=== PATIENT | female | born 1945 | race Caucasian/White ===

== ENCOUNTER 2022-06-12 09:02 | Outpatient (CLI) | payer OTHER, SELFPAY | END 2022-06-12 09:03 | disposition home or self-care (01) | PROVIDERS: Visit Provider Emergency Medicine | DX: R53.1 Weakness (principal) | CPT/HCPCS: A0425; A0428 ==

== ENCOUNTER 2022-06-12 11:24 | Outpatient (CLI) | payer OTHER, SELFPAY | END 2022-06-12 11:25 | disposition home or self-care (01) | LOC: AMB 06-14 14:04 | PROVIDERS: Visit Provider Emergency Medicine | DX: R53.1 Weakness (principal) | CPT/HCPCS: A0425; A0428 ==

== ENCOUNTER → 2022-10-18 10:00 | Inpatient (IN) | payer MEDICAID, SELFPAY ==
[2021-08-16] MEDS: ACETAMINOPHEN 500 MG TABLET 1000 MG PO ×3 (07:19→19:20)
[2021-08-16] MEDS: FLUOXETINE HCL 10 MG CAPSULE PO (07:20)
[2021-08-16] MEDS: OXYCODONE 5 MG TABLET PO ×4 (07:20→19:21)
[2021-08-16] MEDS: SENNOSIDES/DOCUSATE TABLET 2 TAB PO ×2 (07:21→19:22)
--- NOTE | 2021-08-16 10:29 | PC.NURSE ---
Covid-5 day nasal Covid Swab done at this time, sent to lab
[2021-08-16 12:33] LABS: SARS PCR* Negative SARS-CoV-2 (Negative)
--- NOTE | 2021-08-16 13:02 | PC.NURSE ---
Orders-Maggie STEARNS here was shown [facility] orders that were written from Visit to have Pump changed, per WASHROOM ATTENDANT no changes in current medications.
--- NOTE | 2021-08-16 13:05 | PC.NURSE ---
Dressing/foot-Maggie SALES TRADER here was updated on incision from Baclofen pump being changed, has steri-strips presents site is clean and dry per SALES TRADER keep open to air no dressing needs to be applied. Dressing was changed on right outer foot, area had very minimal drainage, looks much than yesterday.
[2021-08-16 16:00] VITALS: TEMP 37; O2SAT 98
[2021-08-17] MEDS: OXYCODONE 5 MG TABLET PO ×4 (04:14→19:03)
[2021-08-17] MEDS: ACETAMINOPHEN 500 MG TABLET 1000 MG PO ×3 (07:33→19:03)
[2021-08-17] MEDS: SENNOSIDES/DOCUSATE TABLET 2 TAB PO ×2 (08:29→19:03)
[2021-08-17] MEDS: FLUOXETINE HCL 10 MG CAPSULE PO (08:29)
--- NOTE | 2021-08-17 13:09 | PC.NURSE ---
Xkzotlwk-Mlojx-vcqerp remain in place, no S/S of infection C/O discomfort when turning in bed and transfers when asked where states Where do you think, Im cut up @ 0955 PRN pain medication given for comfort, at this time no complaints, O/A on right outer foot showed no drainage present, dressing changed.
[2021-08-17 16:00] VITALS: TEMP 35.7; O2SAT 99
--- NOTE | 2021-08-17 17:34 | PC.NURSE ---
[facility] upcoming appt on 08/23/21 for baclofen pump. Spoke to [facility] team and appointment is not needed at this time as she recently had baclofen pump replaced. Next baclofen pump refill is due by 01/08/22.
[2021-08-18] MEDS: OXYCODONE 5 MG TABLET PO ×4 (04:08→19:12)
[2021-08-18] MEDS: ACETAMINOPHEN 500 MG TABLET 1000 MG PO ×3 (08:31→19:12)
[2021-08-18] MEDS: FLUOXETINE HCL 10 MG CAPSULE PO (08:31)
[2021-08-18] MEDS: SENNOSIDES/DOCUSATE TABLET 2 TAB PO ×2 (08:31→19:12)
--- NOTE | 2021-08-18 15:00 | PC.PHA ---
Pharmacy Review ~ Patient continues on baclofen pump for MS. Pain managed with scheduled acetaminophen (TID) and oxycodone 5 mg tid. Oxycodone prn required similar number of times in June and July. Cefadroxil 500 mg bid started late July for cellulitis on foot. Fluoxetine 10 mg continues.
[2021-08-18 16:00] VITALS: TEMP 36.1; O2SAT 98
[2021-08-19] MEDS: OXYCODONE 5 MG TABLET PO ×5 (04:08→19:05)
[2021-08-19] MEDS: SENNOSIDES/DOCUSATE TABLET 2 TAB PO ×2 (07:34→19:05)
[2021-08-19] MEDS: FLUOXETINE HCL 10 MG CAPSULE PO (07:34)
[2021-08-19] MEDS: ACETAMINOPHEN 500 MG TABLET 1000 MG PO ×3 (07:34→19:05)
--- NOTE | 2021-08-19 12:41 | PC.NURSE ---
Recert Visit: Resident seen by Dr. Cuellar. Orders reviewed and renewed of 75 days without changes.
[2021-08-19 17:06] VITALS: BP 160/94; PULSE 60; RESP 16; TEMP 36.1; O2SAT 99
[2021-08-20] MEDS: OXYCODONE 5 MG TABLET PO ×5 (03:11→19:02)
[2021-08-20] MEDS: SENNOSIDES/DOCUSATE TABLET 2 TAB PO ×2 (07:15→19:03)
[2021-08-20] MEDS: ACETAMINOPHEN 500 MG TABLET 1000 MG PO ×3 (07:15→19:02)
[2021-08-20] MEDS: FLUOXETINE HCL 10 MG CAPSULE PO (07:15)
[2021-08-20 16:00] VITALS: TEMP 36.2; O2SAT 97
[2021-08-21] MEDS: OXYCODONE 5 MG TABLET PO ×4 (04:08→19:26)
[2021-08-21] MEDS: SENNOSIDES/DOCUSATE TABLET 2 TAB PO ×2 (07:18→19:26)
[2021-08-21] MEDS: ACETAMINOPHEN 500 MG TABLET 1000 MG PO ×3 (07:18→19:26)
[2021-08-21] MEDS: FLUOXETINE HCL 10 MG CAPSULE PO (07:18)
[2021-08-21 16:03] VITALS: TEMP 36.1; O2SAT 98
[2021-08-22] MEDS: OXYCODONE 5 MG TABLET PO ×4 (04:13→19:01)
[2021-08-22] MEDS: ACETAMINOPHEN 500 MG TABLET 1000 MG PO ×3 (07:12→19:01)
[2021-08-22] MEDS: SENNOSIDES/DOCUSATE TABLET 2 TAB PO ×2 (07:13→19:01)
[2021-08-22] MEDS: FLUOXETINE HCL 10 MG CAPSULE PO (07:13)
[2021-08-22 16:00] VITALS: TEMP 36.1; O2SAT 97
[2021-08-23] MEDS: OXYCODONE 5 MG TABLET PO ×6 (00:39→19:15)
[2021-08-23] MEDS: ACETAMINOPHEN 500 MG TABLET 1000 MG PO ×3 (07:27→19:15)
[2021-08-23] MEDS: SENNOSIDES/DOCUSATE TABLET 2 TAB PO ×2 (07:28→19:15)
[2021-08-23] MEDS: FLUOXETINE HCL 10 MG CAPSULE PO (07:28)
[2021-08-23 16:00] VITALS: TEMP 36.7; O2SAT 95
[2021-08-24] MEDS: OXYCODONE 5 MG TABLET PO ×4 (04:00→19:36)
[2021-08-24] MEDS: FLUOXETINE HCL 10 MG CAPSULE PO (07:01)
[2021-08-24] MEDS: ACETAMINOPHEN 500 MG TABLET 1000 MG PO ×3 (07:01→19:36)
[2021-08-24] MEDS: SENNOSIDES/DOCUSATE TABLET 2 TAB PO ×2 (07:01→19:36)
[2021-08-24 16:00] VITALS: TEMP 35.7; O2SAT 98
[2021-08-25] MEDS: OXYCODONE 5 MG TABLET PO ×4 (03:58→19:12)
[2021-08-25] MEDS: SENNOSIDES/DOCUSATE TABLET 2 TAB PO ×2 (08:39→19:12)
[2021-08-25] MEDS: ACETAMINOPHEN 500 MG TABLET 1000 MG PO ×3 (08:39→19:12)
[2021-08-25] MEDS: FLUOXETINE HCL 10 MG CAPSULE PO (08:40)
[2021-08-25 16:00] VITALS: TEMP 36.2; O2SAT 99
--- NOTE | 2021-08-26 02:22 | PC.NURSE ---
Week #1---care plan problems #1-19 reviewed. No changes made. Nothing added to temporary care plan. Will drink water in good amts. Staff hold the covered mug or glass while she drinks thru a straw. Pain---did c/o abd. pain at noc x 2---related to surgery to replace Baclofen pump. Relief with scheduled Oxycodone 5 mg. Continues to receive Tylenol 1000 mg tid and Oxycodone 5 mg qid and q4h prn.
[2021-08-26] MEDS: OXYCODONE 5 MG TABLET PO ×4 (04:19→19:34)
--- NOTE | 2021-08-26 06:51 | PC.NURSE ---
Week #1: Care plan problems -19 and temporary care plan reviewed. No changes made. Nothing added to temporary care plan. Resident needs total assistance of 1-2 with dressing, grooming, personal hygiene and bathing. Bed bath only. Is unable to tolerate bathing in the tub d/t back/bottom pain and poor posture. One assist with oral cares. May require partial to total assistance with feeding. Uses covered cups for all liquids. Is on regular diet, small portions per her request. No problems noted with her eating patterns. Pain: Has chronic pain controlled with Tylenol 1000 mg TID, Oxycodone 5 mg QID & Q4H PRN and has used occasionally. She can verbalize when in pain and other times staff anticipates.
[2021-08-26] MEDS: ACETAMINOPHEN 500 MG TABLET 1000 MG PO ×3 (07:18→19:34)
[2021-08-26] MEDS: SENNOSIDES/DOCUSATE TABLET 2 TAB PO ×2 (07:18→19:34)
[2021-08-26] MEDS: FLUOXETINE HCL 10 MG CAPSULE PO (07:18)
[2021-08-26 10:37] VITALS: BP 132/70; PULSE 69; RESP 18; TEMP 36.4; O2SAT 98
--- NOTE | 2021-08-26 10:42 | PC.NURSE ---
Podiatry: Resident seen by In House Shafting Worker on 08/25/21.
[2021-08-26 21:33] VITALS: TEMP 36.3; O2SAT 99
[2021-08-27] MEDS: OXYCODONE 5 MG TABLET PO ×4 (04:24→19:18)
[2021-08-27] MEDS: FLUOXETINE HCL 10 MG CAPSULE PO (07:11)
[2021-08-27] MEDS: ACETAMINOPHEN 500 MG TABLET 1000 MG PO ×3 (07:11→19:13)
[2021-08-27] MEDS: SENNOSIDES/DOCUSATE TABLET 2 TAB PO ×2 (07:12→19:18)
[2021-08-27 17:19] VITALS: TEMP 36.6; O2SAT 98
[2021-08-28] MEDS: OXYCODONE 5 MG TABLET PO ×5 (04:15→20:13)
[2021-08-28] MEDS: ACETAMINOPHEN 500 MG TABLET 1000 MG PO ×3 (07:01→20:13)
[2021-08-28] MEDS: SENNOSIDES/DOCUSATE TABLET 2 TAB PO ×2 (07:02→20:13)
[2021-08-28] MEDS: FLUOXETINE HCL 10 MG CAPSULE PO (07:02)
[2021-08-28 16:00] VITALS: TEMP 36.3; O2SAT 95
[2021-08-29] MEDS: OXYCODONE 5 MG TABLET PO ×5 (03:24→19:25)
[2021-08-29] MEDS: SENNOSIDES/DOCUSATE TABLET 2 TAB PO ×2 (07:13→19:25)
[2021-08-29] MEDS: FLUOXETINE HCL 10 MG CAPSULE PO (07:13)
[2021-08-29] MEDS: ACETAMINOPHEN 500 MG TABLET 1000 MG PO ×3 (07:13→19:25)
--- NOTE | 2021-08-29 13:41 | PC.NURSE ---
Status/foot-Noted to have clear drainage from nose 90% of shift, Afebrile @ 99.4 SATS 94% P-64 LS clear, face flushed at times, no change in appetite, had confusion off and on through out shift, no change in outer right foot, remains open with scant amt of dried blood on dressing.
[2021-08-29 21:33] VITALS: TEMP 36.6; O2SAT 95
--- NOTE | 2021-08-29 21:35 | PC.NURSE ---
Status: Resident confused on PM shift asking press writer if she was going to the [facility] or going to [place] tomorrow and, that she needed to go on the toilet. Resident was easy to redirect but, only for a short period of time.
[2021-08-30] MEDS: OXYCODONE 5 MG TABLET PO ×5 (04:18→19:22)
--- NOTE | 2021-08-30 05:08 | PC.NURSE ---
Status---no runny nose during the noc. Face not flushed. Temp was 99.5 at 0430. Took fluids as usual. No increased confusion.
[2021-08-30] MEDS: FLUOXETINE HCL 10 MG CAPSULE PO (07:18)
[2021-08-30] MEDS: SENNOSIDES/DOCUSATE TABLET 2 TAB PO ×2 (07:18→19:22)
[2021-08-30] MEDS: ACETAMINOPHEN 500 MG TABLET 1000 MG PO ×3 (07:18→19:22)
--- NOTE | 2021-08-30 10:38 | PC.SPIRITC ---
Late Entry-Chaplain Rome, provided visit for support on 08/28/2021
--- NOTE | 2021-08-30 12:47 | PC.NURSE ---
F/U-No nasal drainage this shift, normal face color, T-98.1, C/O pain when foot TX done and being transferred from bed to W/C. PRN pain medication given. no further complaints.
[2021-08-30 12:58] VITALS: TEMP 36.7; O2SAT 97
[2021-08-30 16:00] VITALS: TEMP 36.8; O2SAT 97
[2021-08-30 23:00] VITALS: TEMP 36.4; O2SAT 97
[2021-08-31] MEDS: OXYCODONE 5 MG TABLET PO ×4 (04:10→19:50)
[2021-08-31 07:00] VITALS: TEMP 36.4; O2SAT 96
[2021-08-31] MEDS: SENNOSIDES/DOCUSATE TABLET 2 TAB PO ×2 (07:07→19:50)
[2021-08-31] MEDS: FLUOXETINE HCL 10 MG CAPSULE PO (07:07)
[2021-08-31] MEDS: ACETAMINOPHEN 500 MG TABLET 1000 MG PO ×3 (07:07→19:49)
--- NOTE | 2021-08-31 09:39 | PC.NURSE ---
Incision site healed. Tx no longer needed.
[2021-08-31 22:00] VITALS: TEMP 35.9; O2SAT 97
[2021-08-31 23:00] VITALS: TEMP 36.6; O2SAT 96
[2021-09-01] MEDS: OXYCODONE 5 MG TABLET PO ×4 (04:12→19:42)
[2021-09-01] MEDS: SENNOSIDES/DOCUSATE TABLET 2 TAB PO ×2 (07:05→19:42)
[2021-09-01] MEDS: ACETAMINOPHEN 500 MG TABLET 1000 MG PO ×3 (07:05→19:42)
[2021-09-01] MEDS: FLUOXETINE HCL 10 MG CAPSULE PO (07:05)
[2021-09-01 10:44] VITALS: TEMP 36.3; O2SAT 94
[2021-09-01 21:34] VITALS: TEMP 36.1; O2SAT 96
[2021-09-01 22:24] LABS: SARS PCR* Negative SARS-CoV-2 (Negative)
[2021-09-01 23:00] VITALS: TEMP 36.5; O2SAT 93
--- NOTE | 2021-09-02 03:12 | PC.NURSE ---
Week #2---care plan problems #20-29 reviewed. No changes made. Nothing added to temporary care plan. Does not get out of bed at [facility]. Is repositioned from side to side on 1st and 3rd rounds. Positioned with pillows behind her back, under her lower legs, and between her legs. Heel protectors on. Air mattress on. Top siderails up. Falls---no falls this past month. Is a low fall risk according to assessment done on 04/21/21.
[2021-09-02] MEDS: OXYCODONE 5 MG TABLET PO ×4 (04:27→19:31)
[2021-09-02 07:00] VITALS: TEMP 36.7; O2SAT 97
[2021-09-02] MEDS: ACETAMINOPHEN 500 MG TABLET 1000 MG PO ×3 (07:13→19:31)
[2021-09-02] MEDS: SENNOSIDES/DOCUSATE TABLET 2 TAB PO ×2 (07:13→19:31)
[2021-09-02] MEDS: FLUOXETINE HCL 10 MG CAPSULE PO (07:13)
--- NOTE | 2021-09-02 07:20 | PC.NURSE ---
Week #2: Care plan problems - and temporary care plan reviewed. No changes made. Nothing added to temporary care plan. Resident is non ambulatory. Transfers with a margo lift and 2 assists. Staff to propel to all destinations. Is T & R, offload/tilt every 2 hours with 1-2 assists. Top side rails in bed to aid for positioning. No alarms. Staff to do gentle ROM to upper and lower extremities during cares and dressing. Fall: Has had no falls. Remains a low fall risk according to assessment done on 04/21/21.
[2021-09-02 16:34] VITALS: BP 188/78; PULSE 58; RESP 18; TEMP 36.1; O2SAT 97
[2021-09-02 21:46] VITALS: TEMP 36.1; O2SAT 97
[2021-09-02 23:00] VITALS: TEMP 36.8; O2SAT 96
[2021-09-03] MEDS: OXYCODONE 5 MG TABLET PO ×5 (03:44→19:29)
[2021-09-03 07:00] VITALS: TEMP 36.9; O2SAT 97
[2021-09-03] MEDS: ACETAMINOPHEN 500 MG TABLET 1000 MG PO ×3 (07:11→19:28)
[2021-09-03] MEDS: SENNOSIDES/DOCUSATE TABLET 2 TAB PO ×2 (07:11→19:29)
[2021-09-03] MEDS: FLUOXETINE HCL 10 MG CAPSULE PO (07:11)
--- NOTE | 2021-09-03 10:44 | PC.NURSE ---
Foot-Dressing change done to right outer foot, open area is filling in with new pink in color tissue, no drainage,no blood present, is clean,dry.
[2021-09-03 21:27] VITALS: TEMP 36.5; O2SAT 97
[2021-09-03 23:00] VITALS: TEMP 36.3; O2SAT 98
[2021-09-04] MEDS: OXYCODONE 5 MG TABLET PO ×4 (03:59→19:45)
[2021-09-04 07:00] VITALS: TEMP 37.1; O2SAT 97
[2021-09-04] MEDS: SENNOSIDES/DOCUSATE TABLET 2 TAB PO ×2 (07:36→19:45)
[2021-09-04] MEDS: ACETAMINOPHEN 500 MG TABLET 1000 MG PO ×3 (07:36→19:45)
[2021-09-04] MEDS: FLUOXETINE HCL 10 MG CAPSULE PO (07:36)
[2021-09-04 21:13] VITALS: TEMP 36.4; O2SAT 95
[2021-09-04 23:00] VITALS: TEMP 36.2; O2SAT 95
[2021-09-05] MEDS: OXYCODONE 5 MG TABLET PO ×4 (04:07→19:19)
[2021-09-05] MEDS: FLUOXETINE HCL 10 MG CAPSULE PO (07:10)
[2021-09-05] MEDS: SENNOSIDES/DOCUSATE TABLET 2 TAB PO ×2 (07:10→19:19)
[2021-09-05] MEDS: ACETAMINOPHEN 500 MG TABLET 1000 MG PO ×3 (07:10→19:19)
[2021-09-05 12:54] VITALS: TEMP 36.9; O2SAT 97
[2021-09-05 15:46] LABS: SARS PCR* Negative SARS-CoV-2 (Negative)
[2021-09-05 21:28] VITALS: TEMP 36.3; O2SAT 97
[2021-09-05 23:00] VITALS: TEMP 36.3; O2SAT 95
[2021-09-06] MEDS: OXYCODONE 5 MG TABLET PO ×4 (04:06→19:01)
[2021-09-06 07:00] VITALS: TEMP 37.1; O2SAT 97
[2021-09-06] MEDS: FLUOXETINE HCL 10 MG CAPSULE PO (07:22)
[2021-09-06] MEDS: SENNOSIDES/DOCUSATE TABLET 2 TAB PO ×2 (07:23→19:02)
[2021-09-06] MEDS: ACETAMINOPHEN 500 MG TABLET 1000 MG PO ×3 (08:14→19:01)
--- NOTE | 2021-09-06 12:53 | PC.NURSE ---
Skin-After bed bath marketing writer went to check skin, at that time found 5 green in color bruises on outer left leg, denies pain when area is touched, no swelling or redness is noted, unable to state what happened to leg, incident report filled out at this time.
[2021-09-06 15:00] VITALS: TEMP 37.1; O2SAT 97
[2021-09-06 23:00] VITALS: TEMP 35.8; O2SAT 93
[2021-09-07] MEDS: OXYCODONE 5 MG TABLET PO ×4 (04:27→19:03)
[2021-09-07] MEDS: FLUOXETINE HCL 10 MG CAPSULE PO (08:28)
[2021-09-07] MEDS: ACETAMINOPHEN 500 MG TABLET 1000 MG PO ×3 (08:28→19:03)
[2021-09-07] MEDS: SENNOSIDES/DOCUSATE TABLET 2 TAB PO ×2 (08:28→19:03)
[2021-09-07 11:14] VITALS: TEMP 36.3; O2SAT 98
--- NOTE | 2021-09-07 11:15 | PC.NURSE ---
Wound note - R heel pressure injury. Dressing changed. Wound has formed a scab, new skin growth is visible around edges. Wound is 2-3 cm in diameter. No drainage. Medihoney, moist gauze, and mepilex applied.
--- NOTE | 2021-09-07 15:59 | PC.PHA ---
Pharmacy Note~Oxycodone 5 mg q4h prn needed 9 times since 08/16/21. Scheduled oxycodone 5 mg qid continues. No need for prn baclofen as pump continues as well for MS management. Acetaminophen 1000 mg tid scheduled. Fluoxetine 10 mg is low dose but has been effective.
[2021-09-07 21:49] VITALS: TEMP 36.8; O2SAT 94
[2021-09-07 23:00] VITALS: TEMP 36.5; O2SAT 98
[2021-09-08] MEDS: OXYCODONE 5 MG TABLET PO ×4 (04:36→19:31)
[2021-09-08 07:00] VITALS: TEMP 36.6; O2SAT 98
[2021-09-08] MEDS: FLUOXETINE HCL 10 MG CAPSULE PO (07:10)
[2021-09-08] MEDS: ACETAMINOPHEN 500 MG TABLET 1000 MG PO ×3 (07:10→19:31)
[2021-09-08] MEDS: SENNOSIDES/DOCUSATE TABLET 2 TAB PO ×2 (07:11→19:31)
--- NOTE | 2021-09-08 09:04 | PC.SPIRITC ---
Late Entry ? met with resident for connection and support on 09/07/21.
--- NOTE | 2021-09-08 13:12 | PC.NURSE ---
Wound/Order: (R) foot wound assessed by Renuka STEARNS. Wound Treatment: Cleanse with wound cleanser, place area with gauze soaked in normal saline, cover with Mepilex, change QOD. D/C Hank.
[2021-09-08 21:28] VITALS: TEMP 36.4; O2SAT 96
[2021-09-08 23:00] VITALS: TEMP 36.5; O2SAT 94
--- NOTE | 2021-09-09 02:20 | PC.NURSE ---
Week #3---care plan problems #30-39 reviewed. No changes made. Nothing added to temporary care plan. Continues to be incont. of B and B. Wears a large brief which is managed by staff. Is checked and changed on 1st and 3rd rounds. All pericare done by staff. Skin---Right foot dressing---wound cleanser, place gauze soaked in normal saline, cover with Mepilex, change qod. Heel protectors worn at [facility]. Pillows placed under lower legs and between her legs.
[2021-09-09] MEDS: OXYCODONE 5 MG TABLET PO ×4 (04:10→19:06)
[2021-09-09] MEDS: ACETAMINOPHEN 500 MG TABLET 1000 MG PO ×3 (07:00→19:06)
[2021-09-09] MEDS: FLUOXETINE HCL 10 MG CAPSULE PO (07:00)
[2021-09-09] MEDS: SENNOSIDES/DOCUSATE TABLET 2 TAB PO ×2 (07:00→19:06)
--- NOTE | 2021-09-09 07:33 | PC.NURSE ---
Week #3: Care plan problems 30-39 and temporary care plan reviewed. No changes made. Nothing added to temporary care plan. Resident is incontinent of bowel & bladder. Is totally dependent on staff for all toileting needs. Does not use the toilet. Is checked and changed q2h & PRN. Wears large briefs. Pads, enriqueta cares, clothing adjustment managed by staff. Skin: Has a wound on (R) foot with wound treatment done qod and assessed by THOROUGHBRED HORSE FARM MANAGER. Skin is checked during cares and baths.
[2021-09-09 12:24] VITALS: BP 157/63; PULSE 66; RESP 18; TEMP 36.5; O2SAT 96
[2021-09-09 21:07] VITALS: TEMP 36.2; O2SAT 98
[2021-09-09 23:00] VITALS: TEMP 36.3; O2SAT 94
[2021-09-10] MEDS: OXYCODONE 5 MG TABLET PO ×4 (04:09→19:11)
[2021-09-10] MEDS: ACETAMINOPHEN 500 MG TABLET 1000 MG PO ×3 (07:06→19:11)
[2021-09-10] MEDS: FLUOXETINE HCL 10 MG CAPSULE PO (07:07)
[2021-09-10] MEDS: SENNOSIDES/DOCUSATE TABLET 2 TAB PO ×2 (07:07→19:11)
[2021-09-10 12:30] VITALS: TEMP 36.6; O2SAT 94
[2021-09-10 16:34] VITALS: TEMP 36.3; O2SAT 98
[2021-09-10 23:00] VITALS: TEMP 36.3; O2SAT 96
[2021-09-11] MEDS: OXYCODONE 5 MG TABLET PO ×4 (04:05→19:14)
[2021-09-11] MEDS: FLUOXETINE HCL 10 MG CAPSULE PO (07:15)
[2021-09-11] MEDS: ACETAMINOPHEN 500 MG TABLET 1000 MG PO ×3 (07:15→19:14)
[2021-09-11] MEDS: SENNOSIDES/DOCUSATE TABLET 2 TAB PO ×2 (07:15→19:14)
[2021-09-11 10:01] VITALS: TEMP 36.4; O2SAT 96
[2021-09-11 15:00] VITALS: TEMP 36.1; O2SAT 97
[2021-09-11 23:00] VITALS: TEMP 36.2; O2SAT 95
[2021-09-12] MEDS: OXYCODONE 5 MG TABLET PO ×4 (03:54→19:32)
[2021-09-12] MEDS: SENNOSIDES/DOCUSATE TABLET 2 TAB PO ×2 (07:18→19:32)
[2021-09-12] MEDS: ACETAMINOPHEN 500 MG TABLET 1000 MG PO ×3 (07:18→19:32)
[2021-09-12] MEDS: FLUOXETINE HCL 10 MG CAPSULE PO (07:18)
[2021-09-12 13:14] VITALS: TEMP 36.3; O2SAT 94
[2021-09-12 20:34] VITALS: TEMP 36.1; O2SAT 94
[2021-09-12 20:51] LABS: SARS PCR* Negative SARS-CoV-2 (Negative)
[2021-09-12 23:00] VITALS: TEMP 36.1; O2SAT 98
[2021-09-13] MEDS: OXYCODONE 5 MG TABLET PO ×4 (04:08→19:36)
[2021-09-13 07:00] VITALS: TEMP 36.3; O2SAT 98
[2021-09-13] MEDS: ACETAMINOPHEN 500 MG TABLET 1000 MG PO ×3 (07:20→19:36)
[2021-09-13] MEDS: FLUOXETINE HCL 10 MG CAPSULE PO (07:20)
[2021-09-13] MEDS: SENNOSIDES/DOCUSATE TABLET 2 TAB PO ×2 (07:20→19:36)
[2021-09-13 21:12] VITALS: TEMP 36.3; O2SAT 99
[2021-09-13 23:00] VITALS: TEMP 36.2; O2SAT 94
[2021-09-14] MEDS: OXYCODONE 5 MG TABLET PO ×5 (04:08→19:20)
[2021-09-14] MEDS: ACETAMINOPHEN 500 MG TABLET 1000 MG PO ×3 (07:24→19:20)
[2021-09-14] MEDS: FLUOXETINE HCL 10 MG CAPSULE PO (07:25)
[2021-09-14] MEDS: SENNOSIDES/DOCUSATE TABLET 2 TAB PO ×2 (07:25→19:20)
[2021-09-14 16:00] VITALS: TEMP 36.2; O2SAT 98
[2021-09-15] MEDS: OXYCODONE 5 MG TABLET PO ×4 (04:07→19:27)
[2021-09-15] MEDS: SENNOSIDES/DOCUSATE TABLET 2 TAB PO ×2 (07:03→19:27)
[2021-09-15] MEDS: FLUOXETINE HCL 10 MG CAPSULE PO (07:03)
[2021-09-15] MEDS: ACETAMINOPHEN 500 MG TABLET 1000 MG PO ×3 (07:03→19:27)
--- NOTE | 2021-09-15 12:12 | PC.NURSE ---
Wound/Order: (R) foot wound assessed by MACHINE BOSS. Order: Cleanse with wound cleanser, apply Mepitel, Change q5 days,
[2021-09-15 21:35] VITALS: TEMP 35.9; O2SAT 99
--- NOTE | 2021-09-16 02:31 | PC.NURSE ---
Week #4---care plan problems #40+ reviewed and updated re: wound treatment. Nothing added to temporary care plan. Occ. uses call light but mostly needs are anticipated by staff. No changes noted in hearing, vision, or orientation. No behavior problems at noc. Sleeps most of the time between cares. Continues on Prozac 10 mg qd with no adverse effects noted.
[2021-09-16] MEDS: OXYCODONE 5 MG TABLET PO ×4 (04:11→20:37)
[2021-09-16] MEDS: ACETAMINOPHEN 500 MG TABLET 1000 MG PO ×3 (07:14→20:37)
[2021-09-16] MEDS: SENNOSIDES/DOCUSATE TABLET 2 TAB PO ×2 (07:15→20:38)
[2021-09-16] MEDS: FLUOXETINE HCL 10 MG CAPSULE PO (07:15)
[2021-09-16 17:03] VITALS: TEMP 36.3; O2SAT 98
[2021-09-17] MEDS: OXYCODONE 5 MG TABLET PO ×4 (03:50→19:36)
[2021-09-17] MEDS: FLUOXETINE HCL 10 MG CAPSULE PO (08:55)
[2021-09-17] MEDS: SENNOSIDES/DOCUSATE TABLET 2 TAB PO ×2 (08:55→19:36)
[2021-09-17] MEDS: ACETAMINOPHEN 500 MG TABLET 1000 MG PO ×3 (08:55→19:36)
[2021-09-17 21:16] VITALS: TEMP 35.9; O2SAT 96
[2021-09-18] MEDS: OXYCODONE 5 MG TABLET PO ×4 (03:45→19:40)
[2021-09-18] MEDS: ACETAMINOPHEN 500 MG TABLET 1000 MG PO ×3 (07:07→19:40)
[2021-09-18] MEDS: SENNOSIDES/DOCUSATE TABLET 2 TAB PO ×2 (07:07→19:40)
[2021-09-18] MEDS: FLUOXETINE HCL 10 MG CAPSULE PO (07:07)
[2021-09-18 21:14] VITALS: TEMP 35.9; O2SAT 97
[2021-09-19] MEDS: SENNOSIDES/DOCUSATE TABLET 2 TAB PO ×2 (07:06→19:40)
[2021-09-19] MEDS: FLUOXETINE HCL 10 MG CAPSULE PO (07:06)
[2021-09-19] MEDS: ACETAMINOPHEN 500 MG TABLET 1000 MG PO ×3 (07:06→19:40)
[2021-09-19] MEDS: OXYCODONE 5 MG TABLET PO ×4 (11:02→19:40)
[2021-09-19 21:31] VITALS: TEMP 36.1; O2SAT 95
[2021-09-20] MEDS: OXYCODONE 5 MG TABLET PO ×4 (04:20→19:07)
[2021-09-20] MEDS: ACETAMINOPHEN 500 MG TABLET 1000 MG PO ×3 (07:24→19:07)
[2021-09-20] MEDS: FLUOXETINE HCL 10 MG CAPSULE PO (07:25)
[2021-09-20] MEDS: SENNOSIDES/DOCUSATE TABLET 2 TAB PO ×2 (07:25→19:08)
[2021-09-20 16:00] VITALS: TEMP 36.6; O2SAT 96
[2021-09-21] MEDS: OXYCODONE 5 MG TABLET PO ×5 (04:11→19:46)
[2021-09-21] MEDS: ACETAMINOPHEN 500 MG TABLET 1000 MG PO ×3 (07:37→19:46)
[2021-09-21] MEDS: FLUOXETINE HCL 10 MG CAPSULE PO (07:37)
[2021-09-21] MEDS: SENNOSIDES/DOCUSATE TABLET 2 TAB PO ×2 (07:37→19:46)
[2021-09-21 21:15] VITALS: TEMP 35.9; O2SAT 96
[2021-09-22] MEDS: OXYCODONE 5 MG TABLET PO ×4 (03:51→19:48)
[2021-09-22] MEDS: ACETAMINOPHEN 500 MG TABLET 1000 MG PO ×3 (07:01→19:48)
[2021-09-22] MEDS: FLUOXETINE HCL 10 MG CAPSULE PO (07:01)
[2021-09-22] MEDS: SENNOSIDES/DOCUSATE TABLET 2 TAB PO ×2 (07:02→19:48)
--- NOTE | 2021-09-22 11:05 | PC.NURSE ---
Right outer ball of foot wound assessed with FILTER WORKER. Discussed new order cleanse with wound cleanser, apply band-aid, complete daily.
--- NOTE | 2021-09-22 13:43 | PC.NURSE ---
Status/Order: Right foot wound assessed by Renuka STEARNS. Order: Cleanse with wound cleanser. Apply band aid, change daily.
[2021-09-22 21:45] VITALS: TEMP 36.2; O2SAT 97
--- NOTE | 2021-09-23 02:45 | PC.NURSE ---
Week #1---care plan problems #1-19 reviewed. No changes made. Nothing added to temporary care plan. Will take a good drink of water when awake for cares and with med at 0400. Staff hold the covered mug or glass while she drinks thru a straw. Pain---c/o chronic pain at noc x 1 this past month. Relief with sheri. Oxycodone. Continues to receive Tylenol 1000 mg tid and Oxycodone 5 mg qid and q4h prn.
[2021-09-23] MEDS: OXYCODONE 5 MG TABLET PO ×4 (04:08→19:23)
--- NOTE | 2021-09-23 06:50 | PC.NURSE ---
Week #1: Care plan problems -19 and temporary care plan reviewed. No changes made. Nothing added to temporary care plan. Resident needs total assistance of 1-2 with dressing, grooming, and bathing. Bed bath only. Staff does oral cares. Is on regular diet, small portions per her request. Needs PRN assistance at meals. Receives nourishment at noon. No problems with chewing or swallowing noted. Pain: Has chronic pain. No complain of pain this past month. Pain is managed with Tylenol 1000mg TID, Oxycodone 5mg QID. And also an order for Oxycodone 5mg Q4H PRN. Can tell when in pain and staff also anticipates.
[2021-09-23] MEDS: ACETAMINOPHEN 500 MG TABLET 1000 MG PO ×3 (07:03→19:23)
[2021-09-23] MEDS: SENNOSIDES/DOCUSATE TABLET 2 TAB PO ×2 (07:03→19:23)
[2021-09-23] MEDS: FLUOXETINE HCL 10 MG CAPSULE PO (07:03)
[2021-09-23 10:46] VITALS: BP 128/61; PULSE 65; RESP 18; TEMP 36.2; O2SAT 98
[2021-09-23 16:00] VITALS: TEMP 35.8; O2SAT 98
[2021-09-24] MEDS: OXYCODONE 5 MG TABLET PO ×3 (04:12→19:03)
[2021-09-24] MEDS: FLUOXETINE HCL 10 MG CAPSULE PO (07:05)
[2021-09-24] MEDS: SENNOSIDES/DOCUSATE TABLET 2 TAB PO ×2 (07:05→19:03)
[2021-09-24] MEDS: ACETAMINOPHEN 500 MG TABLET 1000 MG PO ×2 (07:05→19:03)
[2021-09-24 16:46] VITALS: TEMP 36.2; O2SAT 98
[2021-09-25] MEDS: OXYCODONE 5 MG TABLET PO ×4 (04:13→19:03)
[2021-09-25] MEDS: FLUOXETINE HCL 10 MG CAPSULE PO (07:10)
[2021-09-25] MEDS: SENNOSIDES/DOCUSATE TABLET 2 TAB PO ×2 (07:10→19:03)
[2021-09-25] MEDS: ACETAMINOPHEN 500 MG TABLET 1000 MG PO ×3 (07:10→19:03)
[2021-09-25 17:01] VITALS: TEMP 35.7; O2SAT 99
[2021-09-26] MEDS: OXYCODONE 5 MG TABLET PO ×4 (04:22→19:32)
[2021-09-26] MEDS: ACETAMINOPHEN 500 MG TABLET 1000 MG PO ×3 (07:13→19:32)
[2021-09-26] MEDS: SENNOSIDES/DOCUSATE TABLET 2 TAB PO ×2 (07:14→19:32)
[2021-09-26] MEDS: FLUOXETINE HCL 10 MG CAPSULE PO (07:14)
[2021-09-26 21:23] VITALS: TEMP 35.7; O2SAT 99
[2021-09-26 23:00] VITALS: TEMP 37.3; O2SAT 93
[2021-09-27] MEDS: OXYCODONE 5 MG TABLET PO ×4 (04:15→19:56)
[2021-09-27 07:00] VITALS: TEMP 36.7; O2SAT 97
[2021-09-27] MEDS: ACETAMINOPHEN 500 MG TABLET 1000 MG PO ×3 (07:31→19:56)
[2021-09-27] MEDS: FLUOXETINE HCL 10 MG CAPSULE PO (07:32)
[2021-09-27] MEDS: SENNOSIDES/DOCUSATE TABLET 2 TAB PO ×2 (07:32→19:56)
--- NOTE | 2021-09-27 12:19 | PC.SPIRITC ---
Reinforced Ironworker provided visit for connection and to support resident's spiritual practices by reading [employer].
--- NOTE | 2021-09-27 12:42 | PC.NURSE ---
Drainage-Has small amt of clear nasal drainage coming from nose, and a scant amt of clear drainage coming from right eye that is per baseline D/T head leaning to the left.
[2021-09-27 15:00] VITALS: TEMP 36.7; O2SAT 96
[2021-09-27 19:28] LABS: SARS PCR* POSITIVE SARS-CoV-2 (Negative)
--- NOTE | 2021-09-27 21:40 | PC.NURSE ---
COVID-19 Status Update: Upon exhibiting S/S COVID this afternoon, resident was tested. Result is positive. DON, REGISTERED REPRESENTATIVE, and family notified and updated. Precaution chart is set-up. Will continue to monitor.
[2021-09-27 23:00] VITALS: TEMP 36.8; O2SAT 95
[2021-09-28] MEDS: OXYCODONE 5 MG TABLET PO ×2 (04:16→07:28)
--- NOTE | 2021-09-28 06:56 | PC.NURSE ---
Status per 1:1 CERTIFIED ENDOSCOPY TECHNICIAN---Res. had off and on non-productive cough during the noc. Drank good amts. water and voided per usual. Temp was 98.3. O2 sat 95% on room air.
[2021-09-28] MEDS: FLUOXETINE HCL 10 MG CAPSULE PO (07:28)
[2021-09-28] MEDS: SENNOSIDES/DOCUSATE TABLET 2 TAB PO ×2 (07:28→20:43)
[2021-09-28] MEDS: ACETAMINOPHEN 500 MG TABLET 1000 MG PO ×3 (07:28→20:43)
--- NOTE | 2021-09-28 09:14 | PC.NURSE ---
I spoke to daughter Lisa. She is concerned that we called Jessica to notify her of resident's Covid status. Lisa is the first contact and not Jessica.
[2021-09-28 10:11] LABS: Chloride* 106 mmol/L (96-114); Sodium* 140 mmol/L (135-149)
[2021-09-28 10:13] LABS: Potassium* 2.8 mmol/L (3.6-5.1)
[2021-09-28 10:14] LABS: Blood Urea Nitrogen* 10 mg/dL (7-30); Carbon Dioxide* 22 mmol/L (20-32); Creatinine* 0.4 mg/dL (0.5-1.5); Est. Creatinine Clearance* 37.24; Estimated Glomerular Filt Rate 103 ml/min; Glucose* 155 mg/dL (60-115)
[2021-09-28 10:15] LABS: Calcium* 8.4 mg/dL (8.4-10.6)
--- NOTE | 2021-09-28 10:28 | PC.NURSE ---
CRITICAL LAB: Resident has a critical lab Potassium of 2.8. [facility] updated. NEW ORDER: Potassium Chloride 10 MEQ daily due to hypokalemia/ Recheck BMP on 10/06/21. Daughter Elyssa updated via email.
[2021-09-28] MEDS: OXYCODONE 5 MG TABLET 2.5 MG PO ×3 (10:45→20:43)
--- NOTE | 2021-09-28 13:46 | PC.NURSE ---
Status-Per 1-1 nurse resident has ate small amt for meals, is talkative, color pale BP 135/60 P-76 R-18 STATS 93% normal breathing, has been in bed all shift per request, C/O pain x1 It's all over PRN pain medication given obtained relief.
[2021-09-28 21:35] VITALS: TEMP 36.8; O2SAT 95
--- NOTE | 2021-09-28 21:41 | PC.NURSE ---
Status: Resident did not eat dinner this shift. Nurse Maryellen told caption writer res. stated, I can't eat, I'm on a diet and need to lose weight. Was offered enlive and other snacks but refused. Temp 98.6, O2 sats 94%. No symptoms observed.
[2021-09-28 23:00] VITALS: TEMP 36.3; O2SAT 94
[2021-09-29] MEDS: OXYCODONE 5 MG TABLET 2.5 MG PO ×4 (04:12→19:26)
--- NOTE | 2021-09-29 05:51 | PC.NURSE ---
Status per 1:1 caregivers---Has seemed her usual self. Repositioned x 2. Incont. of urine x 2. Did drink water with med at 0400. Temp 97.4. O2 sat 94% on room air.
[2021-09-29] MEDS: ACETAMINOPHEN 500 MG TABLET 1000 MG PO ×3 (07:02→19:26)
[2021-09-29] MEDS: SENNOSIDES/DOCUSATE TABLET 2 TAB PO ×2 (07:49→19:26)
--- NOTE | 2021-09-29 09:50 | PC.NURSE ---
Status-Bed bath was done, repositioned, took all medications without problem, ate oatmeal, drank 100% of ensure, congestion audible, C/O sore throat. color pale, skin cool to the touch.
[2021-09-29 15:00] VITALS: TEMP 36.3; O2SAT 96
[2021-09-29] MEDS: POTASSIUM CHLORIDE 10 MEQ CAPSULE ER PO (16:44)
[2021-09-29 23:00] VITALS: BP 143/83; PULSE 59; RESP 18; TEMP 35.9; O2SAT 94
--- NOTE | 2021-09-30 01:49 | PC.NURSE ---
Week #2---care plan problems #20-29 reviewed. No changes made. Temporary care plan updated re: tested positive for Covid. Is on isolation precautions with 1:1 caregivers. Is also taking Paxlovid. Does not get out of bed during the noc. Is repositioned from side to side on 1st and 3rd rounds. Positioned with pillows behind her back, under her lower legs, and between her legs. Also wears heel protectors. Air mattress remains on bed. Top siderails up. Falls---no falls this past month. Remains a low fall risk according to assessment done on 04/21/21.
[2021-09-30] MEDS: OXYCODONE 5 MG TABLET 2.5 MG PO ×5 (04:08→19:57)
--- NOTE | 2021-09-30 05:15 | PC.NURSE ---
Resident pleasant and cooperative. T&R and pad change x2. VSS. Afebrile.
[2021-09-30] MEDS: ACETAMINOPHEN 500 MG TABLET 1000 MG PO ×3 (07:39→19:57)
[2021-09-30] MEDS: POTASSIUM CHLORIDE 10 MEQ CAPSULE ER PO (07:41)
[2021-09-30] MEDS: FLUOXETINE HCL 10 MG CAPSULE PO (07:42)
[2021-09-30] MEDS: SENNOSIDES/DOCUSATE TABLET 2 TAB PO ×2 (07:43→19:57)
--- NOTE | 2021-09-30 13:27 | PC.NURSE ---
Status-Awake and alert most of shift, was transferred into / without problem, sat in W/C for 1.5 hour then placed back into bed ate fair for lunch, fluids were encouraged, color pale, T-96.7, no congestion audible throat is slightly Hoarse PRN pain medication given for comfort.
[2021-09-30 21:35] VITALS: TEMP 35.9; O2SAT 92
--- NOTE | 2021-09-30 21:53 | PC.NURSE ---
Status: Was reported that resident was in a good mood this shift, had no trouble swallowing pills and, no covid symptoms.
[2021-10-01 01:19] VITALS: TEMP 36.4; O2SAT 92
[2021-10-01] MEDS: OXYCODONE 5 MG TABLET 2.5 MG PO ×5 (03:46→19:27)
--- NOTE | 2021-10-01 03:56 | PC.NURSE ---
Bruise-When having AM bed bath was noted to have a light green/yellow in color bruise starting from left great toe reaching to flat part of foot, on great toe measure's 4cm bottom of foot 6cm, resident unaware of bruise, heel protector's are on at all time's.
[2021-10-01 07:00] VITALS: TEMP 36.4; O2SAT 92
[2021-10-01] MEDS: ACETAMINOPHEN 500 MG TABLET 1000 MG PO ×3 (08:12→19:27)
[2021-10-01] MEDS: SENNOSIDES/DOCUSATE TABLET 2 TAB PO ×2 (08:13→19:27)
[2021-10-01] MEDS: POTASSIUM CHLORIDE 10 MEQ CAPSULE ER PO (08:13)
--- NOTE | 2021-10-01 13:18 | PC.NURSE ---
Status-Per 1-1 nurse ate 100% for both meals, color remains pale, has Occ's cough, Has been up in W/C x2 this shift, tolerated fair, becomes lethargic easily. T-97.4
[2021-10-01 15:00] VITALS: TEMP 36.2; O2SAT 94
--- NOTE | 2021-10-01 21:39 | PC.NURSE ---
A/O to self, afebrile, sat level 94% in RA, R 20, temp 97.1. Had 4 x loose BM, she was encouraged and given fluids for hydration. Reported to this shift nurses. Ate well during supper this evening and had clear ensure. Old bruise on the outer side of left great toe and old bruise on the outer lateral of varma area visible. Received all scheduled meds. Call light within reach. Right outer foot just below the 5th toe wound dressing changed after it was cleaned and dried using wound cleanser and gauze.
[2021-10-01 23:00] VITALS: TEMP 36.6; O2SAT 94
[2021-10-02] MEDS: OXYCODONE 5 MG TABLET 2.5 MG PO ×4 (04:05→19:03)
[2021-10-02 07:00] VITALS: TEMP 36.6; O2SAT 94
[2021-10-02] MEDS: POTASSIUM CHLORIDE 10 MEQ CAPSULE ER PO (07:02)
[2021-10-02] MEDS: FLUOXETINE HCL 10 MG CAPSULE PO (07:02)
[2021-10-02] MEDS: ACETAMINOPHEN 500 MG TABLET 1000 MG PO ×3 (07:02→18:58)
[2021-10-02] MEDS: SENNOSIDES/DOCUSATE TABLET 2 TAB PO ×2 (07:02→18:59)
--- NOTE | 2021-10-02 10:28 | PC.NURSE ---
Status-Afebrile, skin remains warm to the touch, color pale, appetite is good, talkative, up in W/C tolerated well.
[2021-10-02 15:00] VITALS: TEMP 37.1; O2SAT 96
[2021-10-02 23:00] VITALS: TEMP 36.6; O2SAT 95
[2021-10-03] MEDS: OXYCODONE 5 MG TABLET 2.5 MG PO ×4 (04:22→19:58)
[2021-10-03] MEDS: ACETAMINOPHEN 500 MG TABLET 1000 MG PO ×3 (07:03→19:58)
[2021-10-03] MEDS: POTASSIUM CHLORIDE 10 MEQ CAPSULE ER PO (07:03)
[2021-10-03] MEDS: SENNOSIDES/DOCUSATE TABLET 2 TAB PO ×2 (07:04→19:58)
[2021-10-03 09:57] VITALS: TEMP 37.1; O2SAT 94
--- NOTE | 2021-10-03 11:14 | PC.NURSE ---
Medications given to Carla Alvarado RN to administer
--- NOTE | 2021-10-03 11:24 | PC.NURSE ---
Medications given to Carla Alvarado RN to administer
[2021-10-03 16:41] VITALS: TEMP 36.7; O2SAT 94
--- NOTE | 2021-10-03 21:40 | PC.NURSE ---
Medication: Scheduled 20:00 meds given to Catarina Rose RN to administer.
[2021-10-03 23:00] VITALS: TEMP 36.8; O2SAT 95
[2021-10-04] MEDS: OXYCODONE 5 MG TABLET 2.5 MG PO ×5 (03:58→19:12)
[2021-10-04] MEDS: ACETAMINOPHEN 500 MG TABLET 1000 MG PO ×3 (07:32→19:10)
[2021-10-04] MEDS: SENNOSIDES/DOCUSATE TABLET 2 TAB PO ×2 (07:39→19:10)
[2021-10-04] MEDS: FLUOXETINE HCL 10 MG CAPSULE PO (07:39)
[2021-10-04] MEDS: POTASSIUM CHLORIDE 10 MEQ CAPSULE ER PO (07:39)
--- NOTE | 2021-10-04 15:15 | PC.SOCIAL ---
Resident's care conference was held today. Resident currently has COVID so did not attend, resident's daughter Imani attended via phone. Resident's mood has been stable no s/s of depression noted. Imani states that her father's anniversary of his will be this Sunday, which was 54 years ago. Daniella plans to send her mother zelaya that day. Resident's care plan was reviewed.
--- NOTE | 2021-10-04 19:10 | PC.NURSE ---
CARE CONFERENCE: Care conference meeting held with all departments today except activities. Resident present. Lisa daughter on the phone. Dietary advised that weights are stable. Resident does take a dietary supplement at lunch meal. At times resident able to feed self depending on strength for that meal. Nursing reviewed that resident continues to be total care with adls, transfers, and mobility. Care plan reviewed and updated. POLST reviewed. Uses no restraints. Does use half side rails to assist with positioning. Vulnerability- is at risk for being harmed due to fragility and mental status. Daughter declined to have medication list sent to her and said she receives the pharmacy bills. Discussed follow up appt after baclofen pump replaced per daughter requests. Will call the clinic for upcoming appt time.. Daughter updated on wound to right foot and that MIKO and no longer has tx set up. Daughter Lisa wants to make sure she is the only contact for patient medical needs. No questions/concerns at this time. No plans for discharge at this time.
--- NOTE | 2021-10-04 19:13 | PC.NURSE ---
Called [facility] for follow up appt on Baclofen pump replacement. The detailer school [employer] stated to call back later next week as resident is due for appt in December and that calendar is not open at this time.
[2021-10-04 21:28] VITALS: TEMP 36.3; O2SAT 96
[2021-10-04 23:00] VITALS: TEMP 36.9; O2SAT 91
[2021-10-05] MEDS: OXYCODONE 5 MG TABLET 2.5 MG PO ×5 (04:13→19:28)
[2021-10-05] MEDS: SENNOSIDES/DOCUSATE TABLET 2 TAB PO ×2 (07:08→19:28)
[2021-10-05] MEDS: POTASSIUM CHLORIDE 10 MEQ CAPSULE ER PO (07:08)
[2021-10-05] MEDS: ACETAMINOPHEN 500 MG TABLET 1000 MG PO ×3 (07:08→19:28)
--- NOTE | 2021-10-05 10:22 | PC.NURSE ---
Right ball of foot healed. No s/s infection. No drainage. Dry skin noted at the previous wound site. Staff to apply lotion daily. No further action required. AUXILIARY EQUIPMENT TENDER updated.
[2021-10-05 10:51] VITALS: BMI 30.1
[2021-10-05 11:08] VITALS: TEMP 36.6; O2SAT 98
--- NOTE | 2021-10-05 13:04 | PC.NURSE ---
Meds-1-1 covid nurse administered all medications without problem.
[2021-10-05 21:07] VITALS: TEMP 36.5; O2SAT 94
--- NOTE | 2021-10-05 21:50 | PC.NURSE ---
Medication: Resident's HS meds administered by Dixie Phillips RN @ 19:28.
[2021-10-05 23:00] VITALS: TEMP 36.6; O2SAT 95
[2021-10-06] MEDS: OXYCODONE 5 MG TABLET 2.5 MG PO ×5 (00:28→19:40)
[2021-10-06 07:00] VITALS: TEMP 36.4; O2SAT 95
[2021-10-06] MEDS: ACETAMINOPHEN 500 MG TABLET 1000 MG PO ×3 (07:06→19:40)
[2021-10-06] MEDS: SENNOSIDES/DOCUSATE TABLET 2 TAB PO ×2 (07:06→19:40)
[2021-10-06] MEDS: FLUOXETINE HCL 10 MG CAPSULE PO (07:06)
[2021-10-06] MEDS: POTASSIUM CHLORIDE 10 MEQ CAPSULE ER PO (07:06)
[2021-10-06 08:07] LABS: Chloride* 107 mmol/L (96-114); Potassium* 3.1 mmol/L (3.6-5.1); Sodium* 143 mmol/L (135-149)
[2021-10-06 08:10] LABS: Carbon Dioxide* 25 mmol/L (20-32); Creatinine* 0.4 mg/dL (0.5-1.5); Est. Creatinine Clearance* 40.21; Estimated Glomerular Filt Rate 103 ml/min
[2021-10-06 08:11] LABS: Blood Urea Nitrogen* 14 mg/dL (7-30); Calcium* 9.3 mg/dL (8.4-10.6); Glucose* 115 mg/dL (60-115)
--- NOTE | 2021-10-06 12:57 | PC.NURSE ---
Status-Up in W/C came out to DR for meal's ate fair, color remains poor, afebrile all shift.
--- NOTE | 2021-10-06 13:11 | REH.OT ---
OT: Hot beverage safety assessment: Pt to sit at table with covered mug with hot liquids due to physical deficits.
[2021-10-06 17:16] VITALS: TEMP 36.1; O2SAT 97
[2021-10-06 23:00] VITALS: TEMP 37.4; O2SAT 96
--- NOTE | 2021-10-07 02:11 | PC.NURSE ---
Week #3---care plan problems #30-39 reviewed. No changes made. Temporary care plan updated re: res. is now out of isolation. Continues to be incont. of B and B. Wears a large brief which is managed by staff. Is checked and changed on 1st and 3rd rounds. All pericare done by staff. Skin---Wound on right foot is now HEEL PACKER. Has a bruise on the left great toe and bottom of left foot that is being monitored daily.
[2021-10-07] MEDS: OXYCODONE 5 MG TABLET PO ×4 (04:21→19:05)
[2021-10-07] MEDS: ACETAMINOPHEN 500 MG TABLET 1000 MG PO ×3 (07:10→19:05)
[2021-10-07] MEDS: SENNOSIDES/DOCUSATE TABLET 2 TAB PO ×2 (07:10→19:05)
[2021-10-07] MEDS: POTASSIUM CHLORIDE 10 MEQ CAPSULE ER PO (07:10)
[2021-10-07 10:13] VITALS: BP 135/77; PULSE 68; RESP 18; TEMP 36.1; O2SAT 96
[2021-10-07 13:24] VITALS: TEMP 36.1; O2SAT 96
[2021-10-07 17:17] VITALS: TEMP 36.4; O2SAT 96
[2021-10-07 23:00] VITALS: TEMP 36.6; O2SAT 93
[2021-10-08] MEDS: OXYCODONE 5 MG TABLET PO ×5 (04:10→19:50)
[2021-10-08] MEDS: ACETAMINOPHEN 500 MG TABLET 1000 MG PO ×3 (07:41→19:50)
[2021-10-08] MEDS: SENNOSIDES/DOCUSATE TABLET 2 TAB PO ×2 (07:42→19:50)
[2021-10-08] MEDS: FLUOXETINE HCL 10 MG CAPSULE PO (07:42)
[2021-10-08] MEDS: POTASSIUM CHLORIDE 10 MEQ CAPSULE ER PO (07:42)
[2021-10-08 10:31] VITALS: TEMP 36.6; O2SAT 92
--- NOTE | 2021-10-08 12:41 | PC.NURSE ---
Week #3: Vital signs reviewed with no issues Wound on right foot now open to air. Does have bruise on left great toe and bottom of left foot Temporary care plan reviewed with no changes Care plan problems #30-39 reviewed with no changes Resident is incontinent of both bowel and bladder
[2021-10-08 16:28] VITALS: TEMP 36.8; O2SAT 98
[2021-10-08 23:00] VITALS: TEMP 36.7; O2SAT 96
[2021-10-09] MEDS: OXYCODONE 5 MG TABLET PO ×4 (04:10→19:21)
[2021-10-09] MEDS: POTASSIUM CHLORIDE 10 MEQ CAPSULE ER PO (07:05)
[2021-10-09] MEDS: ACETAMINOPHEN 500 MG TABLET 1000 MG PO ×3 (07:05→19:19)
[2021-10-09] MEDS: SENNOSIDES/DOCUSATE TABLET 2 TAB PO ×2 (07:06→19:19)
[2021-10-09] MEDS: FLUOXETINE HCL 10 MG CAPSULE PO (08:11)
[2021-10-09 12:38] VITALS: TEMP 36.6; O2SAT 96
[2021-10-09 20:31] VITALS: TEMP 36.7; O2SAT 96
--- NOTE | 2021-10-09 20:35 | PC.NURSE ---
Bruise: 3 small bruises noted on left varma; 5x7cm, 4x6cm, 3x3cm. Unknown origin, have begun to yellow. Intervention started, monitor until healed.
[2021-10-09 23:00] VITALS: TEMP 36.2; O2SAT 94
[2021-10-10] MEDS: OXYCODONE 5 MG TABLET PO ×5 (04:41→19:44)
[2021-10-10 07:00] VITALS: TEMP 36.8; O2SAT 96
[2021-10-10] MEDS: POTASSIUM CHLORIDE 10 MEQ CAPSULE ER PO (07:09)
[2021-10-10] MEDS: ACETAMINOPHEN 500 MG TABLET 1000 MG PO ×3 (07:09→19:44)
[2021-10-10] MEDS: FLUOXETINE HCL 10 MG CAPSULE PO (07:09)
[2021-10-10] MEDS: SENNOSIDES/DOCUSATE TABLET 2 TAB PO ×2 (07:09→19:44)
[2021-10-10 21:13] VITALS: TEMP 36.1; O2SAT 99
[2021-10-10 23:00] VITALS: TEMP 36.6; O2SAT 97
[2021-10-11] MEDS: OXYCODONE 5 MG TABLET PO ×4 (04:08→19:50)
[2021-10-11 07:00] VITALS: BMI 30.2
[2021-10-11] MEDS: ACETAMINOPHEN 500 MG TABLET 1000 MG PO ×3 (08:09→19:50)
[2021-10-11] MEDS: POTASSIUM CHLORIDE 10 MEQ CAPSULE ER PO (08:10)
[2021-10-11] MEDS: SENNOSIDES/DOCUSATE TABLET 2 TAB PO ×2 (08:10→19:50)
[2021-10-11] MEDS: FLUOXETINE HCL 10 MG CAPSULE PO (08:10)
--- NOTE | 2021-10-11 11:30 | PC.NURSE ---
WOUND right outer foot: Healed. Staff to apply lotion to bilateral feet with am/pm cares. With lotion application staff to monitor for any open areas or worsen in right outer foot newly healed skin.
[2021-10-11 15:00] VITALS: TEMP 37; O2SAT 95
[2021-10-11 23:00] VITALS: TEMP 36.1; O2SAT 96
[2021-10-12] MEDS: OXYCODONE 5 MG TABLET PO ×4 (04:15→19:06)
[2021-10-12 07:00] VITALS: TEMP 36.9; O2SAT 97
[2021-10-12] MEDS: FLUOXETINE HCL 10 MG CAPSULE PO (07:04)
[2021-10-12] MEDS: ACETAMINOPHEN 500 MG TABLET 1000 MG PO ×3 (07:04→19:06)
[2021-10-12] MEDS: POTASSIUM CHLORIDE 10 MEQ CAPSULE ER PO (07:04)
[2021-10-12] MEDS: SENNOSIDES/DOCUSATE TABLET 2 TAB PO ×2 (07:05→19:06)
[2021-10-12 15:00] VITALS: TEMP 36.7; O2SAT 98
[2021-10-12 23:00] VITALS: TEMP 35.9; O2SAT 97
[2021-10-13] MEDS: OXYCODONE 5 MG TABLET PO ×4 (04:17→19:12)
[2021-10-13] MEDS: ACETAMINOPHEN 500 MG TABLET 1000 MG PO ×3 (07:08→19:12)
[2021-10-13] MEDS: SENNOSIDES/DOCUSATE TABLET 2 TAB PO ×2 (07:09→19:12)
[2021-10-13] MEDS: FLUOXETINE HCL 10 MG CAPSULE PO (07:09)
[2021-10-13] MEDS: POTASSIUM CHLORIDE 10 MEQ CAPSULE ER PO (07:09)
--- NOTE | 2021-10-13 08:39 | PC.SPIRITC ---
Late Entry for 10/12/2021 provided visit for connection and support while taking Marshall for a walk outdoors.
[2021-10-13 09:49] VITALS: TEMP 36.3; O2SAT 96
[2021-10-13 15:00] VITALS: TEMP 36.6; O2SAT 98
[2021-10-13 23:00] VITALS: TEMP 36.3; O2SAT 99
--- NOTE | 2021-10-14 03:34 | PC.NURSE ---
Week #4---care plan problems #40+ reviewed. No changes made. Nothing added to temporary care plan. Rarely uses call light. Mostly needs are anticipated by staff. No changes noted in hearing, vision, or orientation. No behavior problems at noc this past month. Sleeps well most nocs. Continues to receive Prozac 10 mg qd with no adverse effects noted.
[2021-10-14] MEDS: OXYCODONE 5 MG TABLET PO ×4 (04:23→19:11)
[2021-10-14 07:00] VITALS: TEMP 37; O2SAT 96
[2021-10-14] MEDS: ACETAMINOPHEN 500 MG TABLET 1000 MG PO ×3 (07:10→19:11)
[2021-10-14] MEDS: POTASSIUM CHLORIDE 10 MEQ CAPSULE ER PO (07:10)
[2021-10-14] MEDS: FLUOXETINE HCL 10 MG CAPSULE PO (07:11)
[2021-10-14] MEDS: SENNOSIDES/DOCUSATE TABLET 2 TAB PO ×2 (07:11→19:11)
--- NOTE | 2021-10-14 11:15 | PC.NURSE ---
PAXIL ORDER: was placed in error. Resident only takes Prozac, which has been administered per order. Paxil was never ordered, confirmed by Maggie Grayson NP, or received from pharmacy.
[2021-10-14 17:48] VITALS: TEMP 36.6; O2SAT 95
[2021-10-14 23:00] VITALS: TEMP 36.1; O2SAT 95
[2021-10-15] MEDS: OXYCODONE 5 MG TABLET PO ×5 (03:32→19:24)
[2021-10-15 07:00] VITALS: TEMP 36.7; O2SAT 97
[2021-10-15] MEDS: ACETAMINOPHEN 500 MG TABLET 1000 MG PO ×3 (07:28→19:24)
[2021-10-15] MEDS: POTASSIUM CHLORIDE 10 MEQ CAPSULE ER PO (07:29)
[2021-10-15] MEDS: SENNOSIDES/DOCUSATE TABLET 2 TAB PO ×2 (07:29→19:24)
[2021-10-15] MEDS: FLUOXETINE HCL 10 MG CAPSULE PO (07:29)
[2021-10-15 21:05] VITALS: TEMP 35.9; O2SAT 98
[2021-10-16 00:31] VITALS: TEMP 36.2; O2SAT 97
[2021-10-16] MEDS: OXYCODONE 5 MG TABLET PO ×5 (03:45→19:30)
[2021-10-16 07:00] VITALS: TEMP 36.5; O2SAT 98
[2021-10-16] MEDS: SENNOSIDES/DOCUSATE TABLET 2 TAB PO ×2 (07:24→19:30)
[2021-10-16] MEDS: FLUOXETINE HCL 10 MG CAPSULE PO (07:24)
[2021-10-16] MEDS: ACETAMINOPHEN 500 MG TABLET 1000 MG PO ×3 (07:24→19:30)
[2021-10-16] MEDS: POTASSIUM CHLORIDE 10 MEQ CAPSULE ER PO (07:24)
[2021-10-16 21:52] VITALS: TEMP 35.7; O2SAT 97
[2021-10-16 23:00] VITALS: TEMP 35.8; O2SAT 100
[2021-10-17] MEDS: OXYCODONE 5 MG TABLET PO ×4 (04:04→19:50)
[2021-10-17] MEDS: POTASSIUM CHLORIDE 10 MEQ CAPSULE ER PO (07:30)
[2021-10-17] MEDS: FLUOXETINE HCL 10 MG CAPSULE PO (07:30)
[2021-10-17] MEDS: ACETAMINOPHEN 500 MG TABLET 1000 MG PO ×3 (07:30→19:50)
[2021-10-17] MEDS: SENNOSIDES/DOCUSATE TABLET 2 TAB PO ×2 (07:31→19:50)
[2021-10-17 10:37] VITALS: TEMP 36.5; O2SAT 97
[2021-10-17 21:12] VITALS: TEMP 36.2; O2SAT 99
[2021-10-17 23:00] VITALS: TEMP 36.1; O2SAT 97
[2021-10-18] MEDS: OXYCODONE 5 MG TABLET PO ×4 (04:06→19:03)
[2021-10-18 07:00] VITALS: TEMP 36.8; O2SAT 96; BMI 29.9
[2021-10-18] MEDS: ACETAMINOPHEN 500 MG TABLET 1000 MG PO ×3 (07:14→19:03)
[2021-10-18] MEDS: SENNOSIDES/DOCUSATE TABLET 2 TAB PO ×2 (07:14→19:03)
[2021-10-18] MEDS: FLUOXETINE HCL 10 MG CAPSULE PO (07:14)
[2021-10-18] MEDS: POTASSIUM CHLORIDE 10 MEQ CAPSULE ER PO (07:14)
[2021-10-18 15:00] VITALS: TEMP 36.6; O2SAT 99
[2021-10-18 23:00] VITALS: TEMP 36.2; O2SAT 96
[2021-10-19] MEDS: OXYCODONE 5 MG TABLET PO ×4 (04:19→19:13)
[2021-10-19 07:00] VITALS: TEMP 36.4; O2SAT 95
[2021-10-19] MEDS: ACETAMINOPHEN 500 MG TABLET 1000 MG PO ×3 (07:38→19:13)
[2021-10-19] MEDS: FLUOXETINE HCL 10 MG CAPSULE PO (07:39)
[2021-10-19] MEDS: SENNOSIDES/DOCUSATE TABLET 2 TAB PO ×2 (07:39→19:13)
[2021-10-19] MEDS: POTASSIUM CHLORIDE 10 MEQ CAPSULE ER PO (07:39)
[2021-10-19 15:00] VITALS: TEMP 36.6; O2SAT 99
[2021-10-19 23:00] VITALS: TEMP 36.4; O2SAT 94
[2021-10-20] MEDS: OXYCODONE 5 MG TABLET PO ×4 (03:37→19:30)
[2021-10-20] MEDS: ACETAMINOPHEN 500 MG TABLET 1000 MG PO ×3 (07:03→19:30)
[2021-10-20] MEDS: SENNOSIDES/DOCUSATE TABLET 2 TAB PO ×2 (07:03→19:30)
[2021-10-20] MEDS: FLUOXETINE HCL 10 MG CAPSULE PO (07:03)
[2021-10-20] MEDS: POTASSIUM CHLORIDE 10 MEQ CAPSULE ER PO (07:03)
[2021-10-20 21:55] VITALS: TEMP 36.9; O2SAT 96
[2021-10-20 23:00] VITALS: TEMP 36.6; O2SAT 95
[2021-10-21] MEDS: OXYCODONE 5 MG TABLET PO ×4 (04:15→19:02)
[2021-10-21] MEDS: SENNOSIDES/DOCUSATE TABLET 2 TAB PO ×2 (07:03→19:02)
[2021-10-21] MEDS: ACETAMINOPHEN 500 MG TABLET 1000 MG PO ×3 (07:03→19:02)
[2021-10-21] MEDS: POTASSIUM CHLORIDE 10 MEQ CAPSULE ER PO (07:03)
[2021-10-21] MEDS: FLUOXETINE HCL 10 MG CAPSULE PO (07:03)
[2021-10-21 10:36] VITALS: BP 173/75; PULSE 65; RESP 18; TEMP 36.4; O2SAT 96
[2021-10-21 16:00] VITALS: TEMP 36.3; O2SAT 98
[2021-10-22] MEDS: OXYCODONE 5 MG TABLET PO ×4 (04:13→19:23)
[2021-10-22] MEDS: ACETAMINOPHEN 500 MG TABLET 1000 MG PO ×3 (07:13→19:23)
[2021-10-22] MEDS: POTASSIUM CHLORIDE 10 MEQ CAPSULE ER PO (07:13)
[2021-10-22] MEDS: FLUOXETINE HCL 10 MG CAPSULE PO (07:13)
[2021-10-22] MEDS: SENNOSIDES/DOCUSATE TABLET 2 TAB PO ×2 (07:13→19:23)
[2021-10-22 16:07] VITALS: TEMP 36.6; O2SAT 96
[2021-10-23] MEDS: OXYCODONE 5 MG TABLET PO ×4 (04:07→19:58)
[2021-10-23] MEDS: POTASSIUM CHLORIDE 10 MEQ CAPSULE ER PO (07:07)
[2021-10-23] MEDS: FLUOXETINE HCL 10 MG CAPSULE PO (07:07)
[2021-10-23] MEDS: SENNOSIDES/DOCUSATE TABLET 2 TAB PO ×2 (07:07→19:58)
[2021-10-23] MEDS: ACETAMINOPHEN 500 MG TABLET 1000 MG PO ×3 (07:07→19:58)
[2021-10-23 16:00] VITALS: TEMP 36.1; O2SAT 97
[2021-10-24] MEDS: OXYCODONE 5 MG TABLET PO ×4 (04:30→19:11)
[2021-10-24] MEDS: FLUOXETINE HCL 10 MG CAPSULE PO (07:18)
[2021-10-24] MEDS: ACETAMINOPHEN 500 MG TABLET 1000 MG PO ×3 (07:18→19:11)
[2021-10-24] MEDS: SENNOSIDES/DOCUSATE TABLET 2 TAB PO ×2 (07:18→19:11)
[2021-10-24] MEDS: POTASSIUM CHLORIDE 10 MEQ CAPSULE ER PO (07:18)
[2021-10-24 16:42] VITALS: TEMP 36.3; O2SAT 98
[2021-10-25] MEDS: OXYCODONE 5 MG TABLET PO ×4 (04:13→19:28)
[2021-10-25 07:00] VITALS: BMI 29.5
[2021-10-25] MEDS: ACETAMINOPHEN 500 MG TABLET 1000 MG PO ×3 (07:02→19:28)
[2021-10-25] MEDS: POTASSIUM CHLORIDE 10 MEQ CAPSULE ER PO (07:03)
[2021-10-25] MEDS: FLUOXETINE HCL 10 MG CAPSULE PO (07:03)
[2021-10-25] MEDS: SENNOSIDES/DOCUSATE TABLET 2 TAB PO ×2 (07:03→19:28)
--- NOTE | 2021-10-25 11:52 | PC.NURSE ---
Addendum entered by Amy Renteria LPN 10/26/21 01:18: Also ordered a BMP for 10/27/21. Original Note: Recert Visit: Resident seen by Renuka STEARNS. Orders reviewed and renewed of 75 days without changes.
--- NOTE | 2021-10-25 13:03 | PC.NURSE ---
Skin-Bruise on left foot has resolved, will D/C charting
[2021-10-25 20:23] VITALS: TEMP 36.4; O2SAT 95
[2021-10-26] MEDS: OXYCODONE 5 MG TABLET PO ×4 (04:14→19:22)
[2021-10-26] MEDS: ACETAMINOPHEN 500 MG TABLET 1000 MG PO ×3 (07:08→19:22)
[2021-10-26] MEDS: POTASSIUM CHLORIDE 10 MEQ CAPSULE ER PO (07:09)
[2021-10-26] MEDS: FLUOXETINE HCL 10 MG CAPSULE PO (07:09)
[2021-10-26] MEDS: SENNOSIDES/DOCUSATE TABLET 2 TAB PO ×2 (07:09→19:22)
--- NOTE | 2021-10-26 12:05 | PC.PHA ---
Pharmacy Review ~ Fluoxetine 10 mg daily for depression continues and is low dose. Paxlovid regimen in September for Covid-19. No changes to pain med/MS med regimens.
[2021-10-26 16:00] VITALS: TEMP 36.1; O2SAT 100
[2021-10-27] MEDS: OXYCODONE 5 MG TABLET PO ×4 (04:14→19:48)
[2021-10-27] MEDS: POTASSIUM CHLORIDE 10 MEQ CAPSULE ER PO (07:07)
[2021-10-27] MEDS: ACETAMINOPHEN 500 MG TABLET 1000 MG PO ×3 (07:07→19:48)
[2021-10-27] MEDS: SENNOSIDES/DOCUSATE TABLET 2 TAB PO ×2 (07:08→19:48)
[2021-10-27] MEDS: FLUOXETINE HCL 10 MG CAPSULE PO (07:08)
[2021-10-27 08:16] LABS: Chloride* 107 mmol/L (96-114); Sodium* 142 mmol/L (135-149)
[2021-10-27 08:19] LABS: Creatinine* 0.4 mg/dL (0.5-1.5); Est. Creatinine Clearance* 40.21; Estimated Glomerular Filt Rate 103 ml/min
[2021-10-27 08:20] LABS: Blood Urea Nitrogen* 20 mg/dL (7-30); Calcium* 9.2 mg/dL (8.4-10.6); Carbon Dioxide* 24 mmol/L (20-32); Glucose* 91 mg/dL (60-115)
--- NOTE | 2021-10-27 11:41 | PC.NURSE ---
Lab/Order: BMP result reviewed by Renuka STEARNS. Order: Check BMP on 11/24/21, Change Potassium Chloride 10meq to QOD.
[2021-10-27 15:52] VITALS: TEMP 36; O2SAT 98
[2021-10-27 21:28] VITALS: TEMP 36; O2SAT 98
--- NOTE | 2021-10-28 01:58 | PC.NURSE ---
Week #1---care plan problems #1-19 reviewed. No changes made. Temporary care plan updated re: has recovered from Covid 19. Continues to drink good amts. of water during the noc. Staff hold the covered mug or glass while she drinks thru a straw. Pain---no c/o's pain at noc this past month. Continues to receive Tylenol 1000 mg tid and Oxycodone 5 mg qid and q4h prn.
[2021-10-28] MEDS: OXYCODONE 5 MG TABLET PO ×4 (04:09→20:40)
[2021-10-28] MEDS: FLUOXETINE HCL 10 MG CAPSULE PO (07:27)
[2021-10-28] MEDS: ACETAMINOPHEN 500 MG TABLET 1000 MG PO ×3 (07:27→20:40)
[2021-10-28] MEDS: SENNOSIDES/DOCUSATE TABLET 2 TAB PO ×2 (07:27→20:40)
[2021-10-28 10:00] VITALS: BP 150/78; PULSE 71; RESP 18; TEMP 36; O2SAT 98
--- NOTE | 2021-10-28 18:55 | PC.NURSE ---
Week 1: Vital signs within normal limits. Pain summary: Resident has complained of pain on the PM shift twice in the last month. Is on Tylenol 1000mg TID, Oxycodone 5mg QID and PRN Q4H. Temporary care plan reviewed, no change. Care plan 1-19 reviewed no change. Grooming: Resident needs total assist for all ADL's Nutrition: Resident can feed self after a set up. Does get ensure once a day.
[2021-10-28 21:17] VITALS: TEMP 36.2; O2SAT 97
[2021-10-29] MEDS: OXYCODONE 5 MG TABLET PO ×4 (05:04→19:36)
[2021-10-29] MEDS: ACETAMINOPHEN 500 MG TABLET 1000 MG PO ×3 (08:10→19:36)
[2021-10-29] MEDS: FLUOXETINE HCL 10 MG CAPSULE PO (08:10)
[2021-10-29] MEDS: SENNOSIDES/DOCUSATE TABLET 2 TAB PO ×2 (08:11→19:36)
[2021-10-29] MEDS: POTASSIUM CHLORIDE 10 MEQ CAPSULE ER PO (08:11)
[2021-10-29 17:26] VITALS: BP 151/54; PULSE 63; RESP 16; TEMP 36; O2SAT 96
[2021-10-29 21:09] VITALS: TEMP 36; O2SAT 96
[2021-10-30] MEDS: OXYCODONE 5 MG TABLET PO ×4 (04:24→19:29)
[2021-10-30] MEDS: ACETAMINOPHEN 500 MG TABLET 1000 MG PO ×3 (07:20→19:28)
[2021-10-30] MEDS: SENNOSIDES/DOCUSATE TABLET 2 TAB PO ×2 (07:21→19:29)
[2021-10-30] MEDS: FLUOXETINE HCL 10 MG CAPSULE PO (07:21)
[2021-10-30 21:34] VITALS: TEMP 35.9; O2SAT 96
[2021-10-31] MEDS: OXYCODONE 5 MG TABLET PO ×4 (04:55→19:34)
[2021-10-31] MEDS: POTASSIUM CHLORIDE 10 MEQ CAPSULE ER PO (07:05)
[2021-10-31] MEDS: SENNOSIDES/DOCUSATE TABLET 2 TAB PO ×2 (07:05→19:34)
[2021-10-31] MEDS: FLUOXETINE HCL 10 MG CAPSULE PO (07:05)
[2021-10-31] MEDS: ACETAMINOPHEN 500 MG TABLET 1000 MG PO ×3 (07:05→19:34)
[2021-10-31 16:43] VITALS: TEMP 36.2; O2SAT 96
[2021-11-01] MEDS: OXYCODONE 5 MG TABLET PO ×4 (04:12→19:07)
[2021-11-01] MEDS: ACETAMINOPHEN 500 MG TABLET 1000 MG PO ×3 (07:41→19:07)
[2021-11-01] MEDS: SENNOSIDES/DOCUSATE TABLET 2 TAB PO ×2 (07:41→19:07)
[2021-11-01] MEDS: FLUOXETINE HCL 10 MG CAPSULE PO (07:41)
[2021-11-01 14:34] VITALS: BMI 30.1
[2021-11-01 16:00] VITALS: TEMP 36.8; O2SAT 96
[2021-11-02] MEDS: OXYCODONE 5 MG TABLET PO ×4 (04:14→20:02)
[2021-11-02] MEDS: SENNOSIDES/DOCUSATE TABLET 2 TAB PO ×2 (07:14→20:02)
[2021-11-02] MEDS: FLUOXETINE HCL 10 MG CAPSULE PO (07:14)
[2021-11-02] MEDS: ACETAMINOPHEN 500 MG TABLET 1000 MG PO ×3 (07:14→20:02)
[2021-11-02] MEDS: POTASSIUM CHLORIDE 10 MEQ CAPSULE ER PO (07:14)
[2021-11-02 16:00] VITALS: TEMP 36.3; O2SAT 99
--- NOTE | 2021-11-02 16:46 | PC.SPIRITC ---
provided visit for connection, support, and took Marshall outside for a walk.
[2021-11-03] MEDS: OXYCODONE 5 MG TABLET PO ×4 (04:02→19:25)
[2021-11-03] MEDS: SENNOSIDES/DOCUSATE TABLET 2 TAB PO ×2 (07:00→19:25)
[2021-11-03] MEDS: ACETAMINOPHEN 500 MG TABLET 1000 MG PO ×3 (07:00→19:25)
[2021-11-03] MEDS: FLUOXETINE HCL 10 MG CAPSULE PO (07:00)
[2021-11-03 16:00] VITALS: TEMP 36.8; O2SAT 97
--- NOTE | 2021-11-04 01:44 | PC.NURSE ---
Week #2---care plan problems #20-29 reviewed. No changes made. Nothing added to temporary care plan. [facility] Is repositioned from side to side on 1st and 3rd rounds. Positioned with pillows behind her back, under her legs, and between her legs. Heel protectors on. Air mattress on bed. Top siderails up. Falls---no falls this past month. Remains a low fall risk according to assessment done on 04/21/21.
[2021-11-04] MEDS: OXYCODONE 5 MG TABLET PO ×4 (04:09→19:12)
--- NOTE | 2021-11-04 07:10 | PC.NURSE ---
Week #2: Care plan problems - and temporary care plan reviewed. No changes made. Nothing added to temporary care plan. Resident is non ambulatory. Needs total assistance with mobility. Transfers with a margo lift, 2 assists. 1-2 assists with repositioning in bed. T & R, offload every 2 hours. Has a tilt in space wheelchair. Staff wheel to all destinations. Staff to do gentle ROM to upper & lower extremity during cares and dressing. No alarms. Fall: No falls this past month. Is a high fall risk according to assessment done on 10/06/21.
[2021-11-04] MEDS: ACETAMINOPHEN 500 MG TABLET 1000 MG PO ×3 (07:33→19:09)
[2021-11-04] MEDS: FLUOXETINE HCL 10 MG CAPSULE PO (07:34)
[2021-11-04] MEDS: POTASSIUM CHLORIDE 10 MEQ CAPSULE ER PO (07:34)
[2021-11-04] MEDS: SENNOSIDES/DOCUSATE TABLET 2 TAB PO ×2 (07:37→19:13)
[2021-11-04 12:53] VITALS: BP 132/72; PULSE 67; RESP 18; TEMP 36.1; O2SAT 98
[2021-11-04 16:00] VITALS: TEMP 36.4; O2SAT 98
[2021-11-05] MEDS: OXYCODONE 5 MG TABLET PO ×4 (04:22→19:14)
[2021-11-05] MEDS: ACETAMINOPHEN 500 MG TABLET 1000 MG PO ×3 (07:08→19:14)
[2021-11-05] MEDS: SENNOSIDES/DOCUSATE TABLET 2 TAB PO ×2 (07:08→19:14)
[2021-11-05] MEDS: FLUOXETINE HCL 10 MG CAPSULE PO (07:08)
[2021-11-05 17:00] VITALS: TEMP 36.3; O2SAT 97
[2021-11-06] MEDS: OXYCODONE 5 MG TABLET PO ×4 (04:05→19:01)
[2021-11-06] MEDS: ACETAMINOPHEN 500 MG TABLET 1000 MG PO ×3 (07:09→19:01)
[2021-11-06] MEDS: FLUOXETINE HCL 10 MG CAPSULE PO (07:10)
[2021-11-06] MEDS: SENNOSIDES/DOCUSATE TABLET 2 TAB PO ×2 (07:10→19:01)
[2021-11-06] MEDS: POTASSIUM CHLORIDE 10 MEQ CAPSULE ER PO (07:10)
[2021-11-06 16:24] VITALS: TEMP 36.2; O2SAT 99
[2021-11-07] MEDS: OXYCODONE 5 MG TABLET PO ×4 (04:22→19:44)
[2021-11-07] MEDS: ACETAMINOPHEN 500 MG TABLET 1000 MG PO ×3 (07:06→19:44)
[2021-11-07] MEDS: SENNOSIDES/DOCUSATE TABLET 2 TAB PO ×2 (07:06→19:44)
[2021-11-07] MEDS: FLUOXETINE HCL 10 MG CAPSULE PO (07:06)
[2021-11-07 22:22] VITALS: TEMP 36.4; O2SAT 98
[2021-11-08] MEDS: OXYCODONE 5 MG TABLET PO ×4 (05:07→19:20)
[2021-11-08 07:00] VITALS: BMI 30.2
[2021-11-08] MEDS: POTASSIUM CHLORIDE 10 MEQ CAPSULE ER PO (08:16)
[2021-11-08] MEDS: FLUOXETINE HCL 10 MG CAPSULE PO (08:16)
[2021-11-08] MEDS: ACETAMINOPHEN 500 MG TABLET 1000 MG PO ×3 (08:16→19:20)
[2021-11-08] MEDS: SENNOSIDES/DOCUSATE TABLET 2 TAB PO ×2 (08:16→19:20)
[2021-11-08 14:50] VITALS: TEMP 36.7; O2SAT 97
[2021-11-09 02:04] VITALS: TEMP 36.6; O2SAT 96
[2021-11-09] MEDS: OXYCODONE 5 MG TABLET PO ×4 (04:01→19:45)
[2021-11-09] MEDS: FLUOXETINE HCL 10 MG CAPSULE PO (07:15)
[2021-11-09] MEDS: ACETAMINOPHEN 500 MG TABLET 1000 MG PO ×3 (07:15→19:45)
[2021-11-09] MEDS: SENNOSIDES/DOCUSATE TABLET 2 TAB PO ×2 (07:15→19:45)
[2021-11-09 10:53] VITALS: TEMP 36.2; O2SAT 98
--- NOTE | 2021-11-09 14:40 | PC.PHA ---
Pharmacy Review ~ Patient had adjustment to pain med regimen, increasing scheduled oxycodone dose from 2.5 mg to 5 mg in September. current order for as needed oxycodone last administered 10/16/21. Other medications for MS and mood continue and patient has been stable on this regimen.
[2021-11-09 15:00] VITALS: TEMP 36.3; O2SAT 99
--- NOTE | 2021-11-09 16:02 | PC.SPIRITC ---
provided time after nat for Marshall to listen to hymns.
[2021-11-10 03:31] VITALS: TEMP 36.2; O2SAT 97
[2021-11-10] MEDS: OXYCODONE 5 MG TABLET PO ×4 (04:27→20:53)
[2021-11-10] MEDS: FLUOXETINE HCL 10 MG CAPSULE PO (07:14)
[2021-11-10] MEDS: ACETAMINOPHEN 500 MG TABLET 1000 MG PO ×3 (07:14→20:53)
[2021-11-10] MEDS: SENNOSIDES/DOCUSATE TABLET 2 TAB PO ×2 (07:14→20:53)
[2021-11-10] MEDS: POTASSIUM CHLORIDE 10 MEQ CAPSULE ER PO (07:14)
--- NOTE | 2021-11-10 09:46 | PC.NURSE ---
COVID OUTBREAK TESTING: Resident was excluded from testing d/t recent COVID+ status. Testing will resume after 90 days from positive test result.
[2021-11-10 09:48] VITALS: TEMP 36.3; O2SAT 93
[2021-11-10 15:00] VITALS: TEMP 36.1; O2SAT 99
--- NOTE | 2021-11-11 03:38 | PC.NURSE ---
Week #3: Skin summary: no skin issues at this time. Temporary care plan reviewed, no change. Care plan 30-39 reviewed, no change. Bathroom: Resident is incontinent of bowel and bladder, is checked/changed in bed. Uses brief.
[2021-11-11 04:09] VITALS: TEMP 36.3; O2SAT 96
[2021-11-11] MEDS: OXYCODONE 5 MG TABLET PO ×4 (04:10→19:56)
--- NOTE | 2021-11-11 07:16 | PC.NURSE ---
Week #3: Care plan problems 30-39 and temporary care plan reviewed. No changes made. Nothing added to temporary care plan.Resident is incontinent of bowel and bladder. Is check & change in bed Q2H & PRN. Requires 1-2 assists to manage pads, enriqueta cares, and clothing. Skin: No issues at this time. Skin is checked during cares and on bath day.
[2021-11-11] MEDS: SENNOSIDES/DOCUSATE TABLET 2 TAB PO ×2 (07:22→19:57)
[2021-11-11] MEDS: FLUOXETINE HCL 10 MG CAPSULE PO (07:22)
[2021-11-11] MEDS: ACETAMINOPHEN 500 MG TABLET 1000 MG PO ×3 (07:22→19:56)
[2021-11-11 10:49] VITALS: TEMP 36; O2SAT 99
[2021-11-11 10:50] VITALS: BP 131/64; PULSE 62; RESP 16; TEMP 36; O2SAT 99
[2021-11-11 15:00] VITALS: TEMP 36.9; O2SAT 95
[2021-11-12 01:09] VITALS: TEMP 36.3; O2SAT 95
[2021-11-12] MEDS: OXYCODONE 5 MG TABLET PO ×4 (04:11→19:09)
[2021-11-12] MEDS: ACETAMINOPHEN 500 MG TABLET 1000 MG PO ×3 (07:54→19:09)
[2021-11-12] MEDS: FLUOXETINE HCL 10 MG CAPSULE PO (07:54)
[2021-11-12] MEDS: SENNOSIDES/DOCUSATE TABLET 2 TAB PO ×2 (07:54→19:09)
[2021-11-12] MEDS: POTASSIUM CHLORIDE 10 MEQ CAPSULE ER PO (07:54)
[2021-11-12 10:08] VITALS: TEMP 35.8; O2SAT 97
[2021-11-12 15:00] VITALS: TEMP 36.9; O2SAT 94
[2021-11-13 02:04] VITALS: TEMP 36.4; O2SAT 95
[2021-11-13] MEDS: OXYCODONE 5 MG TABLET PO ×4 (04:25→19:56)
[2021-11-13] MEDS: ACETAMINOPHEN 500 MG TABLET 1000 MG PO ×3 (07:34→19:55)
[2021-11-13] MEDS: FLUOXETINE HCL 10 MG CAPSULE PO (07:34)
[2021-11-13] MEDS: SENNOSIDES/DOCUSATE TABLET 2 TAB PO ×2 (07:35→19:55)
[2021-11-13 10:07] VITALS: TEMP 36.3; O2SAT 96
[2021-11-13 21:47] VITALS: TEMP 36.6; O2SAT 92
[2021-11-13 23:00] VITALS: TEMP 36.6; O2SAT 95
[2021-11-14] MEDS: OXYCODONE 5 MG TABLET PO ×4 (04:45→20:11)
[2021-11-14] MEDS: SENNOSIDES/DOCUSATE TABLET 2 TAB PO ×2 (07:19→20:10)
[2021-11-14] MEDS: POTASSIUM CHLORIDE 10 MEQ CAPSULE ER PO (07:19)
[2021-11-14] MEDS: ACETAMINOPHEN 500 MG TABLET 1000 MG PO ×3 (07:19→20:10)
[2021-11-14] MEDS: FLUOXETINE HCL 10 MG CAPSULE PO (07:19)
[2021-11-14 10:14] VITALS: TEMP 36.2; O2SAT 98
--- NOTE | 2021-11-14 10:50 | PC.NURSE ---
COVID OUTBREAK TESTING: Resident was excluded from testing d/t recent COVID+ status. Testing will resume after 90 days from positive test result.
[2021-11-14 21:57] VITALS: TEMP 36.4; O2SAT 97
[2021-11-15 04:06] VITALS: TEMP 36.3; O2SAT 94
[2021-11-15] MEDS: OXYCODONE 5 MG TABLET PO ×4 (04:15→19:14)
[2021-11-15] MEDS: ACETAMINOPHEN 500 MG TABLET 1000 MG PO ×3 (07:11→19:14)
[2021-11-15] MEDS: SENNOSIDES/DOCUSATE TABLET 2 TAB PO ×2 (07:12→19:14)
[2021-11-15] MEDS: FLUOXETINE HCL 10 MG CAPSULE PO (07:12)
[2021-11-15 13:48] VITALS: TEMP 36; O2SAT 99
[2021-11-15 13:50] VITALS: BMI 30.2
[2021-11-15 15:14] VITALS: TEMP 36.4; O2SAT 98
[2021-11-16 03:49] VITALS: TEMP 36.3; O2SAT 96
[2021-11-16] MEDS: OXYCODONE 5 MG TABLET PO ×4 (04:07→20:31)
[2021-11-16] MEDS: ACETAMINOPHEN 500 MG TABLET 1000 MG PO ×3 (07:27→20:31)
[2021-11-16] MEDS: SENNOSIDES/DOCUSATE TABLET 2 TAB PO ×2 (07:28→20:31)
[2021-11-16] MEDS: POTASSIUM CHLORIDE 10 MEQ CAPSULE ER PO (07:28)
[2021-11-16] MEDS: FLUOXETINE HCL 10 MG CAPSULE PO (07:28)
[2021-11-16 10:26] VITALS: TEMP 36.4; O2SAT 96
[2021-11-16 15:00] VITALS: TEMP 36.3; O2SAT 99
[2021-11-17 03:43] VITALS: TEMP 36.4; O2SAT 98
[2021-11-17] MEDS: OXYCODONE 5 MG TABLET PO ×4 (04:18→19:34)
[2021-11-17] MEDS: ACETAMINOPHEN 500 MG TABLET 1000 MG PO ×3 (07:07→19:34)
[2021-11-17] MEDS: FLUOXETINE HCL 10 MG CAPSULE PO (07:08)
[2021-11-17] MEDS: SENNOSIDES/DOCUSATE TABLET 2 TAB PO ×2 (07:08→19:34)
[2021-11-17 12:49] VITALS: TEMP 36.3; O2SAT 98
[2021-11-17 15:00] VITALS: TEMP 36.8; O2SAT 97
[2021-11-17 23:00] VITALS: TEMP 36.7; O2SAT 95
--- NOTE | 2021-11-18 02:35 | PC.NURSE ---
Week #4: Care plan 40-119, Temporary care plan, and Vital signs reviewed - nothing added and no change made at this time. No change in communication, hearing, vision, chronic health condition, or medication. Resident 0400 scheduled Oxycodone 5 mg is administered by [facility] nurse. Mood/behavior: Often sleeps through the night - no behavioral issues noted or reported at [facility] . Resident is taking Fluoxetine 10 mg daily.
--- NOTE | 2021-11-18 02:57 | PC.NURSE ---
Week #4: Care plan 40-119, Temporary care plan, and Vital signs reviewed - nothing added and no change made at this time. No change in communication, hearing, vision, or chronic health condition. Potassium Chloride is changed to Q48H. Resident's 0400 scheduled Oxycodone 5 mg is administered by [facility] nurse. Mood/behavior: Often sleeps through the night - no behavioral issues noted or reported at [facility] . Resident is taking Fluoxetine 10 mg daily - no adverse effect noted .
[2021-11-18] MEDS: OXYCODONE 5 MG TABLET PO ×4 (04:32→19:18)
[2021-11-18] MEDS: POTASSIUM CHLORIDE 10 MEQ CAPSULE ER PO (07:36)
[2021-11-18] MEDS: SENNOSIDES/DOCUSATE TABLET 2 TAB PO ×2 (07:36→19:18)
[2021-11-18] MEDS: ACETAMINOPHEN 500 MG TABLET 1000 MG PO ×3 (07:36→19:18)
[2021-11-18] MEDS: FLUOXETINE HCL 10 MG CAPSULE PO (07:36)
[2021-11-18 11:19] VITALS: TEMP 36.2; O2SAT 98
--- NOTE | 2021-11-18 12:25 | PC.NURSE ---
Week #4: Care plan 40-119, Temporary care plan, and Vital signs reviewed - nothing added and no change made at this time. No change in communication, hearing, vision, or chronic health condition. Mood/behavior: Pleasant. No behavioral issues noted or reported. Resident is taking Fluoxetine 10 mg daily - no adverse effect noted .
[2021-11-18 13:29] VITALS: BP 140/72; PULSE 68; RESP 20; TEMP 36.2; O2SAT 98
[2021-11-18 21:08] VITALS: TEMP 36.3; O2SAT 98
[2021-11-19 04:02] VITALS: TEMP 36.6; O2SAT 95
[2021-11-19] MEDS: OXYCODONE 5 MG TABLET PO ×4 (04:23→19:45)
[2021-11-19] MEDS: FLUOXETINE HCL 10 MG CAPSULE PO (07:34)
[2021-11-19] MEDS: SENNOSIDES/DOCUSATE TABLET 2 TAB PO ×2 (07:34→19:45)
[2021-11-19] MEDS: ACETAMINOPHEN 500 MG TABLET 1000 MG PO ×3 (07:34→19:45)
[2021-11-19 11:06] VITALS: TEMP 36.3; O2SAT 96
[2021-11-19 15:00] VITALS: TEMP 36.4; O2SAT 97
[2021-11-19 23:00] VITALS: TEMP 36.4; O2SAT 95
[2021-11-20] MEDS: OXYCODONE 5 MG TABLET PO ×4 (03:59→19:27)
[2021-11-20 07:00] VITALS: TEMP 36.4; O2SAT 95
[2021-11-20] MEDS: ACETAMINOPHEN 500 MG TABLET 1000 MG PO ×3 (08:09→19:27)
[2021-11-20] MEDS: POTASSIUM CHLORIDE 10 MEQ CAPSULE ER PO (08:10)
[2021-11-20] MEDS: SENNOSIDES/DOCUSATE TABLET 2 TAB PO ×2 (08:10→19:27)
[2021-11-20] MEDS: FLUOXETINE HCL 10 MG CAPSULE PO (08:10)
[2021-11-20 15:00] VITALS: TEMP 36.8; O2SAT 100
[2021-11-21 03:00] VITALS: TEMP 36.8; O2SAT 96
[2021-11-21] MEDS: OXYCODONE 5 MG TABLET PO ×4 (04:11→19:28)
[2021-11-21] MEDS: ACETAMINOPHEN 500 MG TABLET 1000 MG PO ×3 (07:04→19:28)
[2021-11-21] MEDS: SENNOSIDES/DOCUSATE TABLET 2 TAB PO ×2 (07:05→19:28)
[2021-11-21] MEDS: FLUOXETINE HCL 10 MG CAPSULE PO (07:05)
[2021-11-21 10:51] VITALS: TEMP 36.3; O2SAT 94
[2021-11-21 16:42] VITALS: TEMP 36.9; O2SAT 98
[2021-11-22] MEDS: OXYCODONE 5 MG TABLET PO ×4 (04:02→19:03)
[2021-11-22 06:33] VITALS: TEMP 36.9; O2SAT 96
[2021-11-22] MEDS: POTASSIUM CHLORIDE 10 MEQ CAPSULE ER PO (07:41)
[2021-11-22] MEDS: ACETAMINOPHEN 500 MG TABLET 1000 MG PO ×3 (07:41→19:03)
[2021-11-22] MEDS: FLUOXETINE HCL 10 MG CAPSULE PO (07:41)
[2021-11-22] MEDS: SENNOSIDES/DOCUSATE TABLET 2 TAB PO ×2 (07:41→19:03)
[2021-11-22 10:48] VITALS: TEMP 36.3; O2SAT 99
[2021-11-22 10:49] VITALS: BP 149/77; PULSE 61; RESP 16; TEMP 36.3; O2SAT 99
[2021-11-22 13:52] VITALS: BMI 30.1
[2021-11-22 15:00] VITALS: TEMP 36.7; O2SAT 98
[2021-11-23 01:46] VITALS: TEMP 36.9; O2SAT 95
[2021-11-23] MEDS: OXYCODONE 5 MG TABLET PO ×4 (04:14→19:46)
[2021-11-23] MEDS: ACETAMINOPHEN 500 MG TABLET 1000 MG PO ×3 (07:18→19:46)
[2021-11-23] MEDS: SENNOSIDES/DOCUSATE TABLET 2 TAB PO ×2 (07:18→19:46)
[2021-11-23] MEDS: FLUOXETINE HCL 10 MG CAPSULE PO (07:18)
[2021-11-23 10:50] VITALS: TEMP 36.9; O2SAT 94
[2021-11-23 15:00] VITALS: TEMP 36.2; O2SAT 97
[2021-11-24 03:41] VITALS: TEMP 36.6; O2SAT 95
[2021-11-24] MEDS: OXYCODONE 5 MG TABLET PO ×4 (04:15→20:09)
[2021-11-24] MEDS: ACETAMINOPHEN 500 MG TABLET 1000 MG PO ×3 (07:17→20:09)
[2021-11-24] MEDS: POTASSIUM CHLORIDE 10 MEQ CAPSULE ER PO (07:17)
[2021-11-24] MEDS: FLUOXETINE HCL 10 MG CAPSULE PO (07:17)
[2021-11-24] MEDS: SENNOSIDES/DOCUSATE TABLET 2 TAB PO ×2 (07:17→20:09)
[2021-11-24 08:47] LABS: Chloride* 107 mmol/L (96-114); Sodium* 143 mmol/L (135-149)
[2021-11-24 08:50] LABS: Blood Urea Nitrogen* 21 mg/dL (7-30); Carbon Dioxide* 25 mmol/L (20-32); Creatinine* 0.4 mg/dL (0.5-1.5); Est. Creatinine Clearance* 40.21; Estimated Glomerular Filt Rate 103 ml/min
[2021-11-24 08:51] LABS: Calcium* 9.5 mg/dL (8.4-10.6); Glucose* 98 mg/dL (60-115)
[2021-11-24 10:54] VITALS: TEMP 36.6; O2SAT 96
--- NOTE | 2021-11-24 11:14 | PC.NURSE ---
Addendum entered by Debra Mireles RN 11/24/21 11:18: Discontinue Potassium Chloride 10meq Q48H, Check Potassium on 12/27/21. Original Note: BMP/Order: Result reviewed by Renuka STEARNS. Order: Discontinue Potassium Chloride 10meq q
[2021-11-24 15:51] VITALS: TEMP 36.2; O2SAT 99
--- NOTE | 2021-11-25 00:52 | PC.NURSE ---
Week #1: Resident has not complained of pain on NOC in the past month. Is on Oxycodone 5mg PO QID and PRN Q4H and, Acetaminophen 1000mg PO TID. Temporary care plan reviewed, no change. Care plan 1-19 reviewed, no change. Resident is total assist with all ADLs will call. Has covered mug at bed side.
[2021-11-25 02:31] VITALS: TEMP 36.6; O2SAT 95
[2021-11-25] MEDS: OXYCODONE 5 MG TABLET PO ×4 (04:04→19:23)
[2021-11-25] MEDS: ACETAMINOPHEN 500 MG TABLET 1000 MG PO ×3 (07:14→19:23)
[2021-11-25] MEDS: FLUOXETINE HCL 10 MG CAPSULE PO (07:14)
[2021-11-25] MEDS: polyethylene glycoL 238 GM BULK BOTTLE 17 GM PO (07:15)
[2021-11-25] MEDS: SENNOSIDES/DOCUSATE TABLET 2 TAB PO ×2 (07:15→19:23)
[2021-11-25 10:36] VITALS: TEMP 36.3; O2SAT 95
[2021-11-25 15:00] VITALS: TEMP 36.7; O2SAT 98
--- NOTE | 2021-11-25 20:44 | PC.NURSE ---
Week #1: Temporary care plan, Care plan problems 1-19, and vital signs reviewed. No changes made and nothing added to temporary care plan. Resident is total assistance of 1 with dressing, grooming, personal hygiene; and 2 assist bed baths. Assist 1 with oral cares. Total assist with feeding, but resident is able to feed self occasionally after set up assistance. No decrease in appetite concerns at this time, and no choking episode noted or reported. Pain Management: Resident's chronic pain is managed with these medications: scheduled - Acetaminophen 1000 mg TID, Oxycodone 5 mg QID, and INTRATHECAL 100.5 mcg Q24H; PRN - Oxycodone 5 mg Q4H PRN, and Baclofen 20 mg 4 hourly as needed.
[2021-11-26 02:37] VITALS: TEMP 36.4; O2SAT 95
[2021-11-26] MEDS: OXYCODONE 5 MG TABLET PO ×4 (04:05→19:21)
[2021-11-26] MEDS: SENNOSIDES/DOCUSATE TABLET 2 TAB PO ×2 (08:01→19:21)
[2021-11-26] MEDS: ACETAMINOPHEN 500 MG TABLET 1000 MG PO ×3 (08:01→19:21)
[2021-11-26] MEDS: FLUOXETINE HCL 10 MG CAPSULE PO (08:01)
[2021-11-26 13:07] VITALS: TEMP 36.4; O2SAT 95
[2021-11-26 23:00] VITALS: TEMP 36.1; O2SAT 96
[2021-11-27] MEDS: OXYCODONE 5 MG TABLET PO ×4 (04:26→19:40)
[2021-11-27 07:00] VITALS: TEMP 36.3; O2SAT 99
[2021-11-27] MEDS: ACETAMINOPHEN 500 MG TABLET 1000 MG PO ×3 (07:55→19:40)
[2021-11-27] MEDS: FLUOXETINE HCL 10 MG CAPSULE PO (07:55)
[2021-11-27] MEDS: SENNOSIDES/DOCUSATE TABLET 2 TAB PO ×2 (07:55→19:40)
[2021-11-27 13:49] VITALS: TEMP 36.3; O2SAT 99
[2021-11-27 23:00] VITALS: TEMP 36.3; O2SAT 95
[2021-11-28] MEDS: OXYCODONE 5 MG TABLET PO ×4 (04:07→19:09)
[2021-11-28] MEDS: ACETAMINOPHEN 500 MG TABLET 1000 MG PO ×3 (07:07→19:09)
[2021-11-28] MEDS: FLUOXETINE HCL 10 MG CAPSULE PO (07:08)
[2021-11-28] MEDS: SENNOSIDES/DOCUSATE TABLET 2 TAB PO ×2 (07:08→19:10)
[2021-11-28 13:40] VITALS: TEMP 36.6; O2SAT 96
--- NOTE | 2021-11-28 16:07 | PC.NURSE ---
COVID OUTBREAK TESTING: Resident was excluded from testing d/t recent COVID+ status. Testing will resume after 90 days from positive test result.
[2021-11-28 16:53] VITALS: TEMP 36.4; O2SAT 96
[2021-11-29 02:39] VITALS: TEMP 36.3; O2SAT 97
[2021-11-29] MEDS: OXYCODONE 5 MG TABLET PO ×4 (04:08→19:10)
[2021-11-29] MEDS: ACETAMINOPHEN 500 MG TABLET 1000 MG PO ×3 (07:09→19:10)
[2021-11-29] MEDS: FLUOXETINE HCL 10 MG CAPSULE PO (07:10)
[2021-11-29] MEDS: SENNOSIDES/DOCUSATE TABLET 2 TAB PO ×2 (07:10→19:10)
[2021-11-29 10:36] VITALS: BP 113/72; PULSE 63; RESP 18; TEMP 36.9; O2SAT 63; O2SAT 96
--- NOTE | 2021-11-29 12:34 | PC.NURSE ---
Skin on (R) outer foot assessed by BRANCH MECHANIC. Order: Apply Mepitel, Change weekly or PRN sooner.
[2021-11-29 16:32] VITALS: TEMP 36.3; O2SAT 96
[2021-11-29 23:00] VITALS: TEMP 36.4; O2SAT 95
[2021-11-30] MEDS: OXYCODONE 5 MG TABLET PO ×4 (04:14→19:02)
[2021-11-30] MEDS: ACETAMINOPHEN 500 MG TABLET 1000 MG PO ×3 (07:25→19:02)
[2021-11-30] MEDS: FLUOXETINE HCL 10 MG CAPSULE PO (07:30)
[2021-11-30] MEDS: SENNOSIDES/DOCUSATE TABLET 2 TAB PO ×2 (07:30→19:02)
[2021-11-30 10:34] VITALS: BMI 30.4
[2021-11-30 11:04] VITALS: TEMP 36.2; O2SAT 98
[2021-11-30 16:37] VITALS: TEMP 36.3; O2SAT 99
[2021-11-30 23:00] VITALS: TEMP 35.9; O2SAT 93
[2021-12-01] MEDS: OXYCODONE 5 MG TABLET PO ×4 (04:11→20:47)
[2021-12-01] MEDS: ACETAMINOPHEN 500 MG TABLET 1000 MG PO ×3 (07:23→20:47)
[2021-12-01] MEDS: FLUOXETINE HCL 10 MG CAPSULE PO (07:23)
[2021-12-01] MEDS: SENNOSIDES/DOCUSATE TABLET 2 TAB PO ×2 (07:24→20:47)
[2021-12-01 12:10] VITALS: TEMP 36.4; O2SAT 96
[2021-12-01 15:00] VITALS: TEMP 36.8; O2SAT 95
[2021-12-01 23:00] VITALS: TEMP 36.8; O2SAT 95
--- NOTE | 2021-12-02 03:53 | PC.NURSE ---
Week #2: Temporary care plan, Vital signs, and Care plan problems #20-29 reviewed.? No changes made.? Nothing added to temporary care plan.? Resident is repositioned during 1st and 3rd rounds as staff makes her comfortable with pillows. Top bed rails are up. Falls: No fall incident reported, noted, or self-reported in the past month.? Remains a high fall risk according to assessment done on 10/06/21.
[2021-12-02] MEDS: OXYCODONE 5 MG TABLET PO ×4 (04:18→19:05)
[2021-12-02] MEDS: SENNOSIDES/DOCUSATE TABLET 2 TAB PO ×2 (07:02→19:06)
[2021-12-02] MEDS: ACETAMINOPHEN 500 MG TABLET 1000 MG PO ×3 (07:02→19:05)
[2021-12-02] MEDS: FLUOXETINE HCL 10 MG CAPSULE PO (07:02)
[2021-12-02 13:06] VITALS: TEMP 36.6; O2SAT 96
[2021-12-02 15:00] VITALS: TEMP 36.3; O2SAT 99
[2021-12-02 23:00] VITALS: TEMP 36.4; O2SAT 96
[2021-12-03] MEDS: OXYCODONE 5 MG TABLET PO ×4 (04:07→19:07)
[2021-12-03] MEDS: FLUOXETINE HCL 10 MG CAPSULE PO (07:19)
[2021-12-03] MEDS: ACETAMINOPHEN 500 MG TABLET 1000 MG PO ×3 (07:19→19:07)
[2021-12-03] MEDS: SENNOSIDES/DOCUSATE TABLET 2 TAB PO ×2 (07:19→19:07)
[2021-12-03 11:00] VITALS: TEMP 36.1; O2SAT 96
[2021-12-03 22:03] VITALS: TEMP 36.3; O2SAT 99
[2021-12-04 02:14] VITALS: TEMP 36.2; O2SAT 96
[2021-12-04] MEDS: OXYCODONE 5 MG TABLET PO ×4 (04:07→19:47)
[2021-12-04] MEDS: ACETAMINOPHEN 500 MG TABLET 1000 MG PO ×3 (08:11→19:47)
[2021-12-04] MEDS: FLUOXETINE HCL 10 MG CAPSULE PO (08:12)
[2021-12-04] MEDS: SENNOSIDES/DOCUSATE TABLET 2 TAB PO ×2 (08:12→19:47)
[2021-12-04 13:44] VITALS: TEMP 36; O2SAT 94
[2021-12-04 15:00] VITALS: TEMP 36.7; O2SAT 97
[2021-12-04 23:00] VITALS: TEMP 36.4; O2SAT 92
[2021-12-05] MEDS: OXYCODONE 5 MG TABLET PO ×4 (04:26→19:12)
[2021-12-05] MEDS: ACETAMINOPHEN 500 MG TABLET 1000 MG PO ×3 (07:06→19:12)
[2021-12-05] MEDS: FLUOXETINE HCL 10 MG CAPSULE PO (07:06)
[2021-12-05] MEDS: SENNOSIDES/DOCUSATE TABLET 2 TAB PO ×2 (07:06→19:12)
[2021-12-05 10:31] VITALS: TEMP 36.2; O2SAT 95
--- NOTE | 2021-12-05 10:53 | PC.NURSE ---
Weekly #2: Vital signs reviewed with no issues Resident is not a fall risk Temporary care plan reviewed with no changes Care plan problems #20-29 reviewed with no changes Resident is assist of 1 with all bed mobility, wheelchair positioning,2 to transfer using margo lift, is nonambulatory, is wheeled to all destinations
--- NOTE | 2021-12-05 14:07 | PC.NURSE ---
COVID OUTBREAK TESTING: Resident was excluded from testing d/t recent COVID+ status. Testing will resume after 90 days from positive test result.
[2021-12-05 16:35] VITALS: TEMP 36.3; O2SAT 95
[2021-12-06 00:10] VITALS: TEMP 36.4; O2SAT 95
[2021-12-06] MEDS: OXYCODONE 5 MG TABLET PO ×4 (04:30→19:23)
[2021-12-06] MEDS: ACETAMINOPHEN 500 MG TABLET 1000 MG PO ×3 (07:03→19:23)
[2021-12-06] MEDS: FLUOXETINE HCL 10 MG CAPSULE PO (07:03)
[2021-12-06] MEDS: SENNOSIDES/DOCUSATE TABLET 2 TAB PO ×2 (07:04→19:23)
[2021-12-06 10:47] VITALS: TEMP 37.2; O2SAT 95; BMI 30.1
[2021-12-06 10:48] VITALS: BP 106/58; PULSE 64; RESP 16; TEMP 37.2; O2SAT 95
[2021-12-06 15:00] VITALS: TEMP 37.2; O2SAT 95
[2021-12-07 01:03] VITALS: TEMP 36.4; O2SAT 96
[2021-12-07] MEDS: OXYCODONE 5 MG TABLET PO ×4 (03:53→20:23)
[2021-12-07] MEDS: FLUOXETINE HCL 10 MG CAPSULE PO (07:03)
[2021-12-07] MEDS: ACETAMINOPHEN 500 MG TABLET 1000 MG PO ×3 (07:03→20:23)
[2021-12-07] MEDS: SENNOSIDES/DOCUSATE TABLET 2 TAB PO ×2 (07:03→20:23)
--- NOTE | 2021-12-07 15:46 | PC.PHA ---
Pharmacy Review ~ Patient continues on same medication regimen, no need for prn pain meds. Baclofen pump continues and prn oral order continues to go unneeded. Renal Dosing of Oseltamivir: Treatment:30 mg po BID for 5 days Prophylaxis:30 mg po Daily for 14 days or longer (see policy)
[2021-12-08] MEDS: OXYCODONE 5 MG TABLET PO ×4 (04:20→19:27)
[2021-12-08] MEDS: ACETAMINOPHEN 500 MG TABLET 1000 MG PO ×3 (07:03→19:27)
[2021-12-08] MEDS: SENNOSIDES/DOCUSATE TABLET 2 TAB PO ×2 (07:04→19:27)
[2021-12-08] MEDS: FLUOXETINE HCL 10 MG CAPSULE PO (07:04)
[2021-12-08] MEDS: polyethylene glycoL 238 GM BULK BOTTLE 17 GM PO (07:12)
--- NOTE | 2021-12-09 00:46 | PC.NURSE ---
Week #3: Resident has an open area on the right outer foot, it is covered by Mepitel that is changed weekly on bath day or PRN. Temporary care plan reviewed, no change. Care plan 30-39 reviewed, no change. Resident is incontinent of bowel and bladder, is on a toileting schedule. Wears a brief and is changed in bed.
[2021-12-09] MEDS: OXYCODONE 5 MG TABLET PO ×4 (04:05→20:40)
[2021-12-09] MEDS: ACETAMINOPHEN 500 MG TABLET 1000 MG PO ×3 (07:20→20:40)
[2021-12-09] MEDS: SENNOSIDES/DOCUSATE TABLET 2 TAB PO ×2 (07:20→20:40)
[2021-12-09] MEDS: FLUOXETINE HCL 10 MG CAPSULE PO (07:20)
--- NOTE | 2021-12-09 21:53 | PC.NURSE ---
Week #3: Temporary care, Care plan problems 30-39, and vital signs reviewed. No changes made. Nothing added to temporary care plan. Resident is incontinent of bowel and bladder, and is check & change in bed Q2H & PRN. Requires 1-2 assists to manage pads, enriqueta cares, and clothing. Extensive assist of two for transfers to/in bed and wheelchair. Skin: Has old bruises on both legs; otherwise, no new skin concerns at this time. Skin is checked during cares and on bath day.
[2021-12-10] MEDS: OXYCODONE 5 MG TABLET PO ×4 (04:32→20:19)
[2021-12-10] MEDS: SENNOSIDES/DOCUSATE TABLET 2 TAB PO ×2 (07:40→20:19)
[2021-12-10] MEDS: ACETAMINOPHEN 500 MG TABLET 1000 MG PO ×3 (07:40→20:18)
[2021-12-10] MEDS: FLUOXETINE HCL 10 MG CAPSULE PO (07:40)
[2021-12-11] MEDS: OXYCODONE 5 MG TABLET PO ×4 (03:47→19:04)
[2021-12-11] MEDS: ACETAMINOPHEN 500 MG TABLET 1000 MG PO ×3 (07:23→19:04)
[2021-12-11] MEDS: SENNOSIDES/DOCUSATE TABLET 2 TAB PO ×2 (07:23→19:04)
[2021-12-11] MEDS: FLUOXETINE HCL 10 MG CAPSULE PO (07:23)
[2021-12-12] MEDS: OXYCODONE 5 MG TABLET PO ×4 (04:35→19:42)
[2021-12-12] MEDS: SENNOSIDES/DOCUSATE TABLET 2 TAB PO ×2 (07:04→19:42)
[2021-12-12] MEDS: FLUOXETINE HCL 10 MG CAPSULE PO (07:04)
[2021-12-12] MEDS: ACETAMINOPHEN 500 MG TABLET 1000 MG PO ×3 (07:04→19:35)
[2021-12-12] MEDS: MAG HYDROX/ALUMINUM HYD/SIMETH 30 ML ORAL.SUSP PO (10:23)
[2021-12-13] MEDS: OXYCODONE 5 MG TABLET PO ×4 (04:20→19:15)
[2021-12-13] MEDS: SENNOSIDES/DOCUSATE TABLET 2 TAB PO ×2 (07:13→19:24)
[2021-12-13] MEDS: FLUOXETINE HCL 10 MG CAPSULE PO (07:13)
[2021-12-13] MEDS: ACETAMINOPHEN 500 MG TABLET 1000 MG PO ×3 (07:13→19:15)
[2021-12-13 09:29] VITALS: BMI 30.1
[2021-12-13 10:22] VITALS: BP 110/60; PULSE 68; RESP 20; TEMP 36.3; O2SAT 96
--- NOTE | 2021-12-13 14:48 | PC.SOCIAL ---
Yovani is set up to picking belt operator resident on 12/27 between 11:40-noon to take her to her pump refill at [facility]. Daughter Imani to ride with.
[2021-12-14] MEDS: OXYCODONE 5 MG TABLET PO ×4 (04:35→19:04)
[2021-12-14] MEDS: ACETAMINOPHEN 500 MG TABLET 1000 MG PO ×3 (07:44→19:04)
[2021-12-14] MEDS: SENNOSIDES/DOCUSATE TABLET 2 TAB PO ×2 (07:45→19:04)
[2021-12-14] MEDS: FLUOXETINE HCL 10 MG CAPSULE PO (07:45)
[2021-12-15] MEDS: OXYCODONE 5 MG TABLET PO ×5 (04:24→19:09)
[2021-12-15] MEDS: ACETAMINOPHEN 500 MG TABLET 1000 MG PO ×3 (07:15→19:09)
[2021-12-15] MEDS: FLUOXETINE HCL 10 MG CAPSULE PO (07:15)
[2021-12-15] MEDS: SENNOSIDES/DOCUSATE TABLET 2 TAB PO ×2 (07:15→19:09)
--- NOTE | 2021-12-16 02:16 | PC.NURSE ---
Week #4: No change in mood/behavior. Generally pleasant with staff. Currently receives fluoxetine 10mg daily with no noted adverse effects. Temporary care plan and care plan problems 40-119 reviewed with no changes or additions. NO change in communication, hearing, vision, or orientation. No change in chronic health condition or medications. All medications administered by licensed nurse. Is occasionally resistive with cares during the night.
[2021-12-16] MEDS: OXYCODONE 5 MG TABLET PO ×4 (04:08→19:06)
--- NOTE | 2021-12-16 06:29 | PC.NURSE ---
Week #4: Care plan problems 40-119 and temporary care plan reviewed. No changes made. Nothing added to temporary care plan. No changes in communication, hearing vision, and orientation. She does make her needs known. Vision & hearing fine. Has cognitive impairment d/t dementia. Chronic health condition stable.Does not self administer medications. VS fine. Mood/Behavior: One episode of confusion. Continues on Prozac with no adverse effects noted. Has no change in medication.
[2021-12-16] MEDS: FLUOXETINE HCL 10 MG CAPSULE PO (07:00)
[2021-12-16] MEDS: SENNOSIDES/DOCUSATE TABLET 2 TAB PO ×2 (07:00→19:06)
[2021-12-16] MEDS: ACETAMINOPHEN 500 MG TABLET 1000 MG PO ×3 (07:00→19:06)
[2021-12-17] MEDS: OXYCODONE 5 MG TABLET PO ×4 (04:02→19:06)
[2021-12-17] MEDS: FLUOXETINE HCL 10 MG CAPSULE PO (07:06)
[2021-12-17] MEDS: ACETAMINOPHEN 500 MG TABLET 1000 MG PO ×3 (07:06→19:06)
[2021-12-17] MEDS: SENNOSIDES/DOCUSATE TABLET 2 TAB PO ×2 (07:06→19:06)
[2021-12-18] MEDS: OXYCODONE 5 MG TABLET PO ×4 (03:11→19:07)
[2021-12-18] MEDS: SENNOSIDES/DOCUSATE TABLET 2 TAB PO ×2 (07:08→19:07)
[2021-12-18] MEDS: FLUOXETINE HCL 10 MG CAPSULE PO (07:08)
[2021-12-18] MEDS: ACETAMINOPHEN 500 MG TABLET 1000 MG PO ×3 (07:08→19:07)
[2021-12-19] MEDS: OXYCODONE 5 MG TABLET PO ×4 (04:35→19:33)
[2021-12-19] MEDS: ACETAMINOPHEN 500 MG TABLET 1000 MG PO ×3 (07:22→19:33)
[2021-12-19] MEDS: SENNOSIDES/DOCUSATE TABLET 2 TAB PO ×2 (07:23→19:33)
[2021-12-19] MEDS: FLUOXETINE HCL 10 MG CAPSULE PO (07:23)
[2021-12-20] MEDS: OXYCODONE 5 MG TABLET PO ×4 (04:34→20:41)
[2021-12-20] MEDS: ACETAMINOPHEN 500 MG TABLET 1000 MG PO ×3 (07:19→20:41)
[2021-12-20] MEDS: FLUOXETINE HCL 10 MG CAPSULE PO (07:20)
[2021-12-20] MEDS: SENNOSIDES/DOCUSATE TABLET 2 TAB PO ×2 (07:20→20:41)
[2021-12-20 10:48] VITALS: BP 136/92; PULSE 67; RESP 20; TEMP 36.8; O2SAT 97; BMI 30.4
[2021-12-21] MEDS: OXYCODONE 5 MG TABLET PO ×4 (04:08→20:25)
[2021-12-21] MEDS: ACETAMINOPHEN 500 MG TABLET 1000 MG PO ×3 (07:32→20:25)
[2021-12-21] MEDS: SENNOSIDES/DOCUSATE TABLET 2 TAB PO ×2 (07:32→20:25)
[2021-12-21] MEDS: FLUOXETINE HCL 10 MG CAPSULE PO (07:32)
[2021-12-22] MEDS: OXYCODONE 5 MG TABLET PO ×4 (04:11→19:05)
[2021-12-22] MEDS: ACETAMINOPHEN 500 MG TABLET 1000 MG PO ×3 (07:12→19:05)
[2021-12-22] MEDS: FLUOXETINE HCL 10 MG CAPSULE PO (07:13)
[2021-12-22] MEDS: SENNOSIDES/DOCUSATE TABLET 2 TAB PO ×2 (07:13→19:05)
--- NOTE | 2021-12-22 16:35 | PC.NURSE ---
Hot Liquid Assessment: Physical and cognitive impairments cause residents to need to have an adaptive cup, staff assistance, and should only have hot liquids at a table.
--- NOTE | 2021-12-23 00:11 | PC.NURSE ---
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 Current pain management includes: Acetaminophen 1000mg TID and oxycodone 5mg QID at 0400, 0800, 1200, 2000 and Q4 hours PRN. Has utilized PRN oxycodone x1 in last month. Intrathecal baclofen pump for spasticity. Baclofen 20mg Q 4hours PRN with no use as it is only to be used if pump is empty. Pain is currently well managed and does not impact quality of life. Temporary care plan and care plan problems 1-19 reviewed with no changes. Requires total assist of 1-2 for ADLs. Assist of 2 with full mechanical lift for all transfers. Eating ability is variable from total assist to independent after setup. Meals provided according to personal preferences. Fluid intake is encouraged r/t hx of inadequate fluid intake. No swallowing concerns.
[2021-12-23] MEDS: OXYCODONE 5 MG TABLET PO ×4 (04:28→19:17)
--- NOTE | 2021-12-23 07:48 | PC.NURSE ---
Week #1: Care plan problems - and temporary care plan reviewed. No changes made. Nothing added to temporary care plan. Resident needs total assistance of 1-2 with dressing,, and bathing. Bed bath only. One assist with grooming. Staff does oral cares. Has upper partials & some natural teeth. Is on regular diet, small portions per her request. Needs PRN assistance at meals. Also can feed self at times after set up. Receives nourishment at noon. No problems with chewing or swallowing noted. Pain: Has chronic pain. Received PRN oxycodone x 1 the past month with relief. Pain is managed with Tylenol 1000mg TID, Oxycodone 5mg QID @ 04, 08, 12, & 1999. And also an order for Oxycodone 5mg Q4H PRN. Can tell when in pain and staff also anticipates.
[2021-12-23] MEDS: ACETAMINOPHEN 500 MG TABLET 1000 MG PO ×3 (08:38→19:16)
[2021-12-23] MEDS: SENNOSIDES/DOCUSATE TABLET 2 TAB PO ×2 (08:39→19:17)
[2021-12-23] MEDS: FLUOXETINE HCL 10 MG CAPSULE PO (08:39)
[2021-12-24] MEDS: OXYCODONE 5 MG TABLET PO ×4 (04:13→19:21)
[2021-12-24] MEDS: SENNOSIDES/DOCUSATE TABLET 2 TAB PO ×2 (08:44→19:21)
[2021-12-24] MEDS: ACETAMINOPHEN 500 MG TABLET 1000 MG PO ×3 (08:44→19:21)
[2021-12-24] MEDS: FLUOXETINE HCL 10 MG CAPSULE PO (08:44)
[2021-12-25] MEDS: OXYCODONE 5 MG TABLET PO ×4 (04:07→19:16)
[2021-12-25] MEDS: ACETAMINOPHEN 500 MG TABLET 1000 MG PO ×3 (08:36→19:16)
[2021-12-25] MEDS: FLUOXETINE HCL 10 MG CAPSULE PO (08:36)
[2021-12-25] MEDS: SENNOSIDES/DOCUSATE TABLET 2 TAB PO ×2 (08:37→19:16)
[2021-12-26] MEDS: OXYCODONE 5 MG TABLET PO ×4 (03:56→19:39)
[2021-12-26] MEDS: FLUOXETINE HCL 10 MG CAPSULE PO (07:07)
[2021-12-26] MEDS: SENNOSIDES/DOCUSATE TABLET 2 TAB PO ×2 (07:07→19:39)
[2021-12-26] MEDS: ACETAMINOPHEN 500 MG TABLET 1000 MG PO ×3 (07:07→19:34)
--- NOTE | 2021-12-26 09:05 | PC.NURSE ---
Right foot soaked at the callus site on right, outer ball of foot. Callus skin removed. Small scab continues to be present at right, outer ball of foot. NO s/s infection. LOTA.
[2021-12-27] MEDS: OXYCODONE 5 MG TABLET PO ×4 (03:58→19:45)
[2021-12-27] MEDS: SENNOSIDES/DOCUSATE TABLET 2 TAB PO ×2 (07:02→19:45)
[2021-12-27] MEDS: FLUOXETINE HCL 10 MG CAPSULE PO (07:02)
[2021-12-27] MEDS: ACETAMINOPHEN 500 MG TABLET 1000 MG PO ×3 (07:02→19:42)
[2021-12-27 07:20] LABS: Potassium* 3.7 mmol/L (3.6-5.1)
[2021-12-27 09:59] VITALS: BMI 30.6
--- NOTE | 2021-12-27 10:30 | PC.NURSE ---
Wound: (R) outer foot found open to air, healed.
[2021-12-27 11:09] VITALS: BP 150/70; PULSE 68; RESP 20; TEMP 36.2; O2SAT 97
--- NOTE | 2021-12-27 14:35 | PC.NURSE ---
Appointment: Resident went to [facility] @ 1210 for baclofen pump check with daughter via [employer] transport.
--- NOTE | 2021-12-27 16:06 | PC.SOCIAL ---
Met with resident's daughter, Lisa Hutchinson. Lisa states that the transportation company was unable to find the correct building at [facility] in [place] today for resident's appointment and stated that resident missed her appointment. Appointment to refill her pump was rescheduled to Sunday January 02, 2022 at 11:00 am with a 10:45 am check in time. Appointment is on fifth floor at the Department of Physical Medicine and Rehabilitation. Lisa will ride with resident to appointment. Made a phone call to [employer] and set up transportation request with [facility]. Received a phone call from [facility] requesting specific details about appointment location. Provided resident's daughter, Lisa's, phone number to [facility]. [facility] will pickling grader at [facility] between 9:00 am and 9:20 am. Made a phone call to resident's daughter, Lisa Hutchinson, and left a voicemail providing details on the transportation that was set.
[2021-12-28] MEDS: OXYCODONE 5 MG TABLET PO ×4 (03:15→19:02)
[2021-12-28] MEDS: SENNOSIDES/DOCUSATE TABLET 2 TAB PO ×2 (07:43→19:02)
[2021-12-28] MEDS: ACETAMINOPHEN 500 MG TABLET 1000 MG PO ×3 (07:43→19:02)
[2021-12-28] MEDS: FLUOXETINE HCL 10 MG CAPSULE PO (07:43)
--- NOTE | 2021-12-28 11:51 | PC.NURSE ---
Spoke to daughter about baclofen pump refill appointment that was cancelled yesterday after residents transportation brought them to the incorrect building. Daughter updated funeral driver where the correct building was and funeral driver stated he was unable to drop them off at that building. Daughter decided to cancel the appointment and reschedule. New appt time and date are 01/02/22 @ 1030. to set up transportation.
--- NOTE | 2021-12-28 11:55 | PC.NURSE ---
Daughter Imani brought up during phone conversation today that her and her sister have noticed that resident at times no longer recognizes them at visits and seems more cognitively impaired with family events/persons. Updated on most recent BIMS score and K+ level. Daughter does not want any further testing done at this time due to cognition.
--- NOTE | 2021-12-28 13:44 | PC.SOCIAL ---
Phone call was placed to [facility] to confirm that a larger van would be used for resident transport on Sunday01/02/22 due to resident having a larger wheelchair. [facility] confirms they will send a larger van to accomdate resident's needs.
[2021-12-29] MEDS: OXYCODONE 5 MG TABLET PO ×4 (04:16→19:30)
[2021-12-29] MEDS: SENNOSIDES/DOCUSATE TABLET 2 TAB PO ×2 (07:48→19:30)
[2021-12-29] MEDS: FLUOXETINE HCL 10 MG CAPSULE PO (07:48)
[2021-12-29] MEDS: ACETAMINOPHEN 500 MG TABLET 1000 MG PO ×3 (07:48→19:30)
--- NOTE | 2021-12-29 12:39 | PC.NURSE ---
Lab: Potassium result reviewed by Renuka STEARNS. No new order.
--- NOTE | 2021-12-30 01:57 | PC.NURSE ---
WEEKLY CHARTING - WEEK 2: Vital signs reviewed with no concerns. Temporary and comprehensive care plan reviewed with no changes. Requires total assist with mobility and positioning. 2 staff assist with full mechanical lift for transfers. Is repositioned Q 2 hours. 1-2 assist with bed mobility. Uses half side rails bilaterally to aid with positioning in bed. Has a tilt in space w/c with pressure relieving cushion. Total staff assist to transport in w/c to all destinations. Resident is non-ambulatory. Per last fall risk assessment, resident is at high risk for falls. Limited ROM to bilateral upper and lower extremities completed by staff during cares.
[2021-12-30] MEDS: OXYCODONE 5 MG TABLET PO ×4 (04:27→19:05)
[2021-12-30] MEDS: FLUOXETINE HCL 10 MG CAPSULE PO (07:10)
[2021-12-30] MEDS: SENNOSIDES/DOCUSATE TABLET 2 TAB PO ×2 (07:10→19:05)
[2021-12-30] MEDS: ACETAMINOPHEN 500 MG TABLET 1000 MG PO ×3 (07:10→19:05)
--- NOTE | 2021-12-30 07:46 | PC.NURSE ---
Week #2 - Mobility: Care plan reviewed, no changes made. Nothing added to temporary care plan. Resident is non ambulatory. Transfers with a margo lift, 2 assists at all times. Has a tilt in space wheelchair, propelled by staff to all destinations. Needs 1-2 assist with repositioning/offloading every 2 hours. Tops side rails up in bed to aid for positioning. No alarms. Staff does limited ROM to upper and lower extremities with cares and dressing. VS reviewed, no concerns. Fall: No falls the past month.Is a high fall risk according to assessment done on 10/06/21.
--- NOTE | 2021-12-30 12:27 | PC.NURSE ---
Recert Visit: Resident seen by Dr. Cuellar. Orders reviewed and renewed of 75 days with no changes.
[2021-12-31] MEDS: OXYCODONE 5 MG TABLET PO ×4 (04:29→19:03)
[2021-12-31] MEDS: ACETAMINOPHEN 500 MG TABLET 1000 MG PO ×3 (07:05→19:03)
[2021-12-31] MEDS: SENNOSIDES/DOCUSATE TABLET 2 TAB PO ×2 (07:05→19:03)
[2021-12-31] MEDS: FLUOXETINE HCL 10 MG CAPSULE PO (07:05)
[2022-01-01] MEDS: OXYCODONE 5 MG TABLET PO ×4 (04:36→19:06)
[2022-01-01] MEDS: FLUOXETINE HCL 10 MG CAPSULE PO (07:10)
[2022-01-01] MEDS: SENNOSIDES/DOCUSATE TABLET 2 TAB PO ×2 (07:10→19:06)
[2022-01-01] MEDS: ACETAMINOPHEN 500 MG TABLET 1000 MG PO ×3 (07:10→19:06)
[2022-01-02] MEDS: OXYCODONE 5 MG TABLET PO ×4 (04:34→20:07)
[2022-01-02] MEDS: ACETAMINOPHEN 500 MG TABLET 1000 MG PO ×3 (07:23→20:05)
[2022-01-02] MEDS: FLUOXETINE HCL 10 MG CAPSULE PO (07:24)
[2022-01-02] MEDS: SENNOSIDES/DOCUSATE TABLET 2 TAB PO ×2 (07:24→20:07)
[2022-01-03] MEDS: OXYCODONE 5 MG TABLET PO ×4 (04:02→19:14)
[2022-01-03] MEDS: SENNOSIDES/DOCUSATE TABLET 2 TAB PO ×2 (07:21→19:14)
[2022-01-03] MEDS: ACETAMINOPHEN 500 MG TABLET 1000 MG PO ×3 (07:21→19:14)
[2022-01-03] MEDS: FLUOXETINE HCL 10 MG CAPSULE PO (07:21)
--- NOTE | 2022-01-03 09:08 | PC.SOCIAL ---
[facility] rescheduled for 8:15 pickle water pump operator for pt.'s 9:30am appt. at [facility] 5th floor, [address] on Sunday, 01/09. Resident's daughter will ride with.
[2022-01-03 09:40] VITALS: BP 140/60; PULSE 74; RESP 20; TEMP 36.2; O2SAT 98; BMI 30.7
--- NOTE | 2022-01-03 14:39 | PC.NURSE ---
Called [facility] for Baclofen pump refill information. As resident has missed both refills in the past week d/t transportation issues. Resident now has an appointment schedule for 01/09@ 0930. Transport will machine operator hop picker at 0815 from [facility] and daughter Jessica will ride along. Amanda Heck from [facility] stated resident does not need to have PRN Baclofen at this time. Her pump will not run out but it will be low. It will alarm every hour on the hour starting 01/07/22 until filled. Staff updated and information brought through report.
[2022-01-04] MEDS: OXYCODONE 5 MG TABLET PO ×4 (04:16→20:03)
[2022-01-04] MEDS: ACETAMINOPHEN 500 MG TABLET 1000 MG PO ×3 (08:35→20:03)
[2022-01-04] MEDS: FLUOXETINE HCL 10 MG CAPSULE PO (08:35)
[2022-01-04] MEDS: SENNOSIDES/DOCUSATE TABLET 2 TAB PO ×2 (08:35→20:03)
[2022-01-05] MEDS: OXYCODONE 5 MG TABLET PO ×4 (04:26→19:45)
[2022-01-05] MEDS: ACETAMINOPHEN 500 MG TABLET 1000 MG PO ×3 (07:03→19:45)
[2022-01-05] MEDS: SENNOSIDES/DOCUSATE TABLET 2 TAB PO ×2 (07:03→19:46)
[2022-01-05] MEDS: FLUOXETINE HCL 10 MG CAPSULE PO (07:03)
[2022-01-05] MEDS: MAG HYDROX/ALUMINUM HYD/SIMETH 30 ML ORAL.SUSP PO (10:16)
--- NOTE | 2022-01-06 02:45 | PC.NURSE ---
WEEKLY CHARTING - WEEK 3: Vital signs reviewed. BPs slightly elevated. Temporary and comprehensive care plans reviewed - no changes. Per weekly skin assessment documentation, no skin integrity concerns at this time. Is at high risk of pressure sores. Wears heel protectors at all times. Total assist of 1-2 with toileting needs. Assist of 2 with full mechanical lift for transfers. Is incontinent of bowel and bladder. Is checked and changed on 1st and 3rd rounds during the night. Staff monitor bowel patten.
[2022-01-06] MEDS: OXYCODONE 5 MG TABLET PO ×4 (04:20→19:04)
[2022-01-06] MEDS: FLUOXETINE HCL 10 MG CAPSULE PO (07:05)
[2022-01-06] MEDS: ACETAMINOPHEN 500 MG TABLET 1000 MG PO ×3 (07:05→19:04)
[2022-01-06] MEDS: SENNOSIDES/DOCUSATE TABLET 2 TAB PO ×2 (07:05→19:05)
--- NOTE | 2022-01-06 07:05 | PC.NURSE ---
Week #3- Toileting: Care plan reviewed, no changes made. Nothing added to temporary care plan. Resident is incontinent of bowel and bladder. Does not use the toilet. Is checked and changed in bed every 2 hours and PRN. Needs 1-2 assists to manage pad, pericares, and clothing. Vital signs reviewed. Has low and high values. Continue to monitor. Refer to SENIOR BUSINESS DEVELOPMENT MANAGER/MD when needed. Skin: No issues at this time. Skin is routinely checked during cares and on bath day.
[2022-01-07] MEDS: OXYCODONE 5 MG TABLET PO ×4 (04:18→19:28)
[2022-01-07] MEDS: ACETAMINOPHEN 500 MG TABLET 1000 MG PO ×3 (07:18→19:28)
[2022-01-07] MEDS: FLUOXETINE HCL 10 MG CAPSULE PO (07:19)
[2022-01-07] MEDS: SENNOSIDES/DOCUSATE TABLET 2 TAB PO ×2 (07:19→19:28)
[2022-01-08] MEDS: OXYCODONE 5 MG TABLET PO ×4 (04:12→19:09)
[2022-01-08] MEDS: ACETAMINOPHEN 500 MG TABLET 1000 MG PO ×3 (07:03→19:09)
[2022-01-08] MEDS: FLUOXETINE HCL 10 MG CAPSULE PO (07:03)
[2022-01-08] MEDS: SENNOSIDES/DOCUSATE TABLET 2 TAB PO ×2 (07:03→19:10)
[2022-01-09] MEDS: OXYCODONE 5 MG TABLET PO ×4 (04:14→20:02)
[2022-01-09] MEDS: FLUOXETINE HCL 10 MG CAPSULE PO (07:13)
[2022-01-09] MEDS: ACETAMINOPHEN 500 MG TABLET 1000 MG PO ×3 (07:13→19:58)
[2022-01-09] MEDS: SENNOSIDES/DOCUSATE TABLET 2 TAB PO ×2 (07:13→20:02)
--- NOTE | 2022-01-09 07:57 | PC.NURSE ---
Appointment: resident out to [place] via transport with daughter for pump refill.
--- NOTE | 2022-01-09 11:58 | PC.NURSE ---
Return: Back from appointment. Refill pump before 06/16/22.
[2022-01-10] MEDS: OXYCODONE 5 MG TABLET PO ×4 (04:32→19:32)
[2022-01-10] MEDS: ACETAMINOPHEN 500 MG TABLET 1000 MG PO ×3 (07:29→19:29)
[2022-01-10] MEDS: FLUOXETINE HCL 10 MG CAPSULE PO (07:29)
[2022-01-10] MEDS: SENNOSIDES/DOCUSATE TABLET 2 TAB PO ×2 (07:29→19:33)
[2022-01-10 13:10] VITALS: BP 130/72; PULSE 76; RESP 20; TEMP 36.4; O2SAT 96
[2022-01-11] MEDS: OXYCODONE 5 MG TABLET PO ×4 (04:22→19:17)
--- NOTE | 2022-01-11 07:28 | PC.PHA ---
Addendum entered by Leticia Singh 01/11/22 10:48: Medication monitoring of fluoxetine: Comment: Dose reduction attempted September of 2021 and behaviors noted. Suggested Course of Action: No change to current fluoxetine regimen. Original Note: Pharmacy Review ~ Patient continues on baclofen pump for MS management. Chronic pain continues to be managed with scheduled oxycodone and prn order has only been needed once since last month's review. Fluoxetine 10 mg po daily indicated for depression, dose is low therefore no attempt for dose reduction recommended.
[2022-01-11] MEDS: FLUOXETINE HCL 10 MG CAPSULE PO (07:43)
[2022-01-11] MEDS: SENNOSIDES/DOCUSATE TABLET 2 TAB PO ×2 (07:43→19:17)
[2022-01-11] MEDS: ACETAMINOPHEN 500 MG TABLET 1000 MG PO ×3 (07:43→19:17)
[2022-01-12] MEDS: OXYCODONE 5 MG TABLET PO ×4 (04:15→19:31)
[2022-01-12] MEDS: FLUOXETINE HCL 10 MG CAPSULE PO (07:12)
[2022-01-12] MEDS: ACETAMINOPHEN 500 MG TABLET 1000 MG PO ×3 (07:12→19:28)
[2022-01-12] MEDS: SENNOSIDES/DOCUSATE TABLET 2 TAB PO ×2 (07:12→19:31)
--- NOTE | 2022-01-12 21:28 | PC.NURSE ---
Pain: Resident reports pain in buttock while being turned in bed. No redness or open areas on buttock.
--- NOTE | 2022-01-12 23:42 | PC.NURSE ---
Addendum entered by Cecelia Wylie RN 01/13/22 00:09: All medications administered by licensed nurse. Original Note: WEEKLY CHARTING - WEEK 4: Vital signs reviewed with no significant deviations from defined parameters. Temporary and comprehensive care plan reviewed - no change. 2 documented episodes of yelling at staff in the last month. Currently receives fluoxetine 10mg daily for depression. No noted adverse effects. Has hx of cataracts. Has reading glasses, but does not use them. No noted visual impairment. Declines eye exams. Moderate cognitive impairment. Staff must anticipate needs and reorient as needed. Hears adequately at level of conversation. No medication changes in the last month. No change in health conditions.
[2022-01-13] MEDS: OXYCODONE 5 MG TABLET PO ×4 (04:03→19:09)
--- NOTE | 2022-01-13 06:57 | PC.NURSE ---
Week #4: Care plan reviewed, no changes made. Nothing added to temporary care plan. No changes noted in communication, hearing, vision, or orientation. Resident does verbalize need. Staff also anticipate needs. Has history of cataracts. No longer goes out for annual checks. No outward outward visual deficits noted. Does not wear glasses. Hears fine. Cognition is impaired r/t dementia. Chronic health condition stable. Vital signs reviewed, no concerns. Is not able to self administer medications. Mood/Behavior: No issues the past month. Continues on Prozac 10 mg daily with no adverse effects noted. No change in medication.
[2022-01-13] MEDS: ACETAMINOPHEN 500 MG TABLET 1000 MG PO ×3 (07:13→19:09)
[2022-01-13] MEDS: SENNOSIDES/DOCUSATE TABLET 2 TAB PO ×2 (07:14→19:09)
[2022-01-13] MEDS: FLUOXETINE HCL 10 MG CAPSULE PO (07:14)
[2022-01-14] MEDS: OXYCODONE 5 MG TABLET PO ×4 (04:07→20:19)
[2022-01-14] MEDS: SENNOSIDES/DOCUSATE TABLET 2 TAB PO ×2 (07:05→20:19)
[2022-01-14] MEDS: ACETAMINOPHEN 500 MG TABLET 1000 MG PO ×3 (07:05→20:19)
[2022-01-14] MEDS: FLUOXETINE HCL 10 MG CAPSULE PO (07:05)
[2022-01-15] MEDS: OXYCODONE 5 MG TABLET PO ×4 (04:14→19:27)
[2022-01-15] MEDS: FLUOXETINE HCL 10 MG CAPSULE PO (07:08)
[2022-01-15] MEDS: ACETAMINOPHEN 500 MG TABLET 1000 MG PO ×3 (07:08→19:27)
[2022-01-15] MEDS: SENNOSIDES/DOCUSATE TABLET 2 TAB PO ×2 (07:08→19:27)
[2022-01-16] MEDS: OXYCODONE 5 MG TABLET PO ×4 (04:05→19:32)
[2022-01-16] MEDS: ACETAMINOPHEN 500 MG TABLET 1000 MG PO ×3 (07:05→19:32)
[2022-01-16] MEDS: SENNOSIDES/DOCUSATE TABLET 2 TAB PO ×2 (07:05→19:32)
[2022-01-16] MEDS: FLUOXETINE HCL 10 MG CAPSULE PO (07:05)
[2022-01-17] MEDS: OXYCODONE 5 MG TABLET PO ×4 (04:10→19:15)
[2022-01-17] MEDS: ACETAMINOPHEN 500 MG TABLET 1000 MG PO ×3 (07:06→19:15)
[2022-01-17] MEDS: FLUOXETINE HCL 10 MG CAPSULE PO (07:07)
[2022-01-17] MEDS: SENNOSIDES/DOCUSATE TABLET 2 TAB PO ×2 (07:07→19:15)
[2022-01-17 10:10] VITALS: BP 122/74; PULSE 63; RESP 20; TEMP 36.2; O2SAT 98; BMI 29.5
[2022-01-18] MEDS: OXYCODONE 5 MG TABLET PO ×4 (04:15→19:17)
[2022-01-18] MEDS: ACETAMINOPHEN 500 MG TABLET 1000 MG PO ×3 (07:30→19:17)
[2022-01-18] MEDS: FLUOXETINE HCL 10 MG CAPSULE PO (07:30)
[2022-01-18] MEDS: SENNOSIDES/DOCUSATE TABLET 2 TAB PO ×2 (07:30→19:17)
[2022-01-19] MEDS: OXYCODONE 5 MG TABLET PO ×5 (00:25→19:43)
--- NOTE | 2022-01-19 01:28 | PC.NURSE ---
PAIN: Resident c/o pain in bilateral feet. Attempted repositioning and application of warm towel without effect. PRN oxycodone administered per order at 0025. PRN administration was effective. Resident is sleeping soundly at this time.
[2022-01-19] MEDS: ACETAMINOPHEN 500 MG TABLET 1000 MG PO ×3 (07:13→19:42)
[2022-01-19] MEDS: SENNOSIDES/DOCUSATE TABLET 2 TAB PO ×2 (07:14→19:43)
[2022-01-19] MEDS: FLUOXETINE HCL 10 MG CAPSULE PO (07:14)
[2022-01-20] MEDS: OXYCODONE 5 MG TABLET PO ×4 (04:40→19:03)
[2022-01-20] MEDS: SENNOSIDES/DOCUSATE TABLET 2 TAB PO ×2 (07:59→19:03)
[2022-01-20] MEDS: FLUOXETINE HCL 10 MG CAPSULE PO (07:59)
[2022-01-20] MEDS: ACETAMINOPHEN 500 MG TABLET 1000 MG PO ×3 (07:59→19:03)
[2022-01-21] MEDS: OXYCODONE 5 MG TABLET PO ×4 (04:31→19:19)
[2022-01-21] MEDS: SENNOSIDES/DOCUSATE TABLET 2 TAB PO ×2 (07:03→19:20)
[2022-01-21] MEDS: ACETAMINOPHEN 500 MG TABLET 1000 MG PO ×3 (07:03→19:19)
[2022-01-21] MEDS: FLUOXETINE HCL 10 MG CAPSULE PO (07:03)
[2022-01-22] MEDS: OXYCODONE 5 MG TABLET PO ×4 (04:35→19:08)
[2022-01-22] MEDS: SENNOSIDES/DOCUSATE TABLET 2 TAB PO ×2 (07:33→19:08)
[2022-01-22] MEDS: ACETAMINOPHEN 500 MG TABLET 1000 MG PO ×3 (07:33→19:08)
[2022-01-22] MEDS: FLUOXETINE HCL 10 MG CAPSULE PO (07:33)
[2022-01-23] MEDS: OXYCODONE 5 MG TABLET PO ×4 (04:14→20:08)
[2022-01-23] MEDS: ACETAMINOPHEN 500 MG TABLET 1000 MG PO ×3 (07:09→20:07)
[2022-01-23] MEDS: FLUOXETINE HCL 10 MG CAPSULE PO (07:10)
[2022-01-23] MEDS: SENNOSIDES/DOCUSATE TABLET 2 TAB PO ×2 (07:10→20:08)
[2022-01-24] MEDS: OXYCODONE 5 MG TABLET PO ×4 (04:26→19:27)
[2022-01-24] MEDS: FLUOXETINE HCL 10 MG CAPSULE PO (07:25)
[2022-01-24] MEDS: SENNOSIDES/DOCUSATE TABLET 2 TAB PO ×2 (07:25→19:27)
[2022-01-24] MEDS: ACETAMINOPHEN 500 MG TABLET 1000 MG PO ×3 (07:25→19:24)
[2022-01-24 09:30] VITALS: BMI 29.4
[2022-01-24 10:38] VITALS: BP 110/60; PULSE 64; RESP 20; TEMP 36.4; O2SAT 98
[2022-01-25] MEDS: OXYCODONE 5 MG TABLET PO ×4 (04:21→19:24)
[2022-01-25] MEDS: ACETAMINOPHEN 500 MG TABLET 1000 MG PO ×3 (07:49→19:24)
[2022-01-25] MEDS: SENNOSIDES/DOCUSATE TABLET 2 TAB PO ×2 (07:50→19:24)
[2022-01-25] MEDS: FLUOXETINE HCL 10 MG CAPSULE PO (07:50)
[2022-01-26] MEDS: OXYCODONE 5 MG TABLET PO ×4 (04:29→19:40)
[2022-01-26] MEDS: ACETAMINOPHEN 500 MG TABLET 1000 MG PO ×3 (07:51→19:39)
[2022-01-26] MEDS: SENNOSIDES/DOCUSATE TABLET 2 TAB PO ×2 (07:51→19:40)
[2022-01-26] MEDS: FLUOXETINE HCL 10 MG CAPSULE PO (07:51)
--- NOTE | 2022-01-27 01:21 | PC.NURSE ---
WEEKLY CHARTING - WEEK 1: Vital signs reviewed with occasional slight elevations. Temporary and comprehensive care plan reviewed with no change. Has hx of chronic pain, mainly in lower extremities. Receives acetaminophen 1000mg TID and oxycodone 5mg QID & Q4 hours PRN. PRN dosing has been used x1 in last 30 days. Prefers no male caregivers. Requires total assist of 1-2 for dressing, grooming, and bathing. Receives bed baths only. Total assist for oral care. Regular diet, regular texture, with thin liquids. Able to feed self after set-up. Staff assist PRN. Staff provide supervision and encouragement at meals. Weight is stable.
[2022-01-27] MEDS: OXYCODONE 5 MG TABLET PO ×4 (04:38→19:30)
--- NOTE | 2022-01-27 07:02 | PC.NURSE ---
Week #1: Comprehensive care plan reviewed, no changes made. Nothing added to temporary care plan. Resident needs 1-2 assist with dressing and bathing. Bed bath only. One assist with grooming and oral cares. Feed self after set up. Needs partial assist as needed. Is on regular diet, thin liquids. No problems with chewing or swallowing noted. Receives supplement @ noon. Vital signs reviewed, with occasional slight, elevated BP's. Continue with weekly monitoring. Pain: Has chronic pain controlled with Tylenol 1000mg TID, Oxycodone QID & Q4H PRN and has used occasionally with relief. Is able to tell when in pain and staff also anticipates.
[2022-01-27] MEDS: ACETAMINOPHEN 500 MG TABLET 1000 MG PO ×3 (07:27→19:30)
[2022-01-27] MEDS: SENNOSIDES/DOCUSATE TABLET 2 TAB PO ×2 (07:28→19:30)
[2022-01-27] MEDS: FLUOXETINE HCL 10 MG CAPSULE PO (07:28)
--- NOTE | 2022-01-27 15:09 | PC.SOCIAL ---
Phone call to resident's daughter, Carol Hutchinson. Informed Carol that resident's winter coat was not found. Asked Carol if she would like information to file a grievance. Carol stated that she does not want to file a grievance, she just wants to make sure staff is aware that items are missing as it seems clothes come up missing often. Carol informed that she bought a new winter coat for resident for Pierre so she is not worried. Informed Carol if she had any further concerns she can discuss with social work department.
[2022-01-28] MEDS: OXYCODONE 5 MG TABLET PO ×4 (04:14→20:33)
[2022-01-28] MEDS: ACETAMINOPHEN 500 MG TABLET 1000 MG PO ×3 (07:04→20:31)
[2022-01-28] MEDS: SENNOSIDES/DOCUSATE TABLET 2 TAB PO ×2 (07:05→20:33)
[2022-01-28] MEDS: FLUOXETINE HCL 10 MG CAPSULE PO (07:05)
[2022-01-29] MEDS: OXYCODONE 5 MG TABLET PO ×4 (04:04→19:50)
[2022-01-29] MEDS: ACETAMINOPHEN 500 MG TABLET 1000 MG PO ×3 (07:47→19:48)
[2022-01-29] MEDS: SENNOSIDES/DOCUSATE TABLET 2 TAB PO ×2 (07:47→19:50)
[2022-01-29] MEDS: FLUOXETINE HCL 10 MG CAPSULE PO (07:47)
[2022-01-30] MEDS: OXYCODONE 5 MG TABLET PO ×4 (04:02→19:29)
[2022-01-30] MEDS: SENNOSIDES/DOCUSATE TABLET 2 TAB PO ×2 (07:13→19:29)
[2022-01-30] MEDS: ACETAMINOPHEN 500 MG TABLET 1000 MG PO ×3 (07:13→19:27)
[2022-01-30] MEDS: FLUOXETINE HCL 10 MG CAPSULE PO (07:13)
[2022-01-31] MEDS: OXYCODONE 5 MG TABLET PO ×4 (04:17→19:51)
[2022-01-31] MEDS: ACETAMINOPHEN 500 MG TABLET 1000 MG PO ×3 (07:20→19:51)
[2022-01-31] MEDS: SENNOSIDES/DOCUSATE TABLET 2 TAB PO ×2 (07:20→19:51)
[2022-01-31] MEDS: FLUOXETINE HCL 10 MG CAPSULE PO (07:20)
[2022-01-31 09:32] VITALS: BP 131/85; PULSE 70; RESP 20; TEMP 36.4; O2SAT 95; BMI 29.5
--- NOTE | 2022-01-31 10:34 | PC.NURSE ---
podiatry: Resident was seen by in-house director of search engine marketing on 01/30/22. No order.
[2022-02-01] MEDS: OXYCODONE 5 MG TABLET PO ×4 (04:23→19:03)
[2022-02-01] MEDS: SENNOSIDES/DOCUSATE TABLET 2 TAB PO ×2 (07:40→19:03)
[2022-02-01] MEDS: FLUOXETINE HCL 10 MG CAPSULE PO (07:40)
[2022-02-01] MEDS: ACETAMINOPHEN 500 MG TABLET 1000 MG PO ×3 (07:40→19:03)
--- NOTE | 2022-02-01 12:14 | PC.PHA ---
MEDICATION REVIEW: MEDICATION MONITORING: Fluoxetine 10 mg daily, no GDR in process, patient failed GDR September of 2021 Other medications for management of MS reviewed, no changes to said meds since last review. Medications listed in EMR under medication history which is under medication tab top of chart page layout. IRREGULARITY OR COMMENTS: Per nursing and provider notes patient continues a gradual clinical decline. I also agree with providers EMR note that another attempt to GDR of fluoxetine is clinically contraindicated at this time in the 4th 2021. SUGGESTED COURSE OF ACTION: No medication recommendations in January.
[2022-02-02] MEDS: OXYCODONE 5 MG TABLET PO ×4 (04:35→20:01)
[2022-02-02] MEDS: ACETAMINOPHEN 500 MG TABLET 1000 MG PO ×3 (07:14→20:01)
[2022-02-02] MEDS: FLUOXETINE HCL 10 MG CAPSULE PO (07:14)
[2022-02-02] MEDS: SENNOSIDES/DOCUSATE TABLET 2 TAB PO ×2 (07:15→20:01)
--- NOTE | 2022-02-02 13:06 | PC.NURSE ---
Order: Discontinue Prozac 10mg daily.
--- NOTE | 2022-02-03 02:30 | PC.NURSE ---
WEEKLY CHARTING - WEEK 2: Vital signs reviewed with no concerns. Temporary and comprehensive care plan reviewed - no change. Requires 2 staff assist with full mechanical lift for transfers. 1-2 assist for bed mobility and repositioning. Half side rails bilaterally for repositioning. Total assist to propel w/c. At high risk for falls per fall risk assessment.
[2022-02-03] MEDS: OXYCODONE 5 MG TABLET PO ×4 (04:30→19:45)
[2022-02-03] MEDS: SENNOSIDES/DOCUSATE TABLET 2 TAB PO ×2 (07:20→19:45)
[2022-02-03] MEDS: ACETAMINOPHEN 500 MG TABLET 1000 MG PO ×3 (07:20→19:45)
--- NOTE | 2022-02-03 10:42 | PC.NURSE ---
Week #2 - Mobility: Comprehensive care plan reviewed, no changes made. Nothing added to temporary care plan. Resident is non ambulatory. Transfers with 2 assists using the margo lift. Has a tilt in space wheelchair propelled by staff to/fro all destinations. 1-2 assists with bed /chair positioning. Top side rails up to aid for positioning/bed mobility. No alarms. Vital signs reviewed, no concerns. Fall: No falls the past month. Is a high fall risk according to assessment done on 12/15/21.
[2022-02-04] MEDS: OXYCODONE 5 MG TABLET PO ×4 (03:37→20:30)
[2022-02-04] MEDS: ACETAMINOPHEN 500 MG TABLET 1000 MG PO ×3 (07:57→20:30)
[2022-02-04] MEDS: SENNOSIDES/DOCUSATE TABLET 2 TAB PO ×2 (07:57→20:30)
[2022-02-05] MEDS: OXYCODONE 5 MG TABLET PO ×4 (04:02→19:53)
[2022-02-05] MEDS: ACETAMINOPHEN 500 MG TABLET 1000 MG PO ×3 (07:24→19:52)
[2022-02-05] MEDS: SENNOSIDES/DOCUSATE TABLET 2 TAB PO ×2 (07:24→19:53)
[2022-02-06] MEDS: OXYCODONE 5 MG TABLET PO ×4 (04:31→19:42)
[2022-02-06] MEDS: ACETAMINOPHEN 500 MG TABLET 1000 MG PO ×3 (07:23→19:39)
[2022-02-06] MEDS: SENNOSIDES/DOCUSATE TABLET 2 TAB PO ×2 (07:24→19:42)
[2022-02-07] MEDS: OXYCODONE 5 MG TABLET PO ×4 (04:14→19:41)
[2022-02-07] MEDS: ACETAMINOPHEN 500 MG TABLET 1000 MG PO ×3 (07:22→19:38)
[2022-02-07] MEDS: SENNOSIDES/DOCUSATE TABLET 2 TAB PO ×2 (07:22→19:41)
[2022-02-07 11:13] VITALS: BP 115/65; PULSE 60; TEMP 36.4; O2SAT 98
[2022-02-07 11:49] VITALS: BMI 29.4
[2022-02-08] MEDS: OXYCODONE 5 MG TABLET PO ×4 (04:18→19:05)
[2022-02-08] MEDS: SENNOSIDES/DOCUSATE TABLET 2 TAB PO ×2 (07:59→19:05)
[2022-02-08] MEDS: ACETAMINOPHEN 500 MG TABLET 1000 MG PO ×3 (07:59→19:04)
[2022-02-09] MEDS: OXYCODONE 5 MG TABLET PO ×4 (04:31→19:18)
[2022-02-09] MEDS: ACETAMINOPHEN 500 MG TABLET 1000 MG PO ×3 (07:38→19:18)
[2022-02-09] MEDS: SENNOSIDES/DOCUSATE TABLET 2 TAB PO ×2 (07:39→19:18)
--- NOTE | 2022-02-10 01:51 | PC.NURSE ---
WEEKLY CHARTING - WEEK 3: Vital signs reviewed with no concerns. Temporary and comprehensive care plan reviewed - no change. No current documented skin integrity concerns. Is incontinent of bowel and bladder. Wears large brief. Is checked and changed with 1-2 staff assist on first and last rounds during the night. Total assist for enriqueta-care and clothing adjustment.
[2022-02-10] MEDS: OXYCODONE 5 MG TABLET PO ×4 (04:09→19:17)
[2022-02-10] MEDS: ACETAMINOPHEN 500 MG TABLET 1000 MG PO ×3 (07:39→19:17)
[2022-02-10] MEDS: SENNOSIDES/DOCUSATE TABLET 2 TAB PO ×2 (07:39→19:18)
--- NOTE | 2022-02-10 21:59 | PC.NURSE ---
Week #3- Toileting: Care plan reviewed, no changes made. Nothing added to temporary care plan. Resident is incontinent of bowel and bladder. Does not use the toilet. Is checked and changed in bed every 2 hours and PRN. Needs 1-2 assists to manage pad, pericares, and clothing. Vital signs reviewed and at times has low and high values. Continue to monitor and refer to FIELD ARTILLERY OPERATIONS SPECIALIST/MD when needed. Skin: No issues at this time. Skin is routinely checked during cares and on bath day.
[2022-02-11] MEDS: OXYCODONE 5 MG TABLET PO ×4 (04:09→19:22)
[2022-02-11] MEDS: ACETAMINOPHEN 500 MG TABLET 1000 MG PO ×3 (07:34→19:22)
[2022-02-11] MEDS: SENNOSIDES/DOCUSATE TABLET 2 TAB PO ×2 (07:34→19:22)
[2022-02-12] MEDS: OXYCODONE 5 MG TABLET PO ×4 (04:18→18:45)
[2022-02-12] MEDS: ACETAMINOPHEN 500 MG TABLET 1000 MG PO ×3 (07:38→18:44)
[2022-02-12] MEDS: SENNOSIDES/DOCUSATE TABLET 2 TAB PO ×2 (07:39→18:45)
[2022-02-13] MEDS: OXYCODONE 5 MG TABLET PO ×4 (04:10→19:06)
[2022-02-13] MEDS: SENNOSIDES/DOCUSATE TABLET 2 TAB PO ×2 (07:24→19:06)
[2022-02-13] MEDS: ACETAMINOPHEN 500 MG TABLET 1000 MG PO ×3 (07:24→19:06)
[2022-02-14] MEDS: OXYCODONE 5 MG TABLET PO ×4 (05:53→20:01)
[2022-02-14 07:00] VITALS: BP 126/63; PULSE 62; RESP 16; TEMP 36.4; O2SAT 97; BMI 30.1
[2022-02-14] MEDS: ACETAMINOPHEN 500 MG TABLET 1000 MG PO ×3 (07:13→20:00)
[2022-02-14] MEDS: SENNOSIDES/DOCUSATE TABLET 2 TAB PO ×2 (07:13→20:01)
--- NOTE | 2022-02-14 11:59 | PC.SPIRITC ---
I provided visit for support, connection, and reading of Jainism devotion in lieu of oracle fusion consultant not being able to lead lutheran today.
[2022-02-15] MEDS: OXYCODONE 5 MG TABLET PO ×4 (04:22→19:06)
[2022-02-15] MEDS: ACETAMINOPHEN 500 MG TABLET 1000 MG PO ×3 (07:41→19:06)
[2022-02-15] MEDS: SENNOSIDES/DOCUSATE TABLET 2 TAB PO ×2 (07:41→19:06)
[2022-02-16] MEDS: OXYCODONE 5 MG TABLET PO ×4 (04:20→20:31)
[2022-02-16] MEDS: ACETAMINOPHEN 500 MG TABLET 1000 MG PO ×3 (07:21→20:31)
[2022-02-16] MEDS: SENNOSIDES/DOCUSATE TABLET 2 TAB PO ×2 (07:21→20:31)
--- NOTE | 2022-02-17 00:39 | PC.NURSE ---
WEEKLY CHARTING- WEEK 4: Vital signs reviewed. Temporary and comprehensive care plan reviewed. Care plan updated to reflect discontinued fluoxetine. No documented behaviors in the last month. Not currently on any psychotropic medications. Is able to communicate simple needs. Staff also anticipate needs. No noted hearing or visual deficits. Has moderate cognitive impairment. Fluoxetine was discontinued on 02/02. No noted change in mood/behavior at this time. All medications administered by licensed nurse. No change in health condition.
[2022-02-17] MEDS: OXYCODONE 5 MG TABLET PO ×4 (04:23→20:35)
[2022-02-17] MEDS: ACETAMINOPHEN 500 MG TABLET 1000 MG PO ×3 (07:20→20:34)
[2022-02-17] MEDS: SENNOSIDES/DOCUSATE TABLET 2 TAB PO ×2 (07:20→20:35)
--- NOTE | 2022-02-17 21:51 | PC.NURSE ---
Weekly charting for Week#4: Noted resident had Prozac discontinued on 02-02-22 with no reports of increased behaviors. No other changes noted to temporary or comprehensive care plans. No changes to her communication skills,hearing or vision. also no changes to her orientation. No changes to her chronic health condition.
[2022-02-18] MEDS: OXYCODONE 5 MG TABLET PO ×4 (04:40→20:44)
[2022-02-18] MEDS: SENNOSIDES/DOCUSATE TABLET 2 TAB PO ×2 (07:50→20:44)
[2022-02-18] MEDS: ACETAMINOPHEN 500 MG TABLET 1000 MG PO ×3 (07:50→20:44)
[2022-02-19] MEDS: OXYCODONE 5 MG TABLET PO ×4 (04:35→20:17)
[2022-02-19] MEDS: ACETAMINOPHEN 500 MG TABLET 1000 MG PO ×3 (07:03→20:16)
[2022-02-19] MEDS: SENNOSIDES/DOCUSATE TABLET 2 TAB PO ×2 (07:03→20:17)
[2022-02-20] MEDS: OXYCODONE 5 MG TABLET PO ×4 (04:22→19:13)
[2022-02-20] MEDS: SENNOSIDES/DOCUSATE TABLET 2 TAB PO ×2 (07:53→19:13)
[2022-02-20] MEDS: ACETAMINOPHEN 500 MG TABLET 1000 MG PO ×3 (07:53→19:13)
[2022-02-20 09:14] VITALS: TEMP 36.2; O2SAT 95
--- NOTE | 2022-02-20 13:28 | PC.NURSE ---
Addendum entered by Catherine Pacheco RN 02/20/22 19:28: 02/18/22: Residents daughter Imani gave consent for COVID testing until outbreak status is complete Original Note: COVID OUTBREAK TESTING: Resident provided verbal consent for outbreak COVID testing. Resident is currently asymptomatic. Resident/family will be notified only if resident is positive.
[2022-02-20 17:01] VITALS: TEMP 36.8; O2SAT 99
[2022-02-20 17:20] LABS: SARS PCR* Negative SARS-CoV-2 (Negative)
[2022-02-20 23:00] VITALS: TEMP 36.3; O2SAT 98
[2022-02-21] MEDS: OXYCODONE 5 MG TABLET PO ×4 (04:26→19:30)
[2022-02-21 07:00] VITALS: TEMP 36.4; O2SAT 98
[2022-02-21] MEDS: SENNOSIDES/DOCUSATE TABLET 2 TAB PO ×2 (07:27→19:30)
[2022-02-21] MEDS: ACETAMINOPHEN 500 MG TABLET 1000 MG PO ×3 (07:27→19:30)
[2022-02-21] MEDS: polyethylene glycoL 238 GM BULK BOTTLE 17 GM PO (07:58)
[2022-02-21 10:51] VITALS: BP 154/62; PULSE 60; RESP 16; TEMP 36.4; O2SAT 98
[2022-02-21 15:00] VITALS: TEMP 36.9; O2SAT 98
--- NOTE | 2022-02-21 20:16 | PC.NURSE ---
Email sent to daughter Iamni in regards to information for Baclofen pump refill in May per her request so that she can make the appointment that works for her schedule. Will await a response back with date and time.
[2022-02-21 23:00] VITALS: TEMP 36.7; O2SAT 95
[2022-02-22] MEDS: OXYCODONE 5 MG TABLET PO ×4 (04:33→19:20)
[2022-02-22] MEDS: SENNOSIDES/DOCUSATE TABLET 2 TAB PO ×2 (07:17→19:20)
[2022-02-22] MEDS: ACETAMINOPHEN 500 MG TABLET 1000 MG PO ×3 (07:17→19:20)
[2022-02-22] MEDS: MAGNESIUM HYDROXIDE 30 ML ORAL.SUSP PO (07:32)
[2022-02-22 10:45] VITALS: TEMP 36.2; O2SAT 94
[2022-02-22 13:40] VITALS: BMI 29.8
[2022-02-22 15:00] VITALS: TEMP 36.4; O2SAT 95
[2022-02-22] MEDS: bisacodyL 10 MG SUPP.RECT PR (21:29)
[2022-02-22 23:00] VITALS: TEMP 36.8; O2SAT 94
[2022-02-23] MEDS: OXYCODONE 5 MG TABLET PO ×4 (04:22→19:13)
[2022-02-23] MEDS: ACETAMINOPHEN 500 MG TABLET 1000 MG PO ×3 (07:26→19:13)
[2022-02-23] MEDS: SENNOSIDES/DOCUSATE TABLET 2 TAB PO ×2 (07:26→19:13)
[2022-02-23] MEDS: polyethylene glycoL 238 GM BULK BOTTLE 17 GM PO (07:29)
[2022-02-23 10:44] VITALS: TEMP 36.2; O2SAT 93
--- NOTE | 2022-02-23 11:19 | PC.NURSE ---
Skin: Scab/callus outer aspect of right foot seen by PERIODONTIST & PHERESIS SPECIALIST. Order: Apply Mepilex for protection. Change weekly & PRN.
[2022-02-23 15:00] VITALS: TEMP 36.7; O2SAT 98
[2022-02-23 23:00] VITALS: TEMP 36.3; O2SAT 96
--- NOTE | 2022-02-24 02:37 | PC.NURSE ---
WEEKLY CHARTING - WEEK 1: Vital signs reviewed with no concerns. Temporary and comprehensive care plan reviewed - no change. Hx of chronic pain in lower extremities. Currently receives scheduled ES acetaminophen TID and oxycodone 5mg QID & Q4 hours PRN. Requires total assist of 1-2 staff with dressing, grooming, bathing, and oral care. Resident does not participate. Appetite is variable. Per staff report, appetite excellent at breakfast. No documented chewing or swallowing problems. Receives a regular diet. Requires assistance with meals. Staff initiate meals and encourage resident participation as able. Weight is stable. Receives nutritional supplement with lunch.
[2022-02-24] MEDS: OXYCODONE 5 MG TABLET PO ×4 (04:27→19:06)
--- NOTE | 2022-02-24 07:03 | PC.NURSE ---
Week #1- ADL's: Comprehensive care plan reviewed, no changes made. Nothing added to temporary care plan. Resident needs 1-2 assist with dressing and bathing. Bed bath only. One assist with grooming and oral cares. Needs partial assit with feeding. Staff initiate and encourage to feed self after set up. Is on regular diet, thin liquids. No problems with chewing or swallowing noted. Receives supplement @ noon. Vital signs reviewed, with occasional slight, elevated BP's. Continue with weekly monitoring. Pain: Has chronic lower extremities pain. Pain is controlled with Tylenol 1000mg TID, Oxycodone QID & Q4H PRN and has used occasionally with relief. Is able to tell when in pain and staff also anticipates.
[2022-02-24] MEDS: ACETAMINOPHEN 500 MG TABLET 1000 MG PO ×3 (08:01→19:06)
[2022-02-24] MEDS: SENNOSIDES/DOCUSATE TABLET 2 TAB PO ×2 (08:02→19:06)
[2022-02-24 10:37] VITALS: TEMP 36.3; O2SAT 94
[2022-02-24 15:00] VITALS: TEMP 36.1; O2SAT 97
[2022-02-24 23:00] VITALS: TEMP 36.4; O2SAT 95
[2022-02-25] MEDS: OXYCODONE 5 MG TABLET PO ×4 (04:28→20:15)
[2022-02-25] MEDS: SENNOSIDES/DOCUSATE TABLET 2 TAB PO ×2 (08:21→20:15)
[2022-02-25] MEDS: ACETAMINOPHEN 500 MG TABLET 1000 MG PO ×3 (08:21→20:15)
[2022-02-25 10:45] VITALS: TEMP 36.1; O2SAT 98
[2022-02-25 15:00] VITALS: TEMP 36.4; O2SAT 95
[2022-02-25 23:00] VITALS: TEMP 36.6; O2SAT 97
[2022-02-26] MEDS: OXYCODONE 5 MG TABLET PO ×4 (04:32→19:03)
[2022-02-26] MEDS: ACETAMINOPHEN 500 MG TABLET 1000 MG PO ×3 (07:01→19:02)
[2022-02-26] MEDS: SENNOSIDES/DOCUSATE TABLET 2 TAB PO ×2 (07:01→19:03)
[2022-02-26 10:43] VITALS: TEMP 36.6; O2SAT 93
[2022-02-26 16:36] VITALS: TEMP 36.6; O2SAT 93
[2022-02-26 23:00] VITALS: TEMP 35.6; O2SAT 98
[2022-02-27] MEDS: OXYCODONE 5 MG TABLET PO ×4 (04:04→19:44)
[2022-02-27] MEDS: ACETAMINOPHEN 500 MG TABLET 1000 MG PO ×3 (07:23→19:36)
[2022-02-27] MEDS: SENNOSIDES/DOCUSATE TABLET 2 TAB PO ×2 (07:24→19:44)
[2022-02-27 10:58] VITALS: TEMP 36.6; O2SAT 96
[2022-02-27 21:14] VITALS: TEMP 36.4; O2SAT 94
[2022-02-27 22:02] LABS: SARS PCR* Negative SARS-CoV-2 (Negative)
[2022-02-27 23:00] VITALS: TEMP 36.3; O2SAT 96
[2022-02-28] MEDS: OXYCODONE 5 MG TABLET PO ×4 (04:04→19:22)
[2022-02-28] MEDS: ACETAMINOPHEN 500 MG TABLET 1000 MG PO ×3 (07:20→19:21)
[2022-02-28] MEDS: SENNOSIDES/DOCUSATE TABLET 2 TAB PO ×2 (07:20→19:22)
--- NOTE | 2022-02-28 11:41 | PC.NURSE ---
Recert Visit: Resident seen by HOUSE WIRER HELPERRenuka. Orders reviewed and renewed of 75 days without changes.
[2022-02-28 12:07] VITALS: BP 130/70; PULSE 76; RESP 20; TEMP 37; O2SAT 95
[2022-02-28 15:00] VITALS: TEMP 37; O2SAT 99
[2022-02-28 23:00] VITALS: TEMP 36.4; O2SAT 96
[2022-03-01] MEDS: OXYCODONE 5 MG TABLET PO ×4 (04:40→19:53)
[2022-03-01] MEDS: SENNOSIDES/DOCUSATE TABLET 2 TAB PO ×2 (07:49→19:53)
[2022-03-01] MEDS: ACETAMINOPHEN 500 MG TABLET 1000 MG PO ×3 (07:49→19:53)
[2022-03-01 13:33] VITALS: TEMP 36.8; O2SAT 96
[2022-03-01 21:06] VITALS: TEMP 36.3; O2SAT 99
[2022-03-01 23:00] VITALS: TEMP 37.1; O2SAT 93
[2022-03-02] MEDS: OXYCODONE 5 MG TABLET PO ×4 (04:49→19:12)
[2022-03-02] MEDS: SENNOSIDES/DOCUSATE TABLET 2 TAB PO ×2 (07:11→19:12)
[2022-03-02] MEDS: ACETAMINOPHEN 500 MG TABLET 1000 MG PO ×3 (07:11→19:12)
[2022-03-02 10:13] VITALS: TEMP 36.6; O2SAT 96
[2022-03-02 15:00] VITALS: TEMP 36.3; O2SAT 99
[2022-03-02 23:00] VITALS: TEMP 36.6; O2SAT 97
--- NOTE | 2022-03-03 03:06 | PC.NURSE ---
WEEKLY CHARTING - WEEK 2: Vital signs reviewed. Temporary and comprehensive care plan reviewed - no change. Requires 2 assist with full mechanical lift and large sling for all transfers. Requires total assist of 1-2 with bed mobility. 1/4 side rails bilaterally up during cares to assist with mobility. Staff propel w/c to all destinations. Per most recent fall risk assessment, resident is at high risk for falls. Fall interventions include: bed in low position and call light in reach.
[2022-03-03] MEDS: OXYCODONE 5 MG TABLET PO ×4 (04:38→19:19)
--- NOTE | 2022-03-03 06:59 | PC.NURSE ---
Week #2 - Mobility: Comprehensive care plan reviewed, no changes made. Nothing added to temporary care plan. Resident is non ambulatory. Transfers with 2 assists using the margo lift & a large sling. Has a tilt in space wheelchair propelled by staff to/fro all destinations. 1-2 assists with bed /chair positioning. Top side rails up for bed mobility & comfort. Up only during cares. No alarms. Vital signs reviewed, no concerns. Fall: No falls the past month. Is a high fall risk according to assessment done on 10/06/21.
[2022-03-03] MEDS: SENNOSIDES/DOCUSATE TABLET 2 TAB PO ×2 (07:15→19:19)
[2022-03-03] MEDS: ACETAMINOPHEN 500 MG TABLET 1000 MG PO ×3 (07:15→19:19)
[2022-03-03 10:38] VITALS: TEMP 35.8; O2SAT 96
[2022-03-03 15:00] VITALS: TEMP 36.1; O2SAT 100
[2022-03-03 23:00] VITALS: TEMP 36.8; O2SAT 94
[2022-03-04] MEDS: OXYCODONE 5 MG TABLET PO ×4 (04:36→19:48)
[2022-03-04 07:00] VITALS: TEMP 36.8; O2SAT 96
[2022-03-04] MEDS: ACETAMINOPHEN 500 MG TABLET 1000 MG PO ×3 (07:04→19:48)
[2022-03-04] MEDS: SENNOSIDES/DOCUSATE TABLET 2 TAB PO ×2 (07:04→19:48)
--- NOTE | 2022-03-04 13:33 | PC.NURSE ---
Incident : MISTY reported that resident bumped her head (R) side to night stand table when MISTY's changing her brief. Resident denied pain and no bruises or swelling noted at this time. Will continues to monitor.
--- NOTE | 2022-03-04 13:48 | PC.NURSE ---
Incident : MISTY reported that resident bumped her (R) forehead to night stand table when MISTY's changing her brief.? Resident denied pain and no bruises or swelling noted at this time. Will continues to monitor.
[2022-03-04 15:00] VITALS: TEMP 36.9; O2SAT 98
[2022-03-04 23:00] VITALS: TEMP 36.8; O2SAT 96
[2022-03-05] MEDS: OXYCODONE 5 MG TABLET PO ×4 (04:43→19:37)
[2022-03-05 07:00] VITALS: TEMP 36.3; O2SAT 97
[2022-03-05] MEDS: SENNOSIDES/DOCUSATE TABLET 2 TAB PO ×2 (07:24→19:37)
[2022-03-05] MEDS: ACETAMINOPHEN 500 MG TABLET 1000 MG PO ×3 (07:24→19:37)
[2022-03-05 15:00] VITALS: TEMP 36.7; O2SAT 98
--- NOTE | 2022-03-05 17:03 | PC.SPIRITC ---
Geologic Technician provided supportive visit to resident.
[2022-03-05 23:00] VITALS: TEMP 36.8; O2SAT 94
[2022-03-06] MEDS: OXYCODONE 5 MG TABLET PO ×4 (04:36→20:24)
[2022-03-06] MEDS: ACETAMINOPHEN 500 MG TABLET 1000 MG PO ×3 (07:03→20:24)
[2022-03-06] MEDS: SENNOSIDES/DOCUSATE TABLET 2 TAB PO ×2 (07:03→20:24)
[2022-03-06 10:43] VITALS: TEMP 36.2; O2SAT 94
--- NOTE | 2022-03-06 11:57 | PC.NURSE ---
COVID OUTBREAK TESTING (Antigen): Resident provided verbal consent for outbreak COVID testing. Resident is currently asymptomatic.? Resident/family will be notified only if resident is positive.
[2022-03-06 12:23] LABS: SARS PCR* Negative SARS-CoV-2 (Negative)
[2022-03-06 21:33] VITALS: TEMP 35.7; O2SAT 95
[2022-03-06 23:00] VITALS: TEMP 36.7; O2SAT 96
[2022-03-07] MEDS: OXYCODONE 5 MG TABLET PO ×4 (04:30→19:58)
[2022-03-07] MEDS: SENNOSIDES/DOCUSATE TABLET 2 TAB PO ×2 (07:34→19:58)
[2022-03-07] MEDS: ACETAMINOPHEN 500 MG TABLET 1000 MG PO ×3 (07:34→19:58)
--- NOTE | 2022-03-07 11:00 | PC.NURSE ---
Right Lateral foot near 5th toe: Scab 5mm x 3 mm. No s/s infection. Assessed with DARYN Grayson. Cleansed with wound cleanser and covered with Mepilex. No change in tx at this time.
[2022-03-07 11:17] VITALS: BP 127/60; PULSE 60; RESP 20; TEMP 36.2; O2SAT 60; O2SAT 98
[2022-03-07 13:30] VITALS: BMI 30.1
[2022-03-07 15:48] VITALS: BMI 30.1
[2022-03-07 21:11] VITALS: TEMP 36.3; O2SAT 97
[2022-03-07 23:00] VITALS: TEMP 36.8; O2SAT 97
[2022-03-08] MEDS: OXYCODONE 5 MG TABLET PO ×4 (04:03→19:53)
[2022-03-08 07:00] VITALS: TEMP 36.3; O2SAT 96
[2022-03-08] MEDS: SENNOSIDES/DOCUSATE TABLET 2 TAB PO ×2 (07:05→19:53)
[2022-03-08] MEDS: ACETAMINOPHEN 500 MG TABLET 1000 MG PO ×3 (07:05→19:52)
--- NOTE | 2022-03-08 07:39 | PC.PHA ---
MEDICATION REVIEW 10MEDICATION MONITORING: No psychopharmacotherapeutics prescribed at time of February review. Fluoxetine 10 mg daily was discontinued post January pharmacist review. IRREGULARITY/COMMENTS: Patient continues on baclofen pump for MS and same pain medication and bowel medication regimen. SUGGESTED COURSE OF ACTION: No recommendations at time of this review.
[2022-03-08 15:00] VITALS: TEMP 36.3; O2SAT 99
[2022-03-08 23:00] VITALS: TEMP 36.9; O2SAT 95
[2022-03-09] MEDS: OXYCODONE 5 MG TABLET PO ×4 (04:05→19:24)
[2022-03-09 07:00] VITALS: TEMP 36.4; O2SAT 98
[2022-03-09] MEDS: SENNOSIDES/DOCUSATE TABLET 2 TAB PO ×2 (07:29→19:24)
[2022-03-09] MEDS: ACETAMINOPHEN 500 MG TABLET 1000 MG PO ×3 (07:29→19:24)
[2022-03-09 15:00] VITALS: TEMP 36.9; O2SAT 98
[2022-03-09 23:00] VITALS: TEMP 36.8; O2SAT 96
--- NOTE | 2022-03-10 02:28 | PC.NURSE ---
WEEKLY CHARTING - WEEK 3: Vital signs reviewed - no concerns. Temporary and comprehensive care plan reviewed with no changes. Currently has a treatment of Mepilex Border applied to dark area on right lateral foot. Is changed weekly and PRN. Wears heel protectors at all times in bed and w/c. Is incontinent of bowel and bladder. Wears large brief. Requires total assist of 1-2 with toileting needs. Is checked and changed on 1st and 3rd rounds at night.
[2022-03-10] MEDS: OXYCODONE 5 MG TABLET PO ×4 (04:25→19:29)
--- NOTE | 2022-03-10 06:52 | PC.NURSE ---
Week #3-Toileting: Comprehensive care plan reviewed, no changes made. Nothing added to temporary care plan. Resident does not use the toilet. Is checked and changed every 2 hours and PRN with 1-2 assists.Wears large briefs. All toileting needs including pads, enriqueta cares and clothing managed by staff. Vital signs reviewed, no concerns. Continue with weekly monitoring. Skin: (R) outer foot has a scab/callus monitored by BINDING BENCH WORKER. Mepilex in place for protection, change weekly & PRN. Heel boots when in bed & wheelchair. Skin is checked during cares and on bath day.
[2022-03-10] MEDS: ACETAMINOPHEN 500 MG TABLET 1000 MG PO ×3 (07:19→19:29)
[2022-03-10] MEDS: SENNOSIDES/DOCUSATE TABLET 2 TAB PO ×2 (07:19→19:29)
[2022-03-10 10:25] VITALS: TEMP 36.3; O2SAT 99
[2022-03-10 15:00] VITALS: TEMP 36; O2SAT 98
[2022-03-10 23:00] VITALS: TEMP 37.2; O2SAT 97
[2022-03-11] MEDS: OXYCODONE 5 MG TABLET PO ×4 (04:19→19:14)
[2022-03-11] MEDS: SENNOSIDES/DOCUSATE TABLET 2 TAB PO ×2 (07:14→19:14)
[2022-03-11] MEDS: ACETAMINOPHEN 500 MG TABLET 1000 MG PO ×3 (07:14→19:14)
[2022-03-11 10:37] VITALS: TEMP 36.2; O2SAT 96
[2022-03-11 15:00] VITALS: TEMP 36.6; O2SAT 99
[2022-03-11 23:00] VITALS: TEMP 36.6; O2SAT 98
[2022-03-12] MEDS: OXYCODONE 5 MG TABLET PO ×4 (03:26→19:17)
[2022-03-12] MEDS: SENNOSIDES/DOCUSATE TABLET 2 TAB PO ×2 (07:07→19:17)
[2022-03-12] MEDS: polyethylene glycoL 238 GM BULK BOTTLE 17 GM PO (07:07)
[2022-03-12] MEDS: ACETAMINOPHEN 500 MG TABLET 1000 MG PO ×3 (07:07→19:17)
[2022-03-12 10:06] VITALS: TEMP 36.4; O2SAT 95
[2022-03-12 15:00] VITALS: TEMP 36.3; O2SAT 97
[2022-03-12 23:00] VITALS: TEMP 36.6; O2SAT 95
[2022-03-13] MEDS: OXYCODONE 5 MG TABLET PO ×4 (04:32→20:29)
[2022-03-13] MEDS: ACETAMINOPHEN 500 MG TABLET 1000 MG PO ×3 (07:41→20:29)
[2022-03-13] MEDS: SENNOSIDES/DOCUSATE TABLET 2 TAB PO ×2 (07:41→20:29)
[2022-03-13 13:39] VITALS: TEMP 36.3; O2SAT 96
[2022-03-13 15:31] LABS: SARS PCR* Negative SARS-CoV-2 (Negative)
[2022-03-13 21:10] VITALS: TEMP 36.6; O2SAT 98
[2022-03-13 23:00] VITALS: TEMP 36.3; O2SAT 97
[2022-03-14] MEDS: OXYCODONE 5 MG TABLET PO ×4 (04:37→19:31)
[2022-03-14] MEDS: ACETAMINOPHEN 500 MG TABLET 1000 MG PO ×3 (07:25→19:31)
[2022-03-14] MEDS: SENNOSIDES/DOCUSATE TABLET 2 TAB PO ×2 (07:27→19:31)
[2022-03-14 12:10] VITALS: BP 120/70; PULSE 72; RESP 20; TEMP 36.5; O2SAT 96; BMI 29.9
[2022-03-14 15:00] VITALS: TEMP 36.6; O2SAT 97
--- NOTE | 2022-03-14 16:10 | PC.SOCIAL ---
Resident's care conference was held today. Resident had no concerns and mood remains stable. Resident has a baclifon pump refill at on , May 25 at 1pm that social work will have to set up transportation for. Daughter Imani or Jessica will meet resident there.
--- NOTE | 2022-03-14 16:50 | PC.NURSE ---
CARE CONFERENCE: Care conference meeting held with all departments today except activities. Read note from activity department to resident. Resident present. No family members present. SS will reach out to family with any questions/concerns. Dietary advised that weights are stable. Resident does take a dietary supplement at lunch meal. At times resident able to feed self depending on strength for that meal.? Nursing reviewed that resident continues to be total care with adls, transfers, and mobility. Care plan reviewed and updated. POLST reviewed. Uses no restraints.?Medications given my nursing. Vulnerability- is at risk for being harmed due to fragility and mental status. Nursing to reach out to daughter to discuss follow up appt after baclofen pump replaced per daughter requests. No questions/concerns at this time.? No plans for discharge at this time.
[2022-03-14 23:00] VITALS: TEMP 36.6; O2SAT 95
[2022-03-15] MEDS: OXYCODONE 5 MG TABLET PO ×4 (04:05→19:32)
[2022-03-15] MEDS: SENNOSIDES/DOCUSATE TABLET 2 TAB PO ×2 (07:14→19:32)
[2022-03-15] MEDS: ACETAMINOPHEN 500 MG TABLET 1000 MG PO ×3 (07:14→19:32)
[2022-03-15 08:50] VITALS: TEMP 35.9; O2SAT 97
[2022-03-15 15:00] VITALS: TEMP 37.1; O2SAT 99
[2022-03-15 23:00] VITALS: TEMP 36.9; O2SAT 96
[2022-03-16] MEDS: OXYCODONE 5 MG TABLET PO ×4 (04:12→19:47)
[2022-03-16] MEDS: ACETAMINOPHEN 500 MG TABLET 1000 MG PO ×3 (07:17→19:47)
[2022-03-16] MEDS: SENNOSIDES/DOCUSATE TABLET 2 TAB PO ×2 (07:17→19:47)
[2022-03-16 13:45] VITALS: TEMP 36.6; O2SAT 96
[2022-03-16 21:41] VITALS: TEMP 36.6; O2SAT 96
[2022-03-16 23:00] VITALS: TEMP 36.9; O2SAT 97
--- NOTE | 2022-03-17 02:44 | PC.NURSE ---
WEEKLY CHARTING- WEEK 4: Vital signs reviewed with no concenrs. Temporary and comprehensive care plan reviewed -no change. No behavioral concerns documented in the last month. Not taking any psychotropic medications at this time. Able to communicate simple needs. Staff also anticipate needs. No hearing or visual deficits. Moderate cognitive impairment. All medications administered by licensed nurse. No change in health condition.?
[2022-03-17] MEDS: OXYCODONE 5 MG TABLET PO ×4 (04:44→19:06)
[2022-03-17 07:00] VITALS: TEMP 36.4; O2SAT 97
[2022-03-17] MEDS: ACETAMINOPHEN 500 MG TABLET 1000 MG PO ×3 (07:17→19:06)
[2022-03-17] MEDS: SENNOSIDES/DOCUSATE TABLET 2 TAB PO ×2 (07:17→19:06)
--- NOTE | 2022-03-17 10:39 | PC.NURSE ---
Week #4: Comprehensive care plan reviewed, no changes made. Nothing added to temporary care plan. No changes in communication, hearing, vision, or orientation. Resident does communicate needs and staff also anticipates. Hearing is fine. Vision- no visual deficits. Has moderate cognitive impairment r/t dementia. Chronic health condition stable. Does not self administer medications. Vital signs fine. Mood/Behavior: No issues the past month. 02/02/22 Prozac discontinued. No noted changes in mood. Continue to monitor for changes.
[2022-03-17 15:00] VITALS: TEMP 37.1; O2SAT 99
[2022-03-17 23:00] VITALS: TEMP 36.8; O2SAT 97
[2022-03-18] MEDS: OXYCODONE 5 MG TABLET PO ×4 (04:54→19:23)
[2022-03-18 07:00] VITALS: TEMP 36.4; O2SAT 95
[2022-03-18] MEDS: ACETAMINOPHEN 500 MG TABLET 1000 MG PO ×3 (07:25→19:23)
[2022-03-18] MEDS: SENNOSIDES/DOCUSATE TABLET 2 TAB PO ×2 (07:28→19:23)
[2022-03-18 15:00] VITALS: TEMP 36.4; O2SAT 95
[2022-03-18 23:00] VITALS: TEMP 36.6; O2SAT 97
[2022-03-19] MEDS: OXYCODONE 5 MG TABLET PO ×4 (04:15→19:18)
[2022-03-19 07:00] VITALS: TEMP 36.9; O2SAT 97
[2022-03-19] MEDS: SENNOSIDES/DOCUSATE TABLET 2 TAB PO ×2 (08:50→19:18)
[2022-03-19] MEDS: ACETAMINOPHEN 500 MG TABLET 1000 MG PO ×3 (08:50→19:18)
[2022-03-19 15:00] VITALS: TEMP 36.9; O2SAT 97
[2022-03-19 23:00] VITALS: TEMP 36.7; O2SAT 93
[2022-03-20] MEDS: OXYCODONE 5 MG TABLET PO ×4 (04:55→19:45)
[2022-03-20] MEDS: SENNOSIDES/DOCUSATE TABLET 2 TAB PO ×2 (07:30→19:45)
[2022-03-20] MEDS: ACETAMINOPHEN 500 MG TABLET 1000 MG PO ×3 (07:30→19:45)
--- NOTE | 2022-03-20 10:30 | PC.NURSE ---
COVID OUTBREAK TESTING Residents jennypapito provided verbal consent for outbreak COVID testing. Resident is currently asymptomatic.? Resident/family will be notified only if resident is positive.
--- NOTE | 2022-03-20 11:52 | PC.SPIRITC ---
I provided visit for connection along with reading of scripture and Baptism devotion.
[2022-03-20 12:18] LABS: SARS PCR* Negative SARS-CoV-2 (Negative)
[2022-03-20 13:07] VITALS: TEMP 36.3; O2SAT 98
[2022-03-20 21:32] VITALS: TEMP 37.2; O2SAT 95
[2022-03-20 23:00] VITALS: TEMP 36.9; O2SAT 97
[2022-03-21] MEDS: OXYCODONE 5 MG TABLET PO ×4 (04:32→19:14)
[2022-03-21] MEDS: ACETAMINOPHEN 500 MG TABLET 1000 MG PO ×3 (07:44→19:14)
[2022-03-21] MEDS: SENNOSIDES/DOCUSATE TABLET 2 TAB PO ×2 (07:44→19:14)
[2022-03-21 10:30] VITALS: BP 129/90; PULSE 63; RESP 20; TEMP 36.6; O2SAT 97
[2022-03-21 13:47] VITALS: BMI 23.9
[2022-03-21 15:00] VITALS: TEMP 36.3; O2SAT 99
[2022-03-21 23:00] VITALS: TEMP 36.8; O2SAT 94
[2022-03-22] MEDS: OXYCODONE 5 MG TABLET PO ×4 (04:11→19:26)
[2022-03-22] MEDS: ACETAMINOPHEN 500 MG TABLET 1000 MG PO ×3 (07:58→19:26)
[2022-03-22] MEDS: polyethylene glycoL 238 GM BULK BOTTLE 17 GM PO (07:59)
[2022-03-22] MEDS: SENNOSIDES/DOCUSATE TABLET 2 TAB PO ×2 (07:59→19:26)
[2022-03-22 11:12] VITALS: TEMP 36.6; O2SAT 96
[2022-03-22 15:00] VITALS: TEMP 36.1; O2SAT 98
[2022-03-22 23:00] VITALS: TEMP 37.1; O2SAT 96
[2022-03-23] MEDS: OXYCODONE 5 MG TABLET PO ×4 (04:09→19:57)
[2022-03-23] MEDS: ACETAMINOPHEN 500 MG TABLET 1000 MG PO ×3 (07:21→19:54)
[2022-03-23] MEDS: SENNOSIDES/DOCUSATE TABLET 2 TAB PO ×2 (07:21→19:55)
[2022-03-23 09:58] VITALS: TEMP 36.2; O2SAT 95
[2022-03-23 15:00] VITALS: TEMP 36.6; O2SAT 96
[2022-03-23 23:00] VITALS: TEMP 36.9; O2SAT 93
[2022-03-24] MEDS: OXYCODONE 5 MG TABLET PO ×4 (04:43→19:24)
[2022-03-24] MEDS: SENNOSIDES/DOCUSATE TABLET 2 TAB PO ×2 (07:23→19:25)
[2022-03-24] MEDS: ACETAMINOPHEN 500 MG TABLET 1000 MG PO ×3 (07:23→19:24)
[2022-03-24 10:56] VITALS: TEMP 36.4; O2SAT 96
[2022-03-24 15:00] VITALS: TEMP 36.8; O2SAT 96
[2022-03-24 23:00] VITALS: TEMP 36.8; O2SAT 96
[2022-03-25] MEDS: OXYCODONE 5 MG TABLET PO ×4 (04:30→19:19)
[2022-03-25] MEDS: ACETAMINOPHEN 500 MG TABLET 1000 MG PO ×3 (07:14→19:19)
[2022-03-25] MEDS: SENNOSIDES/DOCUSATE TABLET 2 TAB PO ×2 (07:17→19:20)
[2022-03-25 12:44] VITALS: TEMP 36.6; O2SAT 96
[2022-03-25 15:00] VITALS: TEMP 36.2; O2SAT 97
[2022-03-25 23:00] VITALS: TEMP 36.9; O2SAT 95
[2022-03-26] MEDS: OXYCODONE 5 MG TABLET PO ×4 (04:34→19:06)
[2022-03-26] MEDS: ACETAMINOPHEN 500 MG TABLET 1000 MG PO ×3 (07:06→19:06)
[2022-03-26] MEDS: SENNOSIDES/DOCUSATE TABLET 2 TAB PO ×2 (07:06→19:06)
[2022-03-26 12:44] VITALS: TEMP 36.4; O2SAT 96
[2022-03-26 15:00] VITALS: TEMP 36.3; O2SAT 97
[2022-03-26 23:00] VITALS: TEMP 36.9; O2SAT 98
[2022-03-27] MEDS: OXYCODONE 5 MG TABLET PO ×4 (04:19→20:44)
[2022-03-27] MEDS: ACETAMINOPHEN 500 MG TABLET 1000 MG PO ×3 (07:28→20:44)
[2022-03-27] MEDS: SENNOSIDES/DOCUSATE TABLET 2 TAB PO ×2 (07:28→20:45)
--- NOTE | 2022-03-27 09:50 | PC.NURSE ---
COVID OUTBREAK TESTING Residents daughter gave verbal consent for outbreak COVID testing. Resident is currently asymptomatic.? Resident/family will be notified only if resident is positive.
[2022-03-27 09:51] VITALS: TEMP 36.3; O2SAT 96
[2022-03-27 11:22] LABS: SARS PCR* Negative SARS-CoV-2 (Negative)
[2022-03-27 21:13] VITALS: TEMP 35.5; O2SAT 97
[2022-03-28] MEDS: OXYCODONE 5 MG TABLET PO ×5 (00:31→19:24)
[2022-03-28 02:13] VITALS: TEMP 36.9; O2SAT 96
[2022-03-28] MEDS: ACETAMINOPHEN 500 MG TABLET 1000 MG PO ×3 (07:23→19:23)
[2022-03-28] MEDS: SENNOSIDES/DOCUSATE TABLET 2 TAB PO ×2 (07:24→19:24)
[2022-03-28 10:46] VITALS: TEMP 36.6; O2SAT 97
[2022-03-28 13:15] VITALS: BP 115/60; PULSE 82; RESP 18; TEMP 36.6; O2SAT 97; BMI 47.8
[2022-03-28 15:00] VITALS: TEMP 36.8; O2SAT 99
[2022-03-28 23:00] VITALS: TEMP 36.5; O2SAT 97
[2022-03-29] MEDS: OXYCODONE 5 MG TABLET PO ×4 (04:32→19:01)
[2022-03-29] MEDS: ACETAMINOPHEN 500 MG TABLET 1000 MG PO ×3 (07:31→19:01)
[2022-03-29] MEDS: SENNOSIDES/DOCUSATE TABLET 2 TAB PO ×2 (07:32→19:01)
[2022-03-29 09:55] VITALS: TEMP 36; O2SAT 97
[2022-03-29 15:00] VITALS: TEMP 36.2; O2SAT 97
[2022-03-29 23:00] VITALS: TEMP 36.5; O2SAT 97
[2022-03-30] MEDS: OXYCODONE 5 MG TABLET PO ×4 (04:34→19:04)
--- NOTE | 2022-03-30 05:37 | PC.NURSE ---
WEEKLY CHARTING- Week #1 Pain & ADL's: Vital signs reviewed - no new concerns at this time. Comprehensive/Temporary care plan reviewed - no changes made. Requires 2 assist with dressing, and bed baths. One assist with grooming and oral cares. Limited assist with feeding. Staff initiate and encourage to feed self after set up. On regular diet, thin liquids. No issues reported or noted with chewing or swallowing. Receives supplement with meals. Pain: Chronic lower extremities pain is controlled with Tylenol 1000mg TID, Oxycodone QID & Q4H PRN.
[2022-03-30] MEDS: ACETAMINOPHEN 500 MG TABLET 1000 MG PO ×3 (07:08→19:04)
[2022-03-30] MEDS: SENNOSIDES/DOCUSATE TABLET 2 TAB PO ×2 (07:08→19:04)
[2022-03-30 09:48] VITALS: TEMP 36.2; O2SAT 98
[2022-03-30 15:00] VITALS: TEMP 36.6; O2SAT 97
[2022-03-30 23:00] VITALS: TEMP 36.8; O2SAT 97
--- NOTE | 2022-03-31 03:16 | PC.NURSE ---
WEEKLY CHARTING - WEEK 1: Vital signs reviewed - no concerns. Temporary and comprehensive care plan reviewed - no change. Chronic pain in lower extremities. Receives ES acetaminophen TID and oxycodone 5mg QID & Q4 hours PRN which is noted to be effective for pain management. Is able to communicate pain and staff monitor for non-verbal s/sx of pain. Requires total assist of 1-2 staff with dressing, grooming, bathing, and oral care. Resident does not participate. No documented chewing/swallowing problems. Receives a regular diet with thin liquids. Requires assistance with meals. Staff encourage resident participation as able. Receives nutritional supplement with lunch.
[2022-03-31] MEDS: OXYCODONE 5 MG TABLET PO ×4 (04:41→19:18)
[2022-03-31] MEDS: SENNOSIDES/DOCUSATE TABLET 2 TAB PO ×2 (07:21→19:18)
[2022-03-31] MEDS: ACETAMINOPHEN 500 MG TABLET 1000 MG PO ×3 (07:21→19:18)
--- NOTE | 2022-03-31 07:39 | PC.NURSE ---
Week #1- ADL's: Comprehensive care plan reviewed, no changes made. Nothing added to temporary care plan. Resident needs 1-2 assist with dressing and bathing. Bed bath only. One assist with grooming and oral cares.? Needs partial assist with feeding. Staff initiate and encourage to feed self after set up. Is on regular diet, thin liquids. No problems with chewing or swallowing noted. Receives supplement @ noon. Vital signs reviewed, no concerns. Pain: Has chronic lower extremities pain. Pain is controlled with Tylenol 1000mg TID, Oxycodone QID & Q4H PRN and has used occasionally with relief. Is able to tell when in pain and staff also anticipates.
[2022-03-31 10:58] VITALS: TEMP 36.8; O2SAT 96
--- NOTE | 2022-03-31 13:32 | PC.NURSE ---
Infection control: Resident had 1 episode of loose stool L/A, staff to monitor if continue to put resident on isolation .
[2022-03-31 15:00] VITALS: TEMP 35.9; O2SAT 93
[2022-03-31 23:00] VITALS: TEMP 36.7; O2SAT 97
[2022-04-01] MEDS: OXYCODONE 5 MG TABLET PO ×4 (04:35→19:29)
[2022-04-01 07:00] VITALS: TEMP 37; O2SAT 99
[2022-04-01] MEDS: SENNOSIDES/DOCUSATE TABLET 2 TAB PO ×2 (07:50→19:30)
[2022-04-01] MEDS: ACETAMINOPHEN 500 MG TABLET 1000 MG PO ×3 (07:50→19:29)
[2022-04-01 15:00] VITALS: TEMP 37; O2SAT 99
[2022-04-01 23:00] VITALS: TEMP 36.7; O2SAT 97
[2022-04-02] MEDS: OXYCODONE 5 MG TABLET PO ×4 (04:34→19:27)
[2022-04-02 07:00] VITALS: TEMP 37.2; O2SAT 94
[2022-04-02] MEDS: ACETAMINOPHEN 500 MG TABLET 1000 MG PO ×3 (07:20→19:27)
[2022-04-02] MEDS: SENNOSIDES/DOCUSATE TABLET 2 TAB PO ×2 (07:20→19:27)
[2022-04-02 15:00] VITALS: TEMP 37.2; O2SAT 94
[2022-04-02 23:00] VITALS: TEMP 36.7; O2SAT 94
[2022-04-03] MEDS: OXYCODONE 5 MG TABLET PO ×4 (04:35→19:03)
[2022-04-03] MEDS: ACETAMINOPHEN 500 MG TABLET 1000 MG PO ×3 (07:38→19:03)
[2022-04-03] MEDS: SENNOSIDES/DOCUSATE TABLET 2 TAB PO ×2 (07:41→19:03)
[2022-04-03 10:29] VITALS: TEMP 36.3; O2SAT 96
[2022-04-03 12:05] LABS: SARS PCR* Negative SARS-CoV-2 (Negative)
--- NOTE | 2022-04-03 14:12 | PC.NURSE ---
COVID OUTBREAK TESTING Resident gave verbal consent for outbreak COVID testing. Resident is currently asymptomatic.? Resident/family will be notified only if resident is positive.
[2022-04-03 15:00] VITALS: TEMP 37; O2SAT 98
[2022-04-03 23:00] VITALS: TEMP 36.6; O2SAT 95
[2022-04-04] MEDS: OXYCODONE 5 MG TABLET PO ×4 (04:31→19:31)
[2022-04-04 07:00] VITALS: BP 154/88; PULSE 60; RESP 16; TEMP 36.3; O2SAT 95; BMI 29.7
[2022-04-04] MEDS: SENNOSIDES/DOCUSATE TABLET 2 TAB PO ×2 (07:29→19:31)
[2022-04-04] MEDS: ACETAMINOPHEN 500 MG TABLET 1000 MG PO ×3 (07:29→19:31)
[2022-04-04 15:00] VITALS: TEMP 36.8; O2SAT 95
--- NOTE | 2022-04-04 15:07 | PC.NURSE ---
Wound right out foot: Wound assessed by CORN POPPER and conventional mortgage underwriter. Chronic stage 2 wound. Area measured and charted under wound assessment. No s/s infection. No s/s pain. Scab was present and had fallen off. 100% granulation tissue noted. CORN POPPER will reassess in 1 week.
[2022-04-04 23:00] VITALS: TEMP 36.9; O2SAT 95
[2022-04-05] MEDS: OXYCODONE 5 MG TABLET PO ×4 (04:34→19:24)
[2022-04-05 07:00] VITALS: TEMP 36.5; O2SAT 92
[2022-04-05] MEDS: SENNOSIDES/DOCUSATE TABLET 2 TAB PO ×2 (07:37→19:24)
[2022-04-05] MEDS: ACETAMINOPHEN 500 MG TABLET 1000 MG PO ×3 (07:37→19:24)
--- NOTE | 2022-04-05 14:39 | PC.PHA ---
UNIVERSITY EXTENSION SPECIALIST PHARMACIST'S MEDICATION REVIEW: MEDICATION MONITORING:No psych. meds to monitor IRREGULARITY OR COMMENTS:Patient continues on baclofen pump and pain medication regimen. As needed oxycodone order minimally needed. Baclofen pump refill planned for May of 2022 SUGGESTED COURSE OF ACTION TAKEN:No recommendations for medication therapy this review.
[2022-04-05 15:00] VITALS: TEMP 36.6; O2SAT 97
[2022-04-05 23:00] VITALS: TEMP 36.9; O2SAT 93
[2022-04-06] MEDS: OXYCODONE 5 MG TABLET PO ×4 (04:16→19:51)
[2022-04-06 07:00] VITALS: TEMP 36.2; O2SAT 98
[2022-04-06] MEDS: ACETAMINOPHEN 500 MG TABLET 1000 MG PO ×3 (07:23→19:51)
[2022-04-06] MEDS: SENNOSIDES/DOCUSATE TABLET 2 TAB PO ×2 (07:24→19:51)
--- NOTE | 2022-04-06 09:44 | PC.SPIRITC ---
I provided visit for connection and support.
[2022-04-06 15:00] VITALS: TEMP 36.8; O2SAT 98
[2022-04-06 23:00] VITALS: TEMP 36.7; O2SAT 95
--- NOTE | 2022-04-07 02:22 | PC.NURSE ---
WEEKLY CHARTING - WEEK 2: Vital signs reviewed- occasional elevated BP values. Temporary and comprehensive care plan reviewed - no change. 2 staff assist with full mechanical lift for all transfers. Requires total assist of 1-2 with bed mobility. 1/4 side rails bilaterally up during cares only. Staff propel w/c to all destinations. Per fall risk assessment, resident is at high risk for falls. Fall interventions include: bed in low position with brakes locked and call light in reach.
[2022-04-07] MEDS: OXYCODONE 5 MG TABLET PO ×4 (04:28→19:25)
--- NOTE | 2022-04-07 06:49 | PC.NURSE ---
Week #2 - Mobility: Comprehensive care plan reviewed, no changes made. Nothing added to temporary care plan. Resident is non ambulatory. Transfers with 2 assists using the margo lift & a large sling. Has a tilt in space wheelchair propelled by staff to/fro all destinations. 1-2 assists with bed /chair positioning. 2 1/4 side rails up only during cares to aid with positioning.? No alarms. Vital signs reviewed, occasional elevated BP. Continue with weekly VS monitoring. Refer to NEWS VIDEO EDITOR/MD as needed. Fall: No falls the past month. Remains a high fall risk according to assessment done on 03/08/22.
[2022-04-07] MEDS: ACETAMINOPHEN 500 MG TABLET 1000 MG PO ×3 (07:14→19:24)
[2022-04-07] MEDS: SENNOSIDES/DOCUSATE TABLET 2 TAB PO ×2 (07:14→19:25)
[2022-04-07 10:31] VITALS: TEMP 36.6; O2SAT 94
[2022-04-07 15:00] VITALS: TEMP 36.6; O2SAT 97
[2022-04-07 23:00] VITALS: TEMP 35.9; O2SAT 96
[2022-04-08] MEDS: OXYCODONE 5 MG TABLET PO ×4 (04:22→19:19)
[2022-04-08] MEDS: ACETAMINOPHEN 500 MG TABLET 1000 MG PO ×3 (07:15→19:19)
[2022-04-08] MEDS: SENNOSIDES/DOCUSATE TABLET 2 TAB PO ×2 (07:15→19:19)
[2022-04-08 10:14] VITALS: TEMP 36.4; O2SAT 96
[2022-04-08 15:00] VITALS: TEMP 36.6; O2SAT 95
[2022-04-08 23:00] VITALS: TEMP 36.7; O2SAT 98
[2022-04-09] MEDS: OXYCODONE 5 MG TABLET PO ×4 (04:11→19:00)
[2022-04-09] MEDS: ACETAMINOPHEN 500 MG TABLET 1000 MG PO ×3 (07:13→19:00)
[2022-04-09] MEDS: SENNOSIDES/DOCUSATE TABLET 2 TAB PO ×2 (07:14→19:00)
[2022-04-09 10:33] VITALS: TEMP 36.5; O2SAT 92
[2022-04-09 15:00] VITALS: TEMP 36.4; O2SAT 97
[2022-04-09 23:00] VITALS: TEMP 36.6; O2SAT 96
[2022-04-10] MEDS: OXYCODONE 5 MG TABLET PO ×4 (04:06→19:21)
[2022-04-10] MEDS: SENNOSIDES/DOCUSATE TABLET 2 TAB PO ×2 (07:14→19:21)
[2022-04-10] MEDS: ACETAMINOPHEN 500 MG TABLET 1000 MG PO ×3 (07:14→19:21)
[2022-04-10 09:37] VITALS: TEMP 36.2; O2SAT 94
--- NOTE | 2022-04-10 11:27 | PC.NURSE ---
COVID OUTBREAK TESTING Resident gave verbal consent for outbreak COVID testing. Resident is currently asymptomatic.? Resident/family will be notified only if resident is positive.
[2022-04-10 12:10] LABS: SARS PCR* Negative SARS-CoV-2 (Negative)
[2022-04-10 15:00] VITALS: TEMP 37; O2SAT 98
[2022-04-10 23:00] VITALS: TEMP 36.1; O2SAT 95
[2022-04-11] MEDS: OXYCODONE 5 MG TABLET PO ×4 (04:16→19:35)
[2022-04-11] MEDS: ACETAMINOPHEN 500 MG TABLET 1000 MG PO ×3 (07:30→19:35)
[2022-04-11] MEDS: SENNOSIDES/DOCUSATE TABLET 2 TAB PO ×2 (07:30→19:35)
[2022-04-11 10:13] VITALS: BP 125/72; PULSE 67; RESP 16; TEMP 35.9; O2SAT 95
[2022-04-11 14:06] VITALS: BMI 29.9
--- NOTE | 2022-04-11 14:09 | PC.NURSE ---
Wound right outer foot viewed by TANK TRUCK DRIVER. Healed, discontinue to treatment, open to air.
[2022-04-11 15:00] VITALS: TEMP 36.6; O2SAT 98
[2022-04-11 23:00] VITALS: TEMP 36.7; O2SAT 95
[2022-04-12] MEDS: OXYCODONE 5 MG TABLET PO ×4 (04:10→19:09)
[2022-04-12] MEDS: ACETAMINOPHEN 500 MG TABLET 1000 MG PO ×3 (07:01→19:09)
[2022-04-12] MEDS: SENNOSIDES/DOCUSATE TABLET 2 TAB PO ×2 (07:01→19:09)
[2022-04-12 10:35] VITALS: TEMP 35.9; O2SAT 95
[2022-04-12 15:00] VITALS: TEMP 36.3; O2SAT 98
[2022-04-12 23:56] VITALS: TEMP 36.4; O2SAT 96
[2022-04-13] MEDS: OXYCODONE 5 MG TABLET PO ×4 (04:20→19:07)
[2022-04-13] MEDS: ACETAMINOPHEN 500 MG TABLET 1000 MG PO ×3 (07:16→19:07)
[2022-04-13] MEDS: SENNOSIDES/DOCUSATE TABLET 2 TAB PO ×2 (07:16→19:07)
[2022-04-13 15:00] VITALS: TEMP 36.3; O2SAT 97
[2022-04-13 23:00] VITALS: TEMP 36.5; O2SAT 97
[2022-04-14] MEDS: OXYCODONE 5 MG TABLET PO ×4 (05:22→20:10)
[2022-04-14 07:00] VITALS: TEMP 37.2; O2SAT 94
--- NOTE | 2022-04-14 07:15 | PC.NURSE ---
Week #3-Toileting: Comprehensive care plan reviewed, no changes made. Nothing added to temporary care plan. Resident does not use the toilet. Is checked and changed every 2 hours and PRN with 1-2 assists.Wears large briefs. All toileting needs including pads, enriqueta cares and clothing managed by staff. Vital signs reviewed, no concerns. Continue with weekly monitoring. Skin: (R) outer foot has a scab/callus healed, open to air. Heel boots when in bed & wheelchair. Skin is checked during cares and on bath day.
[2022-04-14] MEDS: SENNOSIDES/DOCUSATE TABLET 2 TAB PO ×2 (07:29→20:10)
[2022-04-14] MEDS: ACETAMINOPHEN 500 MG TABLET 1000 MG PO ×3 (07:29→20:10)
[2022-04-14 15:00] VITALS: TEMP 37; O2SAT 99
[2022-04-15 01:20] VITALS: TEMP 36.6; O2SAT 97
[2022-04-15] MEDS: OXYCODONE 5 MG TABLET PO ×4 (04:09→19:32)
[2022-04-15 07:00] VITALS: TEMP 37.2; O2SAT 97
[2022-04-15] MEDS: SENNOSIDES/DOCUSATE TABLET 2 TAB PO ×2 (07:33→19:32)
[2022-04-15] MEDS: ACETAMINOPHEN 500 MG TABLET 1000 MG PO ×3 (07:33→19:32)
[2022-04-15 15:00] VITALS: TEMP 36.3; O2SAT 96
[2022-04-16 00:19] VITALS: TEMP 36.1; O2SAT 96
[2022-04-16] MEDS: OXYCODONE 5 MG TABLET PO ×5 (04:14→23:44)
[2022-04-16 07:00] VITALS: TEMP 37.1; O2SAT 97
[2022-04-16] MEDS: SENNOSIDES/DOCUSATE TABLET 2 TAB PO ×2 (07:35→20:11)
[2022-04-16] MEDS: ACETAMINOPHEN 500 MG TABLET 1000 MG PO ×3 (07:35→20:11)
[2022-04-16 15:00] VITALS: TEMP 36.6; O2SAT 98
[2022-04-16 23:00] VITALS: TEMP 35.8; O2SAT 93
[2022-04-17] MEDS: OXYCODONE 5 MG TABLET PO ×4 (04:19→19:59)
[2022-04-17] MEDS: SENNOSIDES/DOCUSATE TABLET 2 TAB PO ×2 (07:20→19:59)
[2022-04-17] MEDS: ACETAMINOPHEN 500 MG TABLET 1000 MG PO ×3 (07:20→19:59)
[2022-04-17 10:54] VITALS: TEMP 36.2; O2SAT 96
--- NOTE | 2022-04-17 12:10 | PC.NURSE ---
COVID OUTBREAK TESTING Resident gave verbal consent for outbreak COVID testing. Resident is currently asymptomatic.? Resident/family will be notified only if resident is positive.
[2022-04-17 15:00] VITALS: TEMP 35.9; O2SAT 98
[2022-04-17 15:43] LABS: SARS PCR* Negative SARS-CoV-2 (Negative)
[2022-04-17 23:00] VITALS: TEMP 36.8; O2SAT 96
[2022-04-18] MEDS: OXYCODONE 5 MG TABLET PO ×4 (04:33→19:16)
[2022-04-18] MEDS: SENNOSIDES/DOCUSATE TABLET 2 TAB PO ×2 (07:23→19:16)
[2022-04-18] MEDS: ACETAMINOPHEN 500 MG TABLET 1000 MG PO ×3 (07:23→19:16)
--- NOTE | 2022-04-18 09:46 | PC.NURSE ---
Skin: Was noted that resident has old, fading yellow bruise on the top of the right foot measuring 7.5cm x 4.0cm that is consistent with bumping it on the CUONG simms
[2022-04-18 09:54] VITALS: BP 157/84; PULSE 62; RESP 18; TEMP 36; O2SAT 97; BMI 30.2
[2022-04-18 22:29] VITALS: TEMP 36.4; O2SAT 93
[2022-04-18 23:00] VITALS: TEMP 36.6; O2SAT 95
[2022-04-19] MEDS: OXYCODONE 5 MG TABLET PO ×4 (04:43→19:15)
[2022-04-19 07:00] VITALS: TEMP 36.3; O2SAT 96
[2022-04-19] MEDS: ACETAMINOPHEN 500 MG TABLET 1000 MG PO ×3 (07:18→19:15)
[2022-04-19] MEDS: SENNOSIDES/DOCUSATE TABLET 2 TAB PO ×2 (07:19→19:15)
[2022-04-19 15:00] VITALS: TEMP 36.6; O2SAT 97
[2022-04-19 23:00] VITALS: TEMP 36.8; O2SAT 98
[2022-04-20] MEDS: OXYCODONE 5 MG TABLET PO ×4 (04:39→20:41)
[2022-04-20 07:00] VITALS: TEMP 36.4; O2SAT 98
[2022-04-20] MEDS: ACETAMINOPHEN 500 MG TABLET 1000 MG PO ×3 (07:11→20:41)
[2022-04-20] MEDS: SENNOSIDES/DOCUSATE TABLET 2 TAB PO ×2 (07:11→20:41)
[2022-04-20 15:00] VITALS: TEMP 36.8; O2SAT 98
[2022-04-20 23:00] VITALS: TEMP 36.7; O2SAT 97
--- NOTE | 2022-04-21 03:23 | PC.NURSE ---
WEEKLY CHARTING- WEEK 4: Vital signs reviewed - no concerns. Temporary and comprehensive care plan reviewed - no change. No documented behaviors in the last month. Sleep pattern unchanged. No psychotropic medications at this time. Able to communicate simple needs. Needs also anticipated. Hearing and vision intact. Moderate cognitive impairment r/t dementia. All medications administered by licensed nurse. No change in health condition.?
[2022-04-21] MEDS: OXYCODONE 5 MG TABLET PO ×4 (04:44→19:34)
[2022-04-21] MEDS: ACETAMINOPHEN 500 MG TABLET 1000 MG PO ×3 (07:25→19:34)
[2022-04-21] MEDS: SENNOSIDES/DOCUSATE TABLET 2 TAB PO ×2 (07:25→19:34)
[2022-04-21 10:55] VITALS: TEMP 36.6; O2SAT 99
--- NOTE | 2022-04-21 11:46 | PC.NURSE ---
Week #4: Comprehensive and temporary care plan reviewed. No changes made. & nothing added to temporary care plan. No changes noted in communication, hearing, vision, or orientation. Resident does communicate needs and also hayden anticipates. Hearing and vision fine. Cognition is impaired r/t dementia. Chronic health condition stable. Vital signs fine. Nurse administers all medications. Mood/Behavior: Stable. No issues documented in the last month. Is on no psychotropic medications.
[2022-04-21 15:00] VITALS: TEMP 36.2; O2SAT 98
[2022-04-21 23:00] VITALS: TEMP 36.7; O2SAT 95
[2022-04-22] MEDS: OXYCODONE 5 MG TABLET PO ×4 (03:56→19:18)
[2022-04-22] MEDS: ACETAMINOPHEN 500 MG TABLET 1000 MG PO ×3 (07:04→19:18)
[2022-04-22] MEDS: SENNOSIDES/DOCUSATE TABLET 2 TAB PO ×2 (07:04→19:18)
[2022-04-22 13:13] VITALS: TEMP 36.3; O2SAT 96
[2022-04-22 15:00] VITALS: TEMP 36.3; O2SAT 96
[2022-04-22 23:00] VITALS: TEMP 36.6; O2SAT 95
[2022-04-23] MEDS: OXYCODONE 5 MG TABLET PO ×4 (04:57→19:32)
[2022-04-23] MEDS: SENNOSIDES/DOCUSATE TABLET 2 TAB PO ×2 (07:19→19:32)
[2022-04-23] MEDS: ACETAMINOPHEN 500 MG TABLET 1000 MG PO ×3 (07:19→19:32)
[2022-04-23 10:41] VITALS: TEMP 36.6; O2SAT 96
[2022-04-23 15:00] VITALS: TEMP 36.1; O2SAT 96
[2022-04-23 23:00] VITALS: TEMP 36.6; O2SAT 96
[2022-04-24] MEDS: OXYCODONE 5 MG TABLET PO ×4 (03:29→19:18)
[2022-04-24] MEDS: ACETAMINOPHEN 500 MG TABLET 1000 MG PO ×3 (07:12→19:18)
[2022-04-24] MEDS: SENNOSIDES/DOCUSATE TABLET 2 TAB PO ×2 (07:12→19:18)
--- NOTE | 2022-04-24 10:00 | PC.NURSE ---
COVID OUTBREAK TESTING Resident and residents daughter gave verbal consent for outbreak COVID testing. Resident is currently asymptomatic.? Resident/family will be notified only if resident is positive.
[2022-04-24 10:17] VITALS: TEMP 36.3; O2SAT 96
[2022-04-24 11:27] LABS: SARS PCR* Negative SARS-CoV-2 (Negative)
[2022-04-24 21:34] VITALS: TEMP 36.4; O2SAT 95
[2022-04-24 23:00] VITALS: TEMP 36.6; O2SAT 94
[2022-04-25] MEDS: OXYCODONE 5 MG TABLET PO ×4 (04:03→19:52)
[2022-04-25 07:00] VITALS: TEMP 36.4; O2SAT 97
[2022-04-25] MEDS: ACETAMINOPHEN 500 MG TABLET 1000 MG PO ×3 (07:13→19:52)
[2022-04-25] MEDS: SENNOSIDES/DOCUSATE TABLET 2 TAB PO ×2 (07:14→19:52)
[2022-04-25 14:00] VITALS: BP 148/82; PULSE 64; RESP 18; TEMP 36.4; O2SAT 97; BMI 31.1
[2022-04-25 23:00] VITALS: TEMP 36.4; O2SAT 99
[2022-04-26] MEDS: OXYCODONE 5 MG TABLET PO ×4 (04:19→19:19)
[2022-04-26 07:00] VITALS: TEMP 36.8; O2SAT 99
[2022-04-26] MEDS: SENNOSIDES/DOCUSATE TABLET 2 TAB PO ×2 (07:11→19:19)
[2022-04-26] MEDS: ACETAMINOPHEN 500 MG TABLET 1000 MG PO ×3 (07:11→19:19)
[2022-04-26 15:00] VITALS: TEMP 36; O2SAT 100
[2022-04-26 23:27] VITALS: TEMP 36.8; O2SAT 97
[2022-04-27] MEDS: OXYCODONE 5 MG TABLET PO ×4 (03:30→19:06)
[2022-04-27] MEDS: SENNOSIDES/DOCUSATE TABLET 2 TAB PO ×2 (07:27→19:06)
[2022-04-27] MEDS: ACETAMINOPHEN 500 MG TABLET 1000 MG PO ×3 (07:27→19:06)
[2022-04-27 10:39] VITALS: TEMP 36.3; O2SAT 96
[2022-04-27 16:01] VITALS: TEMP 36.6; O2SAT 100
--- NOTE | 2022-04-28 00:47 | PC.NURSE ---
Weekly charting Week 1: Vitals reviewed, No concerns. Temporary care plan and comprehensive care plan reviewed, nothing changes made. ADLs: Res needs total assist with 1-2 staff of bathing, dressing. Prefer to have bed bath. total 1 assist of oral hygiene. Does not participate care at all. On regular diet, thin liquids. Res needs limited assistance of feeding. no problem of chewing and swallowing. PAIN: Res has chronic lower extremities pain. Scheduled acetaminophen 1000mg TID, Oxycodone 5mg Q4hrs scheduled and oxycodone 5mg QID PRN controlled the pain.
[2022-04-28] MEDS: OXYCODONE 5 MG TABLET PO ×4 (03:31→20:32)
--- NOTE | 2022-04-28 06:57 | PC.NURSE ---
Week #1- ADL's: Comprehensive & temporary care plan reviewed. No changes made. Nothing added to temporary care plan. Resident needs 1-2 assist with dressing and bathing. Bed bath only. One assist with grooming and oral cares.? Needs partial assist with feeding. Staff initiate and encourage to feed self after set up. Is on regular diet, thin liquids. No problems with chewing or swallowing noted. Receives nutritional supplement @ noon. Vital signs reviewed, no concerns. Pain: Has chronic lower extremities pain. Pain is controlled with Tylenol 1000mg TID, Oxycodone QID & Q4H PRN and has used occasionally with relief. Is able to tell when in pain and staff also anticipates.
[2022-04-28] MEDS: ACETAMINOPHEN 500 MG TABLET 1000 MG PO ×3 (07:21→20:31)
[2022-04-28] MEDS: SENNOSIDES/DOCUSATE TABLET 2 TAB PO ×2 (07:21→20:32)
[2022-04-28 15:00] VITALS: TEMP 37; O2SAT 99
[2022-04-29] MEDS: OXYCODONE 5 MG TABLET PO ×4 (04:16→19:34)
[2022-04-29] MEDS: SENNOSIDES/DOCUSATE TABLET 2 TAB PO ×2 (08:19→19:34)
[2022-04-29] MEDS: ACETAMINOPHEN 500 MG TABLET 1000 MG PO ×3 (08:19→19:34)
[2022-04-29 15:00] VITALS: TEMP 36.9; O2SAT 98
[2022-04-30] MEDS: OXYCODONE 5 MG TABLET PO ×4 (04:47→20:13)
[2022-04-30] MEDS: SENNOSIDES/DOCUSATE TABLET 2 TAB PO ×2 (07:01→20:13)
[2022-04-30] MEDS: ACETAMINOPHEN 500 MG TABLET 1000 MG PO ×3 (07:01→20:13)
[2022-04-30 15:00] VITALS: TEMP 36.6; O2SAT 93
[2022-05-01] MEDS: OXYCODONE 5 MG TABLET PO ×4 (04:32→19:09)
[2022-05-01] MEDS: ACETAMINOPHEN 500 MG TABLET 1000 MG PO ×3 (07:42→19:09)
[2022-05-01] MEDS: SENNOSIDES/DOCUSATE TABLET 2 TAB PO ×2 (07:42→19:09)
[2022-05-01 15:00] VITALS: TEMP 36.7; O2SAT 96
[2022-05-02] MEDS: OXYCODONE 5 MG TABLET PO ×4 (03:58→19:19)
[2022-05-02] MEDS: ACETAMINOPHEN 500 MG TABLET 1000 MG PO ×3 (07:04→19:19)
[2022-05-02] MEDS: SENNOSIDES/DOCUSATE TABLET 2 TAB PO ×2 (07:05→19:19)
[2022-05-02 10:25] VITALS: BP 110/60; PULSE 71; RESP 18; TEMP 36.2; O2SAT 98
[2022-05-02 13:13] VITALS: BMI 31.3
[2022-05-02 15:01] VITALS: TEMP 36.3; O2SAT 96
[2022-05-03] MEDS: OXYCODONE 5 MG TABLET PO ×4 (04:10→19:15)
[2022-05-03] MEDS: SENNOSIDES/DOCUSATE TABLET 2 TAB PO ×2 (07:06→19:15)
[2022-05-03] MEDS: ACETAMINOPHEN 500 MG TABLET 1000 MG PO ×3 (07:06→19:15)
--- NOTE | 2022-05-03 08:12 | PC.PHA1 ---
ACCOUNTS RECEIVABLE CLERK PHARMACIST'S MEDICATION REVIEW: MEDICATION MONITORING: No changes to patient's medication profile since last month's review IRREGULARITY OR COMMENTS:After review of nursing notes no medication related problems to address. SUGGESTED COURSE OF ACTION TAKEN:No medication recommendations at this time.
[2022-05-03 15:00] VITALS: TEMP 36.5; O2SAT 99
[2022-05-04] MEDS: OXYCODONE 5 MG TABLET PO ×4 (04:28→19:51)
[2022-05-04] MEDS: ACETAMINOPHEN 500 MG TABLET 1000 MG PO ×3 (07:06→19:51)
[2022-05-04] MEDS: SENNOSIDES/DOCUSATE TABLET 2 TAB PO ×2 (07:06→19:51)
--- NOTE | 2022-05-04 08:48 | PC.SPIRITC ---
I provided brief visit for connection as Marshall waited for breakfast.
--- NOTE | 2022-05-04 13:00 | PC.NURSE ---
(R) Foot wound viewed by Renuka STEARNS. D/C treatment.
[2022-05-04 15:00] VITALS: TEMP 36.8; O2SAT 98
[2022-05-04 23:54] VITALS: TEMP 36.7; O2SAT 95
--- NOTE | 2022-05-05 00:55 | PC.NURSE ---
Weekly Charting Week 2: Vital signs reviewed. No concern. Comprehensive care plan and temporary care plan reviewed. No changes made, nothing added to temporary care plan. Res requires 1-2 staff with mobility and repositioning. Total assist of 2 with the use of Salvador Lift for transferring. Staff wheel to from all destination. Does not ambulate. Use 1/4 side rail for repositioning, up only during cares. No history of fall.
[2022-05-05] MEDS: OXYCODONE 5 MG TABLET PO ×4 (04:03→20:04)
[2022-05-05] MEDS: ACETAMINOPHEN 500 MG TABLET 1000 MG PO ×3 (07:09→20:04)
[2022-05-05] MEDS: SENNOSIDES/DOCUSATE TABLET 2 TAB PO ×2 (07:09→20:04)
--- NOTE | 2022-05-05 07:19 | PC.NURSE ---
Week #2 - Mobility: Comprehensive care plan reviewed, no changes made. Nothing added to temporary care plan. Resident is non ambulatory. Transfers with 2 assists using the margo lift & a large sling. Has a tilt in space wheelchair propelled by staff to/fro all destinations. 1-2 assists with bed /chair positioning. Bilateral 1/4 side rails up only during cares to aid with positioning.? No alarms. Vital signs reviewed, occasional elevated BP. Continue with weekly VS monitoring. Refer to FULL STACK SOFTWARE ENGINEER/MD as needed. Fall: Has had no falls. Remains a high fall risk according to assessment done on 03/08/22. Fall Interventions: Call light within reach, bed in low position brakes locked. falling star in door.
[2022-05-05 10:33] VITALS: TEMP 36.6; O2SAT 95
--- NOTE | 2022-05-05 12:26 | PC.NURSE ---
Recert Visit: Resident seen by Dr. Cuellar. Orders reviewed and renewed of 75 days with no changes.
[2022-05-05 15:00] VITALS: TEMP 36.2; O2SAT 97
[2022-05-06 00:31] VITALS: TEMP 36.7; O2SAT 98
[2022-05-06] MEDS: OXYCODONE 5 MG TABLET PO ×4 (04:28→19:14)
[2022-05-06] MEDS: SENNOSIDES/DOCUSATE TABLET 2 TAB PO ×2 (07:10→19:14)
[2022-05-06] MEDS: ACETAMINOPHEN 500 MG TABLET 1000 MG PO ×3 (07:10→19:14)
[2022-05-06 11:00] VITALS: TEMP 36.2; O2SAT 96
[2022-05-06 15:00] VITALS: TEMP 36.3; O2SAT 98
[2022-05-07 00:14] VITALS: TEMP 36.9; O2SAT 96
[2022-05-07] MEDS: OXYCODONE 5 MG TABLET PO ×4 (04:58→19:22)
[2022-05-07] MEDS: SENNOSIDES/DOCUSATE TABLET 2 TAB PO ×2 (07:10→19:22)
[2022-05-07] MEDS: ACETAMINOPHEN 500 MG TABLET 1000 MG PO ×3 (07:10→19:22)
[2022-05-07 11:02] VITALS: TEMP 37.1; O2SAT 98
[2022-05-07 15:00] VITALS: TEMP 36.2; O2SAT 95
[2022-05-07 23:57] VITALS: TEMP 36.6; O2SAT 97
[2022-05-08] MEDS: OXYCODONE 5 MG TABLET PO ×4 (04:26→19:15)
[2022-05-08] MEDS: SENNOSIDES/DOCUSATE TABLET 2 TAB PO ×2 (07:10→19:15)
[2022-05-08] MEDS: ACETAMINOPHEN 500 MG TABLET 1000 MG PO ×3 (07:10→19:15)
--- NOTE | 2022-05-08 10:05 | PC.NURSE ---
COVID OUTBREAK TESTING Resident gave verbal consent for outbreak COVID testing. Resident is currently asymptomatic.? Resident/family will be notified only if resident is positive.
[2022-05-08 10:24] VITALS: TEMP 36.4; O2SAT 96
[2022-05-08 13:31] LABS: SARS PCR* Negative SARS-CoV-2 (Negative)
[2022-05-08 16:40] VITALS: TEMP 36.9; O2SAT 96
[2022-05-09 00:07] VITALS: TEMP 36.7; O2SAT 95
[2022-05-09] MEDS: OXYCODONE 5 MG TABLET PO ×5 (01:33→19:22)
[2022-05-09] MEDS: ACETAMINOPHEN 500 MG TABLET 1000 MG PO ×3 (07:06→19:22)
[2022-05-09] MEDS: SENNOSIDES/DOCUSATE TABLET 2 TAB PO ×2 (07:06→19:22)
[2022-05-09 10:25] VITALS: TEMP 36.4; O2SAT 95
[2022-05-09 13:01] VITALS: BP 124/70; PULSE 72; RESP 18; TEMP 36.4; O2SAT 95; BMI 31.3
[2022-05-09 15:00] VITALS: TEMP 36.6; O2SAT 95
[2022-05-09 23:00] VITALS: TEMP 36.4; O2SAT 99
[2022-05-10] MEDS: OXYCODONE 5 MG TABLET PO ×4 (03:15→19:11)
[2022-05-10] MEDS: SENNOSIDES/DOCUSATE TABLET 2 TAB PO ×2 (07:28→19:11)
[2022-05-10] MEDS: ACETAMINOPHEN 500 MG TABLET 1000 MG PO ×3 (07:28→19:11)
[2022-05-10 10:14] VITALS: TEMP 36.4; O2SAT 96
[2022-05-10 15:00] VITALS: TEMP 36.6; O2SAT 100
[2022-05-10 23:00] VITALS: TEMP 36.5; O2SAT 98
[2022-05-11] MEDS: OXYCODONE 5 MG TABLET PO ×5 (00:13→19:03)
[2022-05-11] MEDS: ACETAMINOPHEN 500 MG TABLET 1000 MG PO ×3 (07:29→19:03)
[2022-05-11] MEDS: SENNOSIDES/DOCUSATE TABLET 2 TAB PO ×2 (07:29→19:03)
[2022-05-11 10:11] VITALS: TEMP 36.3; O2SAT 96
[2022-05-11 15:00] VITALS: TEMP 37.1; O2SAT 100
[2022-05-11 23:00] VITALS: TEMP 36.9; O2SAT 96
--- NOTE | 2022-05-12 02:22 | PC.NURSE ---
WEEKLY CHARTING - WEEK 3: Vital signs reviewed - mild elevation in BP values noted at times. Continue weekly monitoring per protocol. Temporary and comprehensive care plan reviewed - no change. No current skin integrity concerns. Lotion is applied to bilateral legs and feet BID with AM and HS cares. Wears bilateral heel protectors at all times. Incontinent of bowel and bladder. Wears XL brief. Total assist of 1-2 to check and change brief on 1st and third rounds at night.
[2022-05-12] MEDS: OXYCODONE 5 MG TABLET PO ×4 (03:23→19:10)
[2022-05-12] MEDS: ACETAMINOPHEN 500 MG TABLET 1000 MG PO ×3 (07:39→19:15)
[2022-05-12] MEDS: SENNOSIDES/DOCUSATE TABLET 2 TAB PO ×2 (07:39→19:15)
[2022-05-12 10:20] VITALS: TEMP 36.4; O2SAT 95
--- NOTE | 2022-05-12 13:36 | PC.NURSE ---
Week #3-Toileting: Comprehensive & temporary care plan reviewed. No changes made. Nothing added to temporary care plan. Resident does not use the toilet. Is checked and changed every 2 hours and PRN with 1-2 assists.Wears large briefs. All toileting needs including pads, enriqueta cares and clothing managed by staff. Vital signs reviewed, occasional mild BP elevation. Continue with weekly monitoring and refer to provider as needed. Skin: No issues at this time. Heel boots when in bed & wheelchair. Lotion to both legs and feet during cares in AM & HS. Skin is routinely checked during cares and on bath day.
[2022-05-12 15:00] VITALS: TEMP 36.9; O2SAT 98
[2022-05-12 23:00] VITALS: TEMP 36.8; O2SAT 97
[2022-05-13] MEDS: OXYCODONE 5 MG TABLET PO ×4 (03:46→20:21)
[2022-05-13 07:00] VITALS: TEMP 36.5; O2SAT 98
[2022-05-13] MEDS: SENNOSIDES/DOCUSATE TABLET 2 TAB PO ×2 (07:26→20:21)
[2022-05-13] MEDS: ACETAMINOPHEN 500 MG TABLET 1000 MG PO ×3 (07:26→20:21)
[2022-05-13 15:00] VITALS: TEMP 36.5; O2SAT 97
[2022-05-13 23:00] VITALS: TEMP 36.6; O2SAT 96
[2022-05-14] MEDS: OXYCODONE 5 MG TABLET PO ×4 (04:09→20:53)
[2022-05-14 07:00] VITALS: TEMP 35.8; O2SAT 97
[2022-05-14] MEDS: SENNOSIDES/DOCUSATE TABLET 2 TAB PO ×2 (07:04→20:53)
[2022-05-14] MEDS: ACETAMINOPHEN 500 MG TABLET 1000 MG PO ×3 (07:04→20:53)
[2022-05-14 15:00] VITALS: TEMP 36.8; O2SAT 96
[2022-05-14 23:00] VITALS: TEMP 36.7; O2SAT 98
[2022-05-15] MEDS: OXYCODONE 5 MG TABLET PO ×4 (04:42→19:04)
[2022-05-15] MEDS: ACETAMINOPHEN 500 MG TABLET 1000 MG PO ×3 (07:09→19:04)
[2022-05-15] MEDS: SENNOSIDES/DOCUSATE TABLET 2 TAB PO ×2 (07:10→19:04)
--- NOTE | 2022-05-15 12:17 | PC.NURSE ---
COVID OUTBREAK TESTING Resident gave verbal consent for outbreak COVID testing. Resident is currently asymptomatic.? Resident/family will be notified only if resident is positive.
[2022-05-15 12:25] LABS: SARS PCR* Negative SARS-CoV-2 (Negative)
[2022-05-15 13:02] VITALS: TEMP 36.4; O2SAT 96
[2022-05-15 15:50] VITALS: TEMP 36.4; O2SAT 97
[2022-05-15 23:00] VITALS: TEMP 37.1; O2SAT 97
[2022-05-16] MEDS: OXYCODONE 5 MG TABLET PO ×4 (04:15→19:44)
[2022-05-16] MEDS: SENNOSIDES/DOCUSATE TABLET 2 TAB PO ×2 (07:40→19:44)
[2022-05-16] MEDS: ACETAMINOPHEN 500 MG TABLET 1000 MG PO ×3 (07:40→19:44)
[2022-05-16 10:10] VITALS: TEMP 36.9; O2SAT 98
[2022-05-16 10:33] VITALS: BP 104/56; PULSE 63; RESP 20; TEMP 36.9; O2SAT 98
--- NOTE | 2022-05-16 12:16 | PC.SPIRITC ---
I provided visit for support and connection.
[2022-05-16 13:25] VITALS: BMI 31.1
--- NOTE | 2022-05-16 14:46 | PC.NURSE ---
[facility] desk updated that resident will be taking a stretcher to appointment on 06/12/22 @11am. SW updated daughter Maria E.
[2022-05-16 15:00] VITALS: TEMP 36.2; O2SAT 95
[2022-05-16 23:00] VITALS: TEMP 37.1; O2SAT 97
[2022-05-17] MEDS: OXYCODONE 5 MG TABLET PO ×4 (04:02→19:55)
[2022-05-17] MEDS: SENNOSIDES/DOCUSATE TABLET 2 TAB PO ×2 (07:25→19:55)
[2022-05-17] MEDS: ACETAMINOPHEN 500 MG TABLET 1000 MG PO ×3 (07:25→19:55)
[2022-05-17 09:39] VITALS: TEMP 36.4; O2SAT 96
[2022-05-17 15:00] VITALS: TEMP 36.3; O2SAT 96
[2022-05-17 21:58] VITALS: TEMP 36.4
[2022-05-17 23:00] VITALS: TEMP 36.9; O2SAT 97
[2022-05-18] MEDS: OXYCODONE 5 MG TABLET PO ×4 (04:23→19:45)
[2022-05-18] MEDS: ACETAMINOPHEN 500 MG TABLET 1000 MG PO ×3 (07:41→19:45)
[2022-05-18] MEDS: SENNOSIDES/DOCUSATE TABLET 2 TAB PO ×2 (07:41→19:45)
[2022-05-18 08:56] VITALS: TEMP 36.6; O2SAT 96
[2022-05-18 15:00] VITALS: TEMP 36.6; O2SAT 99
[2022-05-18 23:00] VITALS: TEMP 36.6; O2SAT 95
--- NOTE | 2022-05-19 00:37 | PC.NURSE ---
No noted s/sx of aspiration. Temp 97.9, SpO2 95% on RA. Lung sounds clear throughout. Will monitor.
--- NOTE | 2022-05-19 02:23 | PC.NURSE ---
WEEKLY CHARTING- WEEK 4: Vital signs reviewed - no concerns. Temporary and comprehensive care plan reviewed - no change. Documented behavior of swearing at staff during cares x1 in the last month. Not on any psychotropic medications at this time. Communicate simple needs. Staff anticipate needs. No hearing of visual impairment. Moderate cognitive impairment r/t dementia. All medications administered by licensed nurse. Health condition stable at this time.?
[2022-05-19] MEDS: OXYCODONE 5 MG TABLET PO ×4 (03:36→20:27)
[2022-05-19] MEDS: SENNOSIDES/DOCUSATE TABLET 2 TAB PO ×2 (07:33→20:27)
[2022-05-19] MEDS: ACETAMINOPHEN 500 MG TABLET 1000 MG PO ×3 (07:33→20:25)
--- NOTE | 2022-05-19 08:31 | PC.NURSE ---
Week #4: Comprehensive and temporary care plan reviewed. No changes made. & nothing added to temporary care plan. No changes noted in communication, hearing, vision, or orientation. Resident does communicate needs and also hayden anticipates. Hearing and vision fine. Cognition is impaired r/t dementia. Chronic health condition stable. Vital signs reviewed, no concerns. Nurse administers all medications. Mood/Behavior: No issues documented in the last month. But for this month has one episode of resisting cares/swearing at staff which improved with 1:1. Is on no psychotropic medications.
[2022-05-19 10:20] VITALS: TEMP 36.4; O2SAT 96
[2022-05-19 15:00] VITALS: TEMP 36.4; TEMP 36.5; O2SAT 96
--- NOTE | 2022-05-19 22:31 | PC.NURSE ---
Resident is afebrile. Lung sounds clear.
[2022-05-19 23:54] VITALS: TEMP 37; O2SAT 95
[2022-05-20] MEDS: OXYCODONE 5 MG TABLET PO ×4 (03:58→19:10)
[2022-05-20 05:47] VITALS: TEMP 36.7
[2022-05-20] MEDS: ACETAMINOPHEN 500 MG TABLET 1000 MG PO ×3 (07:17→19:10)
[2022-05-20] MEDS: SENNOSIDES/DOCUSATE TABLET 2 TAB PO ×2 (07:18→19:10)
[2022-05-20 10:30] VITALS: TEMP 36.4; O2SAT 96
[2022-05-20 15:00] VITALS: TEMP 36.2; O2SAT 99
--- NOTE | 2022-05-20 21:43 | PC.NURSE ---
No s/s of aspiration. Temp 97.2. O2 Sats 99% on room air. Lung sounds clear throughout. Monitoring for 3 days is done. Intervention completed.
[2022-05-21 00:12] VITALS: TEMP 36.8; O2SAT 95
[2022-05-21] MEDS: OXYCODONE 5 MG TABLET PO ×4 (03:50→19:11)
[2022-05-21] MEDS: ACETAMINOPHEN 500 MG TABLET 1000 MG PO ×3 (07:15→19:11)
[2022-05-21] MEDS: SENNOSIDES/DOCUSATE TABLET 2 TAB PO ×2 (07:15→19:11)
[2022-05-21 12:43] VITALS: TEMP 36.8; O2SAT 94
[2022-05-21 15:00] VITALS: TEMP 36.2; O2SAT 100
[2022-05-21 23:52] VITALS: TEMP 36.8; O2SAT 96
[2022-05-22] MEDS: OXYCODONE 5 MG TABLET PO ×4 (03:54→19:58)
[2022-05-22 07:00] VITALS: TEMP 36.8; O2SAT 96
[2022-05-22] MEDS: ACETAMINOPHEN 500 MG TABLET 1000 MG PO ×3 (07:09→19:58)
[2022-05-22] MEDS: SENNOSIDES/DOCUSATE TABLET 2 TAB PO ×2 (07:09→19:58)
[2022-05-22 14:05] LABS: SARS PCR* Negative SARS-CoV-2 (Negative)
[2022-05-22 15:00] VITALS: TEMP 36.7; O2SAT 98
[2022-05-23 01:26] VITALS: TEMP 36.7; O2SAT 95
[2022-05-23] MEDS: OXYCODONE 5 MG TABLET PO ×4 (04:06→19:33)
[2022-05-23] MEDS: ACETAMINOPHEN 500 MG TABLET 1000 MG PO ×3 (07:08→19:33)
[2022-05-23] MEDS: SENNOSIDES/DOCUSATE TABLET 2 TAB PO ×2 (07:08→19:33)
[2022-05-23 10:16] VITALS: BP 132/76; PULSE 74; RESP 18; TEMP 36.3; O2SAT 96
[2022-05-23 13:17] VITALS: BMI 31.3
[2022-05-23 15:00] VITALS: TEMP 36.4; O2SAT 93
[2022-05-23 23:00] VITALS: TEMP 36.9; O2SAT 96
[2022-05-24] MEDS: OXYCODONE 5 MG TABLET PO ×4 (03:34→20:15)
[2022-05-24] MEDS: ACETAMINOPHEN 500 MG TABLET 1000 MG PO ×3 (07:32→20:14)
[2022-05-24] MEDS: SENNOSIDES/DOCUSATE TABLET 2 TAB PO ×2 (07:32→20:14)
[2022-05-24 10:03] VITALS: TEMP 36.4; O2SAT 95
[2022-05-24 15:00] VITALS: TEMP 36.6; O2SAT 96
[2022-05-24 23:00] VITALS: TEMP 36.8; O2SAT 96
[2022-05-25] MEDS: OXYCODONE 5 MG TABLET PO ×4 (03:38→19:33)
[2022-05-25] MEDS: ACETAMINOPHEN 500 MG TABLET 1000 MG PO ×3 (07:23→19:33)
[2022-05-25] MEDS: SENNOSIDES/DOCUSATE TABLET 2 TAB PO ×2 (07:24→19:33)
[2022-05-25 10:35] VITALS: TEMP 36.4; O2SAT 96
[2022-05-25 15:00] VITALS: TEMP 36.1; O2SAT 96
[2022-05-25 23:00] VITALS: TEMP 36.6; O2SAT 98
--- NOTE | 2022-05-26 01:20 | PC.NURSE ---
WEEKLY CHARTING - WEEK 1: Vital signs reviewed - no concerns. Temporary and comprehensive care plan reviewed - no change. Has chronic pain in lower extremities. Receives acetaminophen 1000mg TID and oxycodone 5mg QID & Q4 hours PRN which is noted to be effective for pain management. Able to communicate pain and staff monitor for non-verbal s/sx of pain. Total assist of 1-2 staff with dressing, grooming, bathing, and oral care. Resident does not participate. No documented chewing/swallowing problems. Receives a regular diet with regular textures and thin liquids. Requires staff assistance with meals. Resident participation is encouraged as able. Receives nutritional supplement with lunch meal.
[2022-05-26] MEDS: OXYCODONE 5 MG TABLET PO ×4 (04:16→20:05)
[2022-05-26] MEDS: ACETAMINOPHEN 500 MG TABLET 1000 MG PO ×3 (07:57→20:05)
[2022-05-26] MEDS: SENNOSIDES/DOCUSATE TABLET 2 TAB PO ×2 (07:57→20:06)
[2022-05-26 10:37] VITALS: TEMP 36.2; O2SAT 95
[2022-05-26 15:00] VITALS: TEMP 36.4; O2SAT 97
[2022-05-26 23:00] VITALS: TEMP 36.4; O2SAT 97
[2022-05-27] MEDS: OXYCODONE 5 MG TABLET PO ×4 (04:29→20:30)
[2022-05-27 07:00] VITALS: TEMP 36.3; O2SAT 100
[2022-05-27] MEDS: ACETAMINOPHEN 500 MG TABLET 1000 MG PO ×3 (07:21→20:30)
[2022-05-27] MEDS: SENNOSIDES/DOCUSATE TABLET 2 TAB PO ×2 (07:22→20:30)
[2022-05-27 15:00] VITALS: TEMP 36.8; O2SAT 99
[2022-05-27 23:00] VITALS: TEMP 37.1; O2SAT 96
[2022-05-28] MEDS: OXYCODONE 5 MG TABLET PO ×4 (04:34→19:18)
[2022-05-28] MEDS: ACETAMINOPHEN 500 MG TABLET 1000 MG PO ×3 (07:08→19:18)
[2022-05-28] MEDS: SENNOSIDES/DOCUSATE TABLET 2 TAB PO ×2 (07:08→19:18)
[2022-05-28 10:35] VITALS: TEMP 36.9; O2SAT 96
[2022-05-28 16:08] VITALS: TEMP 36.6; O2SAT 99
[2022-05-28 23:00] VITALS: TEMP 36.7; O2SAT 97
[2022-05-29] MEDS: OXYCODONE 5 MG TABLET PO ×4 (03:49→19:37)
[2022-05-29 07:00] VITALS: TEMP 36.6; O2SAT 97
[2022-05-29] MEDS: SENNOSIDES/DOCUSATE TABLET 2 TAB PO ×2 (07:24→19:37)
[2022-05-29] MEDS: ACETAMINOPHEN 500 MG TABLET 1000 MG PO ×3 (07:24→19:37)
--- NOTE | 2022-05-29 12:51 | PC.NURSE ---
COVID OUTBREAK TESTING Resident gave verbal consent for outbreak COVID testing. Resident is currently asymptomatic.? Resident/family will be notified only if resident is positive.
[2022-05-29 14:03] LABS: SARS PCR* Negative SARS-CoV-2 (Negative)
[2022-05-29 15:00] VITALS: TEMP 35.8; O2SAT 100
[2022-05-29 23:00] VITALS: TEMP 36.8; O2SAT 97
[2022-05-30] MEDS: OXYCODONE 5 MG TABLET PO ×4 (03:49→19:44)
[2022-05-30] MEDS: ACETAMINOPHEN 500 MG TABLET 1000 MG PO ×3 (07:28→19:44)
[2022-05-30] MEDS: SENNOSIDES/DOCUSATE TABLET 2 TAB PO ×2 (07:28→19:44)
[2022-05-30 10:27] VITALS: BP 135/67; PULSE 64; RESP 18; TEMP 36.6; O2SAT 97; BMI 31.3
[2022-05-30 15:58] VITALS: BMI 31.3
[2022-05-30 16:01] VITALS: TEMP 36.7; O2SAT 95
[2022-05-30 23:00] VITALS: TEMP 36.7; O2SAT 94
[2022-05-31] MEDS: OXYCODONE 5 MG TABLET PO ×4 (03:41→19:24)
[2022-05-31 07:00] VITALS: TEMP 36.5; O2SAT 97
[2022-05-31] MEDS: ACETAMINOPHEN 500 MG TABLET 1000 MG PO ×3 (07:02→19:24)
[2022-05-31] MEDS: SENNOSIDES/DOCUSATE TABLET 2 TAB PO ×2 (07:02→19:24)
--- NOTE | 2022-05-31 14:43 | PC.PHA1 ---
TRACER BULLET CHARGING MACHINE OPERATOR PHARMACIST'S MEDICATION REVIEW: MEDICATION MONITORING:No psychotropic medications. IRREGULARITY OR COMMENTS:Patient continues on same medication regimen, baclofen pump refill 06/12/22. Some random behaviors mentioned in nursing notes around hs cares. SUGGESTED COURSE OF ACTION TAKEN:No medication recommendations at this time.
[2022-05-31 15:00] VITALS: TEMP 35.9; O2SAT 98
[2022-05-31 23:00] VITALS: TEMP 36.9; O2SAT 97
[2022-06-01] MEDS: OXYCODONE 5 MG TABLET PO ×4 (03:55→20:52)
[2022-06-01] MEDS: SENNOSIDES/DOCUSATE TABLET 2 TAB PO ×2 (07:26→20:52)
[2022-06-01] MEDS: ACETAMINOPHEN 500 MG TABLET 1000 MG PO ×3 (07:26→20:52)
[2022-06-01 10:30] VITALS: TEMP 36.5; O2SAT 96
[2022-06-01 15:00] VITALS: TEMP 36.3; O2SAT 96
[2022-06-01 23:00] VITALS: TEMP 36.8; O2SAT 96
--- NOTE | 2022-06-02 02:47 | PC.NURSE ---
WEEKLY CHARTING - WEEK 2: Vital signs reviewed- elevated BP values at times. Continue to monitor and update provider as needed. Temporary and comprehensive care plan reviewed - no change. Requires full mechanical lift with 2 staff assist for all transfers. Total assist of 1-2 with bed mobility. Bilateral 1/4 side rails up during cares only. Dependent on staff for w/c mobility. At high risk for falls per last fall risk assessment. Fall interventions: anticipate needs, bed in low position with brakes locked, call light in reach, falling star magnet.
[2022-06-02] MEDS: OXYCODONE 5 MG TABLET PO ×4 (03:48→20:29)
--- NOTE | 2022-06-02 07:21 | PC.NURSE ---
Weekly Charting, Week 2 - Mobility: Comprehensive care plan reviewed, no changes made. Nothing added to temporary care plan. Resident is non ambulatory. Transfers with 2 assists using the margo lift & a large sling. Has a tilt in space wheelchair propelled by staff to/fro all destinations. 1-2 assists with bed /chair positioning. Bilateral 1/4 side rails up only during cares to aid with positioning. Gentle ROM to upper/lower extremities with cares and dressing.? No alarms. Vital signs reviewed, occasional elevated BP. Continue with weekly VS monitoring. Refer to TECHNICAL TRAINER/MD as needed. Fall: Has had no falls. Remains a high fall risk according to assessment done on 05/30/22. Fall Interventions: Call light within reach, bed in low position with brakes locked. falling star magnet in door.
[2022-06-02] MEDS: ACETAMINOPHEN 500 MG TABLET 1000 MG PO ×3 (07:37→20:29)
[2022-06-02] MEDS: SENNOSIDES/DOCUSATE TABLET 2 TAB PO ×2 (07:38→20:29)
[2022-06-02 11:01] VITALS: TEMP 36.9; O2SAT 97
[2022-06-02 15:00] VITALS: TEMP 36.4; O2SAT 98
[2022-06-03 00:16] VITALS: TEMP 36.4; O2SAT 96
[2022-06-03] MEDS: OXYCODONE 5 MG TABLET PO ×4 (03:47→20:05)
[2022-06-03] MEDS: ACETAMINOPHEN 500 MG TABLET 1000 MG PO ×3 (07:15→20:04)
[2022-06-03] MEDS: SENNOSIDES/DOCUSATE TABLET 2 TAB PO ×2 (07:15→20:05)
[2022-06-03 12:58] VITALS: TEMP 36.4; O2SAT 92
[2022-06-03 15:00] VITALS: TEMP 36.4; O2SAT 94
[2022-06-03 23:57] VITALS: TEMP 36.7; O2SAT 94
[2022-06-04] MEDS: OXYCODONE 5 MG TABLET PO ×4 (03:20→19:54)
[2022-06-04] MEDS: ACETAMINOPHEN 500 MG TABLET 1000 MG PO ×3 (07:45→19:53)
[2022-06-04] MEDS: SENNOSIDES/DOCUSATE TABLET 2 TAB PO ×2 (07:45→19:53)
[2022-06-04 11:05] VITALS: TEMP 36.6; O2SAT 90
[2022-06-04 15:00] VITALS: TEMP 36.2; O2SAT 96
[2022-06-04 23:54] VITALS: TEMP 36.7; O2SAT 96
[2022-06-05] MEDS: OXYCODONE 5 MG TABLET PO ×4 (03:35→19:29)
[2022-06-05] MEDS: SENNOSIDES/DOCUSATE TABLET 2 TAB PO ×2 (07:05→19:29)
[2022-06-05] MEDS: ACETAMINOPHEN 500 MG TABLET 1000 MG PO ×3 (07:05→19:29)
--- NOTE | 2022-06-05 12:02 | PC.NURSE ---
COVID OUTBREAK TESTING Resident gave verbal consent for outbreak COVID testing. Resident is currently asymptomatic.? Resident/family will be notified only if resident is positive.
[2022-06-05 13:11] VITALS: TEMP 36.4; O2SAT 98
[2022-06-05 14:44] LABS: SARS PCR* Negative SARS-CoV-2 (Negative)
[2022-06-05 15:16] VITALS: TEMP 36.2; O2SAT 99
[2022-06-05 23:00] VITALS: TEMP 36.7; O2SAT 96
[2022-06-06] MEDS: OXYCODONE 5 MG TABLET PO ×4 (03:42→19:06)
[2022-06-06 07:00] VITALS: BP 141/65; PULSE 60; RESP 16; TEMP 37; O2SAT 96; BMI 30.8
[2022-06-06] MEDS: SENNOSIDES/DOCUSATE TABLET 2 TAB PO ×2 (07:30→19:06)
[2022-06-06] MEDS: ACETAMINOPHEN 500 MG TABLET 1000 MG PO ×3 (07:30→19:06)
--- NOTE | 2022-06-06 10:20 | PC.NURSE ---
MISTY reported resident had a medium BM on 06/05/22. She is therefore not on bowel protocol today.
--- NOTE | 2022-06-06 13:12 | PC.NURSE ---
MDS Clarification: ADLs ? discrepancy in MISTY charting noted. Staff were interviewed. Bed mobility: resident was dependent on staff for all occurrences. Transfers: is a margo lift with 2 staff, total dependence every time. Ambulation in and out of room: did not occur any time, resident is not able to stand or walk. Dressing, required total staff assist for every occurrence. Toileting: is checked and changed by staff and is total assist every time. Hygiene, required total assist every time, resident is unable to perform any of the tasks. All were coded as such on MDS.
--- NOTE | 2022-06-06 14:40 | PC.SOCIAL ---
Resident's care conference was held today. Resident attended and no family was present. Resident is due to go to [facility] on Sunday for her Baclifon pump refill. Resident will transport via EMS since local transport companies could not accommodate. Resident's daughter Imani will ride along with. Resident's mood remains stable with no s/s of depression noted. Resident continues to enjoy activities she likes to attend. Resident loves being outside with warm weather and per last visit is looking forward to summer.
[2022-06-06 15:00] VITALS: TEMP 36.4; O2SAT 92
--- NOTE | 2022-06-06 15:00 | PC.NURSE ---
CARE CONFERENCE: Care conference meeting held with dietary, rn social work and nursing departments today except activities. Resident present. No family members present. SS will reach out to family with any questions/concerns. Dietary advised that wts are stable. Resident does take a dietary supplement at lunch meal. At times resident able to feed self depending on strength for that meal.? Nursing reviewed that resident continues to be total care with adls, transfers, and mobility. Care plan reviewed and updated. POLST reviewed. Uses no restraints.?Bilateral SR up for repositioning only. Medications given my nursing. Vulnerability- is at risk for being harmed due to fragility and mental status. Resident recently had baclofen pump refill done. To follow up before Oct. Daughter Imani will be making appt and following up with nursing of time and day . No questions/concerns at this time.? No plans for discharge at this time.
[2022-06-06 23:00] VITALS: TEMP 36.7; O2SAT 94
[2022-06-07] MEDS: OXYCODONE 5 MG TABLET PO ×4 (04:15→19:12)
[2022-06-07] MEDS: ACETAMINOPHEN 500 MG TABLET 1000 MG PO ×3 (07:11→19:12)
[2022-06-07] MEDS: SENNOSIDES/DOCUSATE TABLET 2 TAB PO ×2 (07:11→19:12)
--- NOTE | 2022-06-07 16:08 | PC.NURSE ---
Tissue Tolerance: Task completed this morning. Resident to be repositioned Q3H.
[2022-06-08] MEDS: OXYCODONE 5 MG TABLET PO ×4 (03:31→19:48)
[2022-06-08] MEDS: SENNOSIDES/DOCUSATE TABLET 2 TAB PO ×2 (07:32→19:46)
[2022-06-08] MEDS: ACETAMINOPHEN 500 MG TABLET 1000 MG PO ×3 (07:32→19:46)
--- NOTE | 2022-06-09 01:05 | PC.NURSE ---
WEEKLY CHARTING WEEK #3 Vital signs reviewed with no concerns Comprehensive and Temporary care plan reviewed no changes made Toileting: Is incontinent both bowel and bladder, Check and changed during first round and 3 rounds at [facility]. Shanae cares, incontinent pad, clothing adjustment managed by the staff. Wears XL briefs. Skin: No skin concerns. Wear heel protector when in bed for protection.
[2022-06-09] MEDS: OXYCODONE 5 MG TABLET PO ×4 (03:54→19:00)
[2022-06-09] MEDS: ACETAMINOPHEN 500 MG TABLET 1000 MG PO ×3 (07:01→19:19)
[2022-06-09] MEDS: SENNOSIDES/DOCUSATE TABLET 2 TAB PO ×2 (07:01→19:19)
--- NOTE | 2022-06-09 14:02 | PC.NURSE ---
Resident refused to eat lunch today despite staff encouragement and reapproaching. She did accept approximately 50% of Ensure Clear supplement. sales training coordinator aware.
--- NOTE | 2022-06-09 14:04 | PC.NURSE ---
Resident did drink remaining Ensure Clear (8 oz total), muffin & Thin mint cookies at this time upon reapproaching.
[2022-06-10] MEDS: OXYCODONE 5 MG TABLET PO ×4 (03:41→19:27)
[2022-06-10] MEDS: ACETAMINOPHEN 500 MG TABLET 1000 MG PO ×3 (07:28→19:27)
[2022-06-10] MEDS: SENNOSIDES/DOCUSATE TABLET 2 TAB PO ×2 (07:29→19:27)
[2022-06-11] MEDS: OXYCODONE 5 MG TABLET PO ×4 (04:01→20:27)
[2022-06-11] MEDS: SENNOSIDES/DOCUSATE TABLET 2 TAB PO ×2 (07:10→20:27)
[2022-06-11] MEDS: ACETAMINOPHEN 500 MG TABLET 1000 MG PO ×3 (07:10→20:27)
[2022-06-12] MEDS: OXYCODONE 5 MG TABLET PO ×4 (03:58→20:02)
[2022-06-12] MEDS: SENNOSIDES/DOCUSATE TABLET 2 TAB PO ×2 (07:01→20:02)
[2022-06-12] MEDS: ACETAMINOPHEN 500 MG TABLET 1000 MG PO ×3 (07:01→20:02)
--- NOTE | 2022-06-12 09:15 | PC.NURSE ---
Appointment: Resident went to [facility] for pump refill via EMS with daughter riding.
--- NOTE | 2022-06-12 12:44 | PC.NURSE ---
Status: Resident back from Dr tre
--- NOTE | 2022-06-12 13:24 | PC.NURSE ---
Return: Back from pump refill appointment. Refill pump before 11/17/22. No schedule at this time yet.
[2022-06-13] MEDS: OXYCODONE 5 MG TABLET PO ×4 (03:52→19:20)
[2022-06-13] MEDS: SENNOSIDES/DOCUSATE TABLET 2 TAB PO ×2 (07:13→19:20)
[2022-06-13] MEDS: ACETAMINOPHEN 500 MG TABLET 1000 MG PO ×3 (07:13→19:20)
[2022-06-13 10:04] VITALS: BP 154/68; PULSE 60; RESP 18; TEMP 36.4; O2SAT 97; BMI 30.9
--- NOTE | 2022-06-13 11:59 | PC.SPIRITC ---
I provided visit for connection and support.
[2022-06-14] MEDS: OXYCODONE 5 MG TABLET PO ×4 (04:14→19:07)
[2022-06-14] MEDS: SENNOSIDES/DOCUSATE TABLET 2 TAB PO ×2 (07:17→19:07)
[2022-06-14] MEDS: ACETAMINOPHEN 500 MG TABLET 1000 MG PO ×3 (07:17→19:07)
[2022-06-15] MEDS: OXYCODONE 5 MG TABLET PO ×4 (04:17→20:44)
[2022-06-15] MEDS: SENNOSIDES/DOCUSATE TABLET 2 TAB PO ×2 (07:47→20:44)
[2022-06-15] MEDS: ACETAMINOPHEN 500 MG TABLET 1000 MG PO ×3 (07:47→20:44)
--- NOTE | 2022-06-16 01:29 | PC.NURSE ---
WEEKLY CHARTING- WEEK 4: Vital signs reviewed - no concerns. Temporary and comprehensive care plan reviewed - no change. Documented behavior of yelling/swearing at staff and attempting to bite x1 in the last 30 days. Does not currently receive any psychotropic medications. Staff anticipate needs. Resident is able to communicate simple needs. No hearing or visual impairment. Cognition moderately impaired r/t dementia. All medications administered by licensed nurse. Health status is stable. ?
[2022-06-16] MEDS: OXYCODONE 5 MG TABLET PO ×4 (03:13→19:21)
--- NOTE | 2022-06-16 07:31 | PC.NURSE ---
Weekly Charting - Week 4: Comprehensive and temporary care plan reviewed. No changes made. & nothing added to temporary care plan. No changes noted in communication, hearing, vision, or orientation. Resident does communicate needs and also staff anticipates. Hearing and vision fine. Cognition is impaired r/t dementia. Chronic health condition stable. Vital signs reviewed, with occasional high BP's. Continue weekly monitoring and refer to provider as needed. Nurse administers all medications. Mood/Behavior:? No issues documented in the last month. But for this month has one episode of resisting cares/swearing and trying to bit staff. Is on no psychotropic medications. Report to provider for changes as needed.
[2022-06-16] MEDS: ACETAMINOPHEN 500 MG TABLET 1000 MG PO ×3 (07:33→19:21)
[2022-06-16] MEDS: SENNOSIDES/DOCUSATE TABLET 2 TAB PO ×2 (07:34→19:21)
[2022-06-17] MEDS: OXYCODONE 5 MG TABLET PO ×4 (03:36→19:09)
[2022-06-17] MEDS: ACETAMINOPHEN 500 MG TABLET 1000 MG PO ×3 (07:36→19:09)
[2022-06-17] MEDS: SENNOSIDES/DOCUSATE TABLET 2 TAB PO ×2 (07:36→19:09)
[2022-06-18] MEDS: OXYCODONE 5 MG TABLET PO ×4 (03:11→19:07)
[2022-06-18] MEDS: ACETAMINOPHEN 500 MG TABLET 1000 MG PO ×3 (07:33→19:07)
[2022-06-18] MEDS: SENNOSIDES/DOCUSATE TABLET 2 TAB PO ×2 (07:34→19:07)
[2022-06-18] MEDS: polyethylene glycoL 238 GM BULK BOTTLE 17 GM PO (08:28)
[2022-06-19] MEDS: OXYCODONE 5 MG TABLET PO ×4 (03:45→19:15)
[2022-06-19] MEDS: SENNOSIDES/DOCUSATE TABLET 2 TAB PO ×2 (07:21→19:15)
[2022-06-19] MEDS: ACETAMINOPHEN 500 MG TABLET 1000 MG PO ×3 (07:21→19:15)
[2022-06-20] MEDS: OXYCODONE 5 MG TABLET PO ×5 (00:01→19:31)
[2022-06-20 07:00] VITALS: BP 136/67; PULSE 58; RESP 16; TEMP 36.6; O2SAT 95; BMI 30.6
[2022-06-20] MEDS: ACETAMINOPHEN 500 MG TABLET 1000 MG PO ×3 (07:20→19:31)
[2022-06-20] MEDS: SENNOSIDES/DOCUSATE TABLET 2 TAB PO ×2 (07:20→19:31)
--- NOTE | 2022-06-20 11:02 | PC.NURSE ---
Addendum entered by Debra Mireles RN 06/20/22 12:46: Correction: yeasty rash on (L) axillary area not on folds. Original Note: Order: GRAVE CLEANER,Renuka here. Updated of yeasty rash on (R) Abd fold. Nystatin powder BID. Okay to change to BID PRN when area is healed.
[2022-06-20] MEDS: NYSTATIN POWDER 1 APPLIC TOPICAL (16:17)
[2022-06-21] MEDS: OXYCODONE 5 MG TABLET PO ×4 (04:08→19:01)
[2022-06-21] MEDS: ACETAMINOPHEN 500 MG TABLET 1000 MG PO ×3 (07:03→19:01)
[2022-06-21] MEDS: SENNOSIDES/DOCUSATE TABLET 2 TAB PO ×2 (07:08→19:01)
[2022-06-21] MEDS: NYSTATIN POWDER 1 APPLIC TOPICAL ×2 (07:08→15:03)
[2022-06-22] MEDS: OXYCODONE 5 MG TABLET PO ×4 (04:00→19:06)
[2022-06-22] MEDS: ACETAMINOPHEN 500 MG TABLET 1000 MG PO ×3 (07:40→19:05)
[2022-06-22] MEDS: SENNOSIDES/DOCUSATE TABLET 2 TAB PO ×2 (07:41→19:06)
[2022-06-22] MEDS: NYSTATIN POWDER 1 APPLIC TOPICAL ×2 (07:41→16:20)
--- NOTE | 2022-06-22 10:40 | PC.SPIRITC ---
I provided visit for connection and support.
--- NOTE | 2022-06-22 11:08 | PC.NURSE ---
Recert Visit: Resident seen by GREENS OR GROUNDS SUPERINTENDENTRenuka. Orders reviewed and renewed of 75 days with no changes.
[2022-06-22] MEDS: polyethylene glycoL 238 GM BULK BOTTLE 17 GM PO (16:44)
--- NOTE | 2022-06-23 01:39 | PC.NURSE ---
WEEKLY CHARTING - WEEK 1: Vital signs reviewed - no concerns. Temporary and comprehensive care plan reviewed - no change. Hx of chronic pain in bilateral lower extremities. Currently receives acetaminophen 1000mg TID and oxycodone 5mg QID. Oxycodone may also be administered Q4 hours PRN. Is able to communicate when in pain. Staff also monitor for non-verbal s/sx of pain. Total assist of 1-2 staff with dressing, grooming, bathing, and oral care. Resident does not participate. No chewing or swallowing problems. Receives a regular diet with regular textures and thin liquids. Requires staff assistance with meals. Staff encourage resident to participate with meals as able.
[2022-06-23] MEDS: OXYCODONE 5 MG TABLET PO ×4 (03:57→20:49)
[2022-06-23] MEDS: ACETAMINOPHEN 500 MG TABLET 1000 MG PO ×3 (07:16→20:49)
[2022-06-23] MEDS: SENNOSIDES/DOCUSATE TABLET 2 TAB PO ×2 (07:16→20:49)
[2022-06-23] MEDS: NYSTATIN POWDER 1 APPLIC TOPICAL ×2 (07:16→15:28)
--- NOTE | 2022-06-23 13:34 | PC.NURSE ---
Weekly Charting, Week 1- ADL's: Comprehensive & temporary care plan reviewed. No changes made. Nothing added to temporary care plan. Resident needs 1-2 assist with dressing and bathing. Bed bath only. One assist with grooming and oral cares.? Needs partial assist with feeding. Staff initiate and encourage to feed self after set up. Is on regular diet, regular texture, thin liquids. No problems with chewing or swallowing noted. Receives nutritional supplement @ noon. Vital signs reviewed, no concerns. Pain: Has chronic lower extremities pain. Pain is controlled with Tylenol 1000mg TID, Oxycodone QID & Q4H PRN and has used occasionally with relief. Is able to tell when in pain and staff also anticipates for non verbal signs/symptoms of pain.
[2022-06-24] MEDS: OXYCODONE 5 MG TABLET PO ×4 (03:19→20:38)
[2022-06-24] MEDS: ACETAMINOPHEN 500 MG TABLET 1000 MG PO ×3 (07:19→20:38)
[2022-06-24] MEDS: NYSTATIN POWDER 1 APPLIC TOPICAL ×2 (07:20→15:46)
[2022-06-24] MEDS: SENNOSIDES/DOCUSATE TABLET 2 TAB PO ×2 (07:20→20:39)
[2022-06-25] MEDS: OXYCODONE 5 MG TABLET PO ×4 (04:28→19:41)
[2022-06-25] MEDS: SENNOSIDES/DOCUSATE TABLET 2 TAB PO ×2 (07:04→19:41)
[2022-06-25] MEDS: ACETAMINOPHEN 500 MG TABLET 1000 MG PO ×3 (07:04→19:41)
[2022-06-25] MEDS: NYSTATIN POWDER 1 APPLIC TOPICAL ×2 (07:04→15:18)
[2022-06-26] MEDS: OXYCODONE 5 MG TABLET PO ×4 (04:09→19:16)
[2022-06-26] MEDS: SENNOSIDES/DOCUSATE TABLET 2 TAB PO ×2 (07:22→19:16)
[2022-06-26] MEDS: ACETAMINOPHEN 500 MG TABLET 1000 MG PO ×3 (07:22→19:16)
[2022-06-26] MEDS: NYSTATIN POWDER 1 APPLIC TOPICAL ×2 (07:22→16:18)
[2022-06-27] MEDS: OXYCODONE 5 MG TABLET PO ×4 (04:07→19:25)
[2022-06-27] MEDS: ACETAMINOPHEN 500 MG TABLET 1000 MG PO ×3 (07:06→19:25)
[2022-06-27] MEDS: SENNOSIDES/DOCUSATE TABLET 2 TAB PO ×2 (07:07→19:25)
[2022-06-27] MEDS: NYSTATIN POWDER 1 APPLIC TOPICAL ×2 (07:07→15:20)
[2022-06-27 13:18] VITALS: BP 111/62; PULSE 63; RESP 18; TEMP 36.3; O2SAT 97
[2022-06-27 13:20] VITALS: BMI 30.6
[2022-06-28] MEDS: OXYCODONE 5 MG TABLET PO ×4 (03:39→19:33)
[2022-06-28] MEDS: SENNOSIDES/DOCUSATE TABLET 2 TAB PO ×2 (07:07→19:33)
[2022-06-28] MEDS: ACETAMINOPHEN 500 MG TABLET 1000 MG PO ×3 (07:07→19:33)
[2022-06-29] MEDS: OXYCODONE 5 MG TABLET PO ×4 (04:34→19:17)
[2022-06-29] MEDS: SENNOSIDES/DOCUSATE TABLET 2 TAB PO ×2 (07:32→19:17)
[2022-06-29] MEDS: ACETAMINOPHEN 500 MG TABLET 1000 MG PO ×3 (07:32→19:17)
--- NOTE | 2022-06-30 00:41 | PC.NURSE ---
WEEKLY CHARTING WEEK 2 Vital signs reviewed. occasional elevated BP. Continue to monitor BP weekly, Update REAL ESTATE AGENT/BROKER as needed. Comprehensive and temporary care plan reviewed with no changes made. Resident is not ambulatory. Requires total assist of 1-2 staff with transfer using Salvador lift, Total assist of 1-2 staff with bed mobility. Has two 1/4 side rail for repositioning, up only during cares. Res is high Fall risk. Fall intervention: Staff anticipated Res needs, call light within reach, bed in low position with brakes lock.
[2022-06-30] MEDS: OXYCODONE 5 MG TABLET PO ×4 (03:27→20:08)
[2022-06-30] MEDS: ACETAMINOPHEN 500 MG TABLET 1000 MG PO ×3 (07:47→20:08)
[2022-06-30] MEDS: SENNOSIDES/DOCUSATE TABLET 2 TAB PO ×2 (07:47→20:08)
--- NOTE | 2022-06-30 07:49 | PC.NURSE ---
Weekly Charting, Week 2 - Mobility: Comprehensive care plan reviewed, no changes made. Nothing added to temporary care plan. Resident is non ambulatory. Transfers with 2 assists using the mechanical lift & a large sling. Has a tilt in space wheelchair propelled by staff to/fro all destinations. 1-2 assists with bed /chair positioning. Bilateral 1/4 side rails up only during cares to aid with positioning. Gentle ROM to upper/lower extremities? with cares and dressing.? No alarms. Vital signs reviewed, occasional elevated BP. Continue with weekly VS monitoring. Refer to GAUGE AND INSTRUMENT INSPECTOR/MD as needed. Fall: Has had no falls. Remains a high fall risk according to assessment done on 05/30/22. Fall Interventions: Call light within reach, bed in low position with brakes locked. falling star magnet in door.
[2022-07-01] MEDS: OXYCODONE 5 MG TABLET PO ×4 (03:59→19:30)
[2022-07-01] MEDS: SENNOSIDES/DOCUSATE TABLET 2 TAB PO ×2 (07:29→19:30)
[2022-07-01] MEDS: ACETAMINOPHEN 500 MG TABLET 1000 MG PO ×3 (07:29→19:30)
[2022-07-02] MEDS: OXYCODONE 5 MG TABLET PO ×4 (04:38→19:55)
[2022-07-02] MEDS: SENNOSIDES/DOCUSATE TABLET 2 TAB PO ×2 (07:35→19:55)
[2022-07-02] MEDS: ACETAMINOPHEN 500 MG TABLET 1000 MG PO ×3 (07:35→19:55)
[2022-07-03] MEDS: OXYCODONE 5 MG TABLET PO ×4 (03:55→19:35)
[2022-07-03] MEDS: SENNOSIDES/DOCUSATE TABLET 2 TAB PO ×2 (07:37→19:35)
[2022-07-03] MEDS: ACETAMINOPHEN 500 MG TABLET 1000 MG PO ×3 (07:37→19:35)
[2022-07-04] MEDS: OXYCODONE 5 MG TABLET PO ×4 (04:30→19:24)
[2022-07-04 06:56] VITALS: BMI 30.2
[2022-07-04 07:00] VITALS: BP 135/83; PULSE 60; RESP 18; TEMP 36.7; O2SAT 93
[2022-07-04] MEDS: ACETAMINOPHEN 500 MG TABLET 1000 MG PO ×3 (07:36→19:24)
[2022-07-04] MEDS: SENNOSIDES/DOCUSATE TABLET 2 TAB PO ×2 (07:37→19:24)
[2022-07-04 13:04] VITALS: BMI 66.7
[2022-07-05] MEDS: OXYCODONE 5 MG TABLET PO ×4 (03:30→19:25)
[2022-07-05] MEDS: ACETAMINOPHEN 500 MG TABLET 1000 MG PO ×3 (07:02→19:25)
[2022-07-05] MEDS: SENNOSIDES/DOCUSATE TABLET 2 TAB PO ×2 (07:03→19:25)
--- NOTE | 2022-07-05 16:17 | PC.SPIRITC ---
I provided visit for companionship as Marshall waited for breakfast.
[2022-07-06] MEDS: OXYCODONE 5 MG TABLET PO ×4 (03:48→19:10)
[2022-07-06] MEDS: polyethylene glycoL 238 GM BULK BOTTLE 17 GM PO (07:45)
[2022-07-06] MEDS: ACETAMINOPHEN 500 MG TABLET 1000 MG PO ×3 (07:47→19:10)
[2022-07-06] MEDS: SENNOSIDES/DOCUSATE TABLET 2 TAB PO ×2 (07:47→19:10)
--- NOTE | 2022-07-07 01:33 | PC.NURSE ---
WEEKLY CHARTING WEEK 3 Vital signs reviewed, Occasional BP elevated, Continue to check weekly, notify COVER OPERATOR as needed. Comprehensive and Temporary care plan reviewed with no changes made. Skin: Redness on Right axilla, Nystatin powder applied. Wear heel protector when in bed for protection. Toileting: Res is incontinent both bowel and bladder, Check and changed during first round and 3 rounds at Night. Shanae cares, incontinent pad, clothing adjustment managed by the staff 1 assist. Wears XL briefs. ?
[2022-07-07] MEDS: OXYCODONE 5 MG TABLET PO ×4 (03:42→19:40)
[2022-07-07] MEDS: ACETAMINOPHEN 500 MG TABLET 1000 MG PO ×3 (08:02→19:40)
[2022-07-07] MEDS: SENNOSIDES/DOCUSATE TABLET 2 TAB PO ×2 (08:03→19:40)
--- NOTE | 2022-07-07 10:25 | PC.NURSE ---
Weekly Charting, Week 3-Toileting: Comprehensive & temporary care plan reviewed. No changes made. Nothing added to temporary care plan. Resident does not use the toilet. She is incontinent of bowel and bladder. Is checked and changed every 2 hours and PRN with 1-2 assists. Wears large briefs. All toileting needs including pads, enriqueta cares and clothing managed by staff. Vital signs reviewed, occasional mild BP elevation. Continue with weekly monitoring and refer to provider as needed. Skin: No issues at this time. Heel boots when in bed & wheelchair.? Lotion to both legs and feet during cares in AM & HS. Skin is routinely checked during cares and on bath day.
[2022-07-08] MEDS: OXYCODONE 5 MG TABLET PO ×5 (00:02→19:20)
[2022-07-08] MEDS: ACETAMINOPHEN 500 MG TABLET 1000 MG PO ×3 (07:58→19:20)
[2022-07-08] MEDS: SENNOSIDES/DOCUSATE TABLET 2 TAB PO ×2 (07:59→19:20)
[2022-07-09] MEDS: OXYCODONE 5 MG TABLET PO ×4 (03:37→19:14)
[2022-07-09] MEDS: SENNOSIDES/DOCUSATE TABLET 2 TAB PO ×2 (07:21→19:14)
[2022-07-09] MEDS: ACETAMINOPHEN 500 MG TABLET 1000 MG PO ×3 (07:21→19:14)
[2022-07-10] MEDS: OXYCODONE 5 MG TABLET PO ×4 (04:34→19:03)
[2022-07-10] MEDS: SENNOSIDES/DOCUSATE TABLET 2 TAB PO ×2 (07:53→19:03)
[2022-07-10] MEDS: ACETAMINOPHEN 500 MG TABLET 1000 MG PO ×3 (07:53→19:03)
[2022-07-11] MEDS: OXYCODONE 5 MG TABLET PO ×4 (04:10→19:31)
[2022-07-11] MEDS: ACETAMINOPHEN 500 MG TABLET 1000 MG PO ×3 (07:19→19:31)
[2022-07-11] MEDS: SENNOSIDES/DOCUSATE TABLET 2 TAB PO ×2 (07:19→19:31)
[2022-07-11 10:12] VITALS: BMI 30.6
[2022-07-11 10:13] VITALS: BP 130/70; PULSE 64; RESP 18; TEMP 36.4; O2SAT 96
--- NOTE | 2022-07-11 15:20 | PC.PHA1 ---
REFERRAL AGENT PHARMACIST'S MEDICATION REVIEW: MEDICATION MONITORING:No psychotropic medications. IRREGULARITY OR COMMENTS:Patient continues on same medication regimen. Oxycodone prn needed couple times now in June. No medication related issues noticed in nursing notes. SUGGESTED COURSE OF ACTION TAKEN:No medication recommendations this review.
[2022-07-12] MEDS: OXYCODONE 5 MG TABLET PO ×4 (03:56→19:51)
[2022-07-12] MEDS: SENNOSIDES/DOCUSATE TABLET 2 TAB PO ×2 (07:04→19:51)
[2022-07-12] MEDS: ACETAMINOPHEN 500 MG TABLET 1000 MG PO ×3 (07:04→19:50)
--- NOTE | 2022-07-12 11:44 | PC.NURSE ---
Podiatry: Resident seen by psych nurse in house service.
[2022-07-13] MEDS: OXYCODONE 5 MG TABLET PO ×4 (04:35→19:34)
[2022-07-13] MEDS: ACETAMINOPHEN 500 MG TABLET 1000 MG PO ×3 (07:11→19:34)
[2022-07-13] MEDS: SENNOSIDES/DOCUSATE TABLET 2 TAB PO ×2 (07:11→19:34)
--- NOTE | 2022-07-14 00:41 | PC.NURSE ---
WEEKLY CHARTING WEEK 4: Vital signs reviewed. BP somehow elevated, Continue to monitor weekly, Update MAORI PHYSIOTHERAPIST as needed. Res is not on psychotropic medication. No behavior recorded in the past moth. Hearing is intact, No visual impairment. Cognition is moderate impaired r/t dementia. Able to communicate basic needs, Staff anticipate needs. All medication administer by license nurse. Health condition is stable.
[2022-07-14] MEDS: OXYCODONE 5 MG TABLET PO ×4 (04:06→19:23)
--- NOTE | 2022-07-14 07:25 | PC.NURSE ---
Weekly Charting - Week 4: Comprehensive and temporary care plan reviewed. No changes made. & nothing added to temporary care plan. No changes noted in communication, hearing, vision, or orientation. Resident does communicate needs and also staff anticipates. Hearing and vision fine. Cognition is impaired r/t dementia. Chronic health condition stable. Vital signs reviewed, no concerns. Continue weekly monitoring and refer to provider as needed. Nurse administers all medications. Mood/Behavior:? Has one episode of resisting cares but was redirectable. Is on no psychotropic medications.
[2022-07-14] MEDS: SENNOSIDES/DOCUSATE TABLET 2 TAB PO ×2 (08:01→19:23)
[2022-07-14] MEDS: ACETAMINOPHEN 500 MG TABLET 1000 MG PO ×3 (08:01→19:22)
[2022-07-15] MEDS: OXYCODONE 5 MG TABLET PO ×4 (04:00→19:03)
[2022-07-15] MEDS: ACETAMINOPHEN 500 MG TABLET 1000 MG PO ×3 (07:49→19:03)
[2022-07-15] MEDS: SENNOSIDES/DOCUSATE TABLET 2 TAB PO ×2 (07:50→19:03)
[2022-07-16] MEDS: OXYCODONE 5 MG TABLET PO ×4 (04:20→19:24)
[2022-07-16] MEDS: SENNOSIDES/DOCUSATE TABLET 2 TAB PO ×2 (07:57→19:24)
[2022-07-16] MEDS: ACETAMINOPHEN 500 MG TABLET 1000 MG PO ×3 (07:57→19:23)
[2022-07-17] MEDS: OXYCODONE 5 MG TABLET PO ×4 (03:43→19:34)
[2022-07-17] MEDS: SENNOSIDES/DOCUSATE TABLET 2 TAB PO ×2 (07:41→19:34)
[2022-07-17] MEDS: ACETAMINOPHEN 500 MG TABLET 1000 MG PO ×3 (07:41→19:34)
[2022-07-17] MEDS: polyethylene glycoL 238 GM BULK BOTTLE 17 GM PO (10:38)
[2022-07-18] MEDS: OXYCODONE 5 MG TABLET PO ×4 (03:26→19:59)
[2022-07-18] MEDS: ACETAMINOPHEN 500 MG TABLET 1000 MG PO ×3 (07:05→19:59)
[2022-07-18] MEDS: SENNOSIDES/DOCUSATE TABLET 2 TAB PO ×2 (07:05→19:59)
[2022-07-18 09:54] VITALS: BP 155/58; PULSE 72; RESP 18; TEMP 36.6; O2SAT 96
--- NOTE | 2022-07-18 09:56 | PC.NURSE ---
Resident has 4 episode of loose stool in the morning . She was kept in her room for breakfast. She had 80% of breakfast, no episode of nausea or vomiting. Vital are WNL .T 97.8, P72, BP 155/58 and O2 96. Staff will continue to monitor.
[2022-07-19] MEDS: OXYCODONE 5 MG TABLET PO ×4 (04:00→19:39)
[2022-07-19] MEDS: SENNOSIDES/DOCUSATE TABLET 2 TAB PO ×2 (07:04→19:39)
[2022-07-19] MEDS: ACETAMINOPHEN 500 MG TABLET 1000 MG PO ×3 (07:04→19:39)
[2022-07-20] MEDS: OXYCODONE 5 MG TABLET PO ×4 (04:03→19:32)
[2022-07-20] MEDS: ACETAMINOPHEN 500 MG TABLET 1000 MG PO ×3 (07:48→19:32)
[2022-07-20] MEDS: SENNOSIDES/DOCUSATE TABLET 2 TAB PO ×2 (07:49→19:32)
[2022-07-21] MEDS: OXYCODONE 5 MG TABLET PO ×4 (04:07→19:52)
[2022-07-21] MEDS: ACETAMINOPHEN 500 MG TABLET 1000 MG PO ×3 (07:22→19:52)
[2022-07-21] MEDS: SENNOSIDES/DOCUSATE TABLET 2 TAB PO ×2 (07:22→19:52)
[2022-07-22] MEDS: OXYCODONE 5 MG TABLET PO ×4 (04:00→20:03)
[2022-07-22] MEDS: SENNOSIDES/DOCUSATE TABLET 2 TAB PO ×2 (07:19→20:03)
[2022-07-22] MEDS: ACETAMINOPHEN 500 MG TABLET 1000 MG PO ×3 (07:19→20:03)
[2022-07-22] MEDS: bisacodyL 10 MG SUPP.RECT PR (12:44)
[2022-07-23] MEDS: OXYCODONE 5 MG TABLET PO ×4 (04:04→19:41)
[2022-07-23] MEDS: SENNOSIDES/DOCUSATE TABLET 2 TAB PO ×2 (07:08→19:41)
[2022-07-23] MEDS: ACETAMINOPHEN 500 MG TABLET 1000 MG PO ×3 (07:08→19:41)
[2022-07-24] MEDS: OXYCODONE 5 MG TABLET PO ×4 (04:24→19:49)
[2022-07-24] MEDS: SENNOSIDES/DOCUSATE TABLET 2 TAB PO ×2 (07:21→19:48)
[2022-07-24] MEDS: ACETAMINOPHEN 500 MG TABLET 1000 MG PO ×3 (07:21→19:47)
[2022-07-24] MEDS: MAGNESIUM HYDROXIDE 30 ML ORAL.SUSP PO (15:00)
[2022-07-25] MEDS: OXYCODONE 5 MG TABLET PO ×4 (04:25→19:15)
[2022-07-25 07:00] VITALS: BMI 30.8
[2022-07-25] MEDS: ACETAMINOPHEN 500 MG TABLET 1000 MG PO ×3 (07:04→19:15)
[2022-07-25] MEDS: SENNOSIDES/DOCUSATE TABLET 2 TAB PO ×2 (07:05→19:15)
[2022-07-25 07:49] VITALS: BP 152/70; PULSE 62; RESP 16; TEMP 36.6; O2SAT 96
[2022-07-26] MEDS: OXYCODONE 5 MG TABLET PO ×4 (04:01→19:01)
[2022-07-26] MEDS: SENNOSIDES/DOCUSATE TABLET 2 TAB PO ×2 (07:10→19:01)
[2022-07-26] MEDS: ACETAMINOPHEN 500 MG TABLET 1000 MG PO ×3 (07:10→19:00)
[2022-07-27] MEDS: OXYCODONE 5 MG TABLET PO ×4 (04:19→20:30)
[2022-07-27] MEDS: ACETAMINOPHEN 500 MG TABLET 1000 MG PO ×3 (07:31→20:30)
[2022-07-27] MEDS: SENNOSIDES/DOCUSATE TABLET 2 TAB PO ×2 (07:31→20:30)
--- NOTE | 2022-07-28 01:41 | PC.NURSE ---
Weekly Charting Week 1: Vitals signs reviewed. BP somehow elevated. Continue to check weekly, Notify HARD ROCK MINER as needed. Comprehensive and temporary care plan reviewed with no changes made. Has history of chronic pain in bilateral lower extremities. Currently on acetaminophen 1000mg TID and oxycodone 5mg QID. Oxycodone may also be administered Q4 hours PRN. Is able to communicate when in pain. Staff also monitor for non-verbal s/sx of pain. Total assist of 1-2 staff with dressing, grooming, bathing, and oral care. Resident does not participate. No chewing or swallowing problems. Receives a regular diet with regular textures and thin liquids. Seat on feeding table, needs to encourage to participate during meals.
[2022-07-28] MEDS: OXYCODONE 5 MG TABLET PO ×4 (04:07→19:47)
[2022-07-28] MEDS: ACETAMINOPHEN 500 MG TABLET 1000 MG PO ×3 (07:57→19:47)
[2022-07-28] MEDS: SENNOSIDES/DOCUSATE TABLET 2 TAB PO ×2 (07:57→19:47)
--- NOTE | 2022-07-28 13:57 | PC.NURSE ---
Weekly Charting, Week 1- ADL's: Comprehensive & temporary care plan reviewed. No changes made. Nothing added to temporary care plan. Resident needs 1-2 assist with dressing and bathing. Bed bath only. One assist with grooming and oral cares.? Needs partial assist with feeding. Staff initiate and encourage to feed self after set up. Is on regular diet, regular texture, thin liquids. No problems with chewing or swallowing noted. Receives nutritional supplement @ noon. Vital signs reviewed, with few episodes of elevated BP. Continue weekly monitoring and refer to provider as needed. Pain: Has chronic lower extremities pain. Pain is controlled with Tylenol 1000mg TID, Oxycodone QID & Q4H PRN and has used occasionally with relief. Is able to tell when in pain and staff also anticipates for non verbal signs/symptoms of pain.
[2022-07-29] MEDS: OXYCODONE 5 MG TABLET PO ×4 (03:59→19:09)
[2022-07-29] MEDS: SENNOSIDES/DOCUSATE TABLET 2 TAB PO ×2 (07:57→19:09)
[2022-07-29] MEDS: ACETAMINOPHEN 500 MG TABLET 1000 MG PO ×3 (07:57→19:08)
[2022-07-30] MEDS: OXYCODONE 5 MG TABLET PO ×4 (04:19→19:29)
[2022-07-30] MEDS: SENNOSIDES/DOCUSATE TABLET 2 TAB PO ×2 (07:51→19:29)
[2022-07-30] MEDS: ACETAMINOPHEN 500 MG TABLET 1000 MG PO ×3 (07:51→19:29)
[2022-07-31] MEDS: OXYCODONE 5 MG TABLET PO ×4 (04:21→19:00)
[2022-07-31] MEDS: ACETAMINOPHEN 500 MG TABLET 1000 MG PO ×3 (07:20→19:00)
[2022-07-31] MEDS: SENNOSIDES/DOCUSATE TABLET 2 TAB PO ×2 (07:20→19:00)
[2022-08-01] MEDS: OXYCODONE 5 MG TABLET PO ×4 (04:10→19:22)
[2022-08-01] MEDS: ACETAMINOPHEN 500 MG TABLET 1000 MG PO ×3 (07:05→19:22)
[2022-08-01] MEDS: SENNOSIDES/DOCUSATE TABLET 2 TAB PO ×2 (07:05→19:22)
[2022-08-01 10:35] VITALS: BP 108/60; PULSE 67; RESP 18; TEMP 37
[2022-08-01 10:48] VITALS: BMI 29.7
[2022-08-02] MEDS: OXYCODONE 5 MG TABLET PO ×4 (04:32→19:02)
[2022-08-02] MEDS: SENNOSIDES/DOCUSATE TABLET 2 TAB PO ×2 (07:31→19:02)
[2022-08-02] MEDS: ACETAMINOPHEN 500 MG TABLET 1000 MG PO ×3 (07:31→19:02)
--- NOTE | 2022-08-02 14:39 | PC.SPIRITC ---
I provided visit for connection and support, spent time with Marshall on the patio.
[2022-08-03] MEDS: OXYCODONE 5 MG TABLET PO ×4 (04:17→19:20)
[2022-08-03] MEDS: ACETAMINOPHEN 500 MG TABLET 1000 MG PO ×3 (07:42→19:20)
[2022-08-03] MEDS: SENNOSIDES/DOCUSATE TABLET 2 TAB PO ×2 (07:43→19:20)
--- NOTE | 2022-08-03 23:34 | PC.NURSE ---
Weekly Charting Week 2 MOBILITY: Vital signs reviewed. Occasional BP reading elevated. Continue to monitor weekly, update provider as needed. ?Comprehensive and temporary care plan reviewed with no changes made.? Resident vasquez not ambulate. Requires total assist of 1-2 staff? with transfer using Salvador lift, Salvador sling to remain under resident in wheelchair because when staff attempted to remove resident yells out and grabs out staff. Total assist of 1-2 staff with bed mobility. Has two 1/4 side rail for repositioning, up only during cares. Staff wheel to/from all destination. Res is high Fall risk. Fall intervention: Staff anticipated Res needs, call light within reach, bed in low position with brakes lock.
[2022-08-04] MEDS: OXYCODONE 5 MG TABLET PO ×4 (04:12→19:26)
[2022-08-04] MEDS: SENNOSIDES/DOCUSATE TABLET 2 TAB PO ×2 (07:19→19:26)
[2022-08-04] MEDS: ACETAMINOPHEN 500 MG TABLET 1000 MG PO ×3 (07:19→19:26)
--- NOTE | 2022-08-04 09:11 | PC.NURSE ---
Weekly Charting, Week 2 - Mobility: Comprehensive care plan reviewed, no changes made. Nothing added to temporary care plan. Resident is non ambulatory. Transfers with 2 assists using the mechanical? lift & a large sling. Has a tilt in space wheelchair propelled by staff to/fro all destinations. 1-2 assists with bed /chair positioning. Bilateral 1/4 side rails up only during cares to aid with positioning. Gentle ROM to upper/lower extremities? with cares and dressing.? No alarms. Vital signs reviewed, occasional elevated BP. Continue with weekly VS monitoring. Refer to CUSTOMER EXPERIENCE STRATEGIST/MD as needed. Fall: Has had no falls. Remains a high fall risk according to assessment done on 05/30/22. Fall Interventions: Call light within reach, bed in low position with brakes locked. falling star magnet in door.
[2022-08-05] MEDS: OXYCODONE 5 MG TABLET PO ×4 (04:00→19:06)
[2022-08-05] MEDS: ACETAMINOPHEN 500 MG TABLET 1000 MG PO ×3 (07:15→19:04)
[2022-08-05] MEDS: SENNOSIDES/DOCUSATE TABLET 2 TAB PO ×2 (07:16→19:04)
[2022-08-06] MEDS: OXYCODONE 5 MG TABLET PO ×4 (03:50→19:53)
[2022-08-06] MEDS: ACETAMINOPHEN 500 MG TABLET 1000 MG PO ×3 (07:05→19:53)
[2022-08-06] MEDS: SENNOSIDES/DOCUSATE TABLET 2 TAB PO ×2 (07:05→19:53)
[2022-08-07] MEDS: OXYCODONE 5 MG TABLET PO ×4 (03:37→19:37)
[2022-08-07] MEDS: ACETAMINOPHEN 500 MG TABLET 1000 MG PO ×3 (08:23→19:37)
[2022-08-07] MEDS: SENNOSIDES/DOCUSATE TABLET 2 TAB PO ×2 (08:23→19:37)
[2022-08-08] MEDS: OXYCODONE 5 MG TABLET PO ×4 (04:27→19:31)
[2022-08-08 07:00] VITALS: BMI 30.9
[2022-08-08] MEDS: ACETAMINOPHEN 500 MG TABLET 1000 MG PO ×3 (07:11→19:31)
[2022-08-08] MEDS: SENNOSIDES/DOCUSATE TABLET 2 TAB PO ×2 (07:11→19:31)
[2022-08-08 09:30] VITALS: BP 146/63; PULSE 61; RESP 16; TEMP 35.6; O2SAT 97
[2022-08-08] MEDS: NYSTATIN POWDER 1 APPLIC TOPICAL ×2 (09:37→22:25)
[2022-08-08 14:26] VITALS: BMI 30.8
--- NOTE | 2022-08-08 14:27 | PC.NURSE ---
Weight note: Bath weight of 174.4 obtained on EZ lift scale after bath this morning. Last week's weight noted to be 168 on same scale per documentation. Business Objects Architect requested staff reweigh resident and weight of 174 was obtained on EZ lift scale. Resident's weight noted to be 174 two weeks ago so last week's weight likely to be off from baseline.
[2022-08-09] MEDS: OXYCODONE 5 MG TABLET PO ×4 (04:06→19:22)
[2022-08-09] MEDS: SENNOSIDES/DOCUSATE TABLET 2 TAB PO ×2 (07:02→19:22)
[2022-08-09] MEDS: ACETAMINOPHEN 500 MG TABLET 1000 MG PO ×3 (07:02→19:22)
--- NOTE | 2022-08-09 16:05 | PC.SPIRITC ---
I provided visit for connection and support on patio.
[2022-08-09] MEDS: NYSTATIN POWDER 1 APPLIC TOPICAL (20:58)
[2022-08-10] MEDS: OXYCODONE 5 MG TABLET PO ×4 (04:29→19:46)
[2022-08-10] MEDS: SENNOSIDES/DOCUSATE TABLET 2 TAB PO ×2 (07:16→19:46)
[2022-08-10] MEDS: ACETAMINOPHEN 500 MG TABLET 1000 MG PO ×3 (07:16→19:46)
--- NOTE | 2022-08-11 01:01 | PC.NURSE ---
Weekly Charting Week 3 Toileting and SKIN: Vital signs reviewed. Occasional BP elevated, Continue to check weekly, update provider as needed. Comprehensive and Temporary care plan reviewed with no changes made. Toileting: Res is? incontinent both bowel and bladder, Check and changed during first round and 3 rounds at Night. Shanae cares, incontinent pad, clothing adjustment managed by the staff 1 assist. Wears XL briefs. SKIN: Redness on Right axilla, Nystatin powder applied.? Wear heel protector when in bed for protection
[2022-08-11] MEDS: OXYCODONE 5 MG TABLET PO ×4 (04:01→19:14)
[2022-08-11] MEDS: ACETAMINOPHEN 500 MG TABLET 1000 MG PO ×3 (07:44→19:14)
[2022-08-11] MEDS: SENNOSIDES/DOCUSATE TABLET 2 TAB PO ×2 (07:45→19:14)
--- NOTE | 2022-08-11 11:52 | PC.NURSE ---
Weekly Charting, Week 3-Toileting: Comprehensive & temporary care plan reviewed. No changes made. Nothing added to temporary care plan. Resident does not use the toilet. She is incontinent of bowel and bladder. Is checked and changed every 2 hours and PRN with 1-2 assists. Wears large briefs. All toileting needs including pads, enriqueta cares and clothing managed by staff. Vital signs reviewed, BP varies. Continue with weekly monitoring and refer to provider as needed. Skin: Has redness on (R) armpit. Nystatin powder applied until healed. Heel boots when in bed & wheelchair.? Lotion to both legs and feet during cares in AM & HS. Skin is routinely checked during cares and on bath day.
[2022-08-11] MEDS: NYSTATIN POWDER 1 APPLIC TOPICAL (21:56)
[2022-08-12] MEDS: OXYCODONE 5 MG TABLET PO ×4 (04:11→19:26)
[2022-08-12] MEDS: ACETAMINOPHEN 500 MG TABLET 1000 MG PO ×3 (07:41→19:26)
[2022-08-12] MEDS: SENNOSIDES/DOCUSATE TABLET 2 TAB PO ×2 (07:41→19:26)
[2022-08-12] MEDS: NYSTATIN POWDER 1 APPLIC TOPICAL (20:14)
[2022-08-13] MEDS: OXYCODONE 5 MG TABLET PO ×4 (04:30→19:11)
[2022-08-13] MEDS: ACETAMINOPHEN 500 MG TABLET 1000 MG PO ×3 (07:39→19:10)
[2022-08-13] MEDS: SENNOSIDES/DOCUSATE TABLET 2 TAB PO ×2 (07:40→19:11)
[2022-08-13] MEDS: NYSTATIN POWDER 1 APPLIC TOPICAL ×3 (11:03→21:35)
[2022-08-14] MEDS: OXYCODONE 5 MG TABLET PO ×4 (04:00→19:02)
[2022-08-14] MEDS: SENNOSIDES/DOCUSATE TABLET 2 TAB PO ×2 (08:10→19:02)
[2022-08-14] MEDS: ACETAMINOPHEN 500 MG TABLET 1000 MG PO ×3 (08:10→19:02)
[2022-08-15] MEDS: OXYCODONE 5 MG TABLET PO ×4 (03:30→19:08)
[2022-08-15 07:00] VITALS: BMI 31.5
[2022-08-15] MEDS: SENNOSIDES/DOCUSATE TABLET 2 TAB PO ×2 (07:11→19:07)
[2022-08-15] MEDS: ACETAMINOPHEN 500 MG TABLET 1000 MG PO ×3 (07:11→19:07)
[2022-08-15 11:16] VITALS: BP 90/57; PULSE 61; RESP 16; TEMP 36.7; O2SAT 96
[2022-08-15 13:55] VITALS: BMI 31.4
[2022-08-16] MEDS: OXYCODONE 5 MG TABLET PO ×4 (03:41→19:19)
[2022-08-16] MEDS: ACETAMINOPHEN 500 MG TABLET 1000 MG PO ×3 (07:02→19:19)
[2022-08-16] MEDS: SENNOSIDES/DOCUSATE TABLET 2 TAB PO ×2 (07:02→19:19)
--- NOTE | 2022-08-16 08:38 | PC.PHA1 ---
DOCK ATTENDANT PHARMACIST'S MEDICATION REVIEW: MEDICATION MONITORING:no psychotropic medication prescribed this review IRREGULARITY OR COMMENTS:After review of RN and MD notes no medication related issues noted. Patient continues on same medication regimen to manage her MS and pain ~ baclofen pump, oxycodone and acetaminophen. As need baclofen has not been needed but med. order should remain on MAR in the event that pump malfunctions. SUGGESTED COURSE OF ACTION TAKEN:No medication recommendations at this time.
[2022-08-16] MEDS: NYSTATIN POWDER 1 APPLIC TOPICAL (21:50)
[2022-08-17] MEDS: OXYCODONE 5 MG TABLET PO ×4 (04:09→20:03)
[2022-08-17] MEDS: NYSTATIN POWDER 1 APPLIC TOPICAL ×2 (06:30→20:38)
[2022-08-17] MEDS: SENNOSIDES/DOCUSATE TABLET 2 TAB PO ×2 (08:01→20:03)
[2022-08-17] MEDS: ACETAMINOPHEN 500 MG TABLET 1000 MG PO ×3 (08:01→20:03)
--- NOTE | 2022-08-18 00:48 | PC.NURSE ---
Weekly Charting Week 4: Vital signs reviewed. BP reading variables, Continue to monitor weekly, Update Provider as needed. Res is not on? psychotropic medication. No behavior recorded in the past moth. Hearing is intact, No visual impairment. Cognition is moderate impaired r/t dementia. Able to communicate basic needs, Staff anticipate needs. All medication administer by license nurse. Health condition is stable.
[2022-08-18] MEDS: OXYCODONE 5 MG TABLET PO ×4 (04:00→19:37)
--- NOTE | 2022-08-18 06:46 | PC.NURSE ---
Weekly Charting - Week 4: Comprehensive and temporary care plan reviewed. No changes made. & nothing added to temporary care plan. No changes noted in communication, hearing, vision, or orientation. Resident does communicate needs and also staff anticipates. Hearing and vision fine. Cognition is impaired r/t dementia. Chronic health condition stable. Vital signs reviewed, BP's is variable. Continue weekly monitoring and refer to provider as needed. Nurse administers all medications. Mood/Behavior:? No issues documented for the past month. Is on no psychotropic medications.
[2022-08-18] MEDS: ACETAMINOPHEN 500 MG TABLET 1000 MG PO ×3 (07:19→19:36)
[2022-08-18] MEDS: SENNOSIDES/DOCUSATE TABLET 2 TAB PO ×2 (07:19→19:37)
[2022-08-19] MEDS: OXYCODONE 5 MG TABLET PO ×4 (03:32→19:20)
[2022-08-19] MEDS: SENNOSIDES/DOCUSATE TABLET 2 TAB PO ×2 (07:21→19:20)
[2022-08-19] MEDS: ACETAMINOPHEN 500 MG TABLET 1000 MG PO ×3 (07:21→19:20)
--- NOTE | 2022-08-19 16:43 | PC.SPIRITC ---
Bobbin Doffer provided supportive visit to resident.
[2022-08-20] MEDS: OXYCODONE 5 MG TABLET PO ×4 (03:54→19:04)
[2022-08-20] MEDS: ACETAMINOPHEN 500 MG TABLET 1000 MG PO ×3 (07:04→19:04)
[2022-08-20] MEDS: SENNOSIDES/DOCUSATE TABLET 2 TAB PO ×2 (07:05→19:04)
[2022-08-21] MEDS: OXYCODONE 5 MG TABLET PO ×4 (03:55→19:15)
[2022-08-21] MEDS: ACETAMINOPHEN 500 MG TABLET 1000 MG PO ×3 (07:18→19:18)
[2022-08-21] MEDS: SENNOSIDES/DOCUSATE TABLET 2 TAB PO ×2 (07:19→19:19)
[2022-08-22] MEDS: OXYCODONE 5 MG TABLET PO ×4 (04:12→19:32)
[2022-08-22 07:00] VITALS: BP 109/62; PULSE 70; RESP 17; TEMP -8.3; TEMP 17; O2SAT 97
[2022-08-22] MEDS: SENNOSIDES/DOCUSATE TABLET 2 TAB PO ×2 (07:14→19:32)
[2022-08-22] MEDS: ACETAMINOPHEN 500 MG TABLET 1000 MG PO ×3 (07:14→19:32)
[2022-08-22 10:40] VITALS: BMI 30.8
[2022-08-23] MEDS: OXYCODONE 5 MG TABLET PO ×4 (04:11→19:29)
[2022-08-23] MEDS: SENNOSIDES/DOCUSATE TABLET 2 TAB PO ×2 (07:19→19:29)
[2022-08-23] MEDS: ACETAMINOPHEN 500 MG TABLET 1000 MG PO ×3 (07:19→19:29)
[2022-08-24] MEDS: OXYCODONE 5 MG TABLET PO ×4 (03:41→19:21)
[2022-08-24] MEDS: ACETAMINOPHEN 500 MG TABLET 1000 MG PO ×3 (07:03→19:21)
[2022-08-24] MEDS: SENNOSIDES/DOCUSATE TABLET 2 TAB PO ×2 (07:04→19:21)
[2022-08-25] MEDS: OXYCODONE 5 MG TABLET PO ×5 (00:22→19:04)
--- NOTE | 2022-08-25 03:01 | PC.NURSE ---
Weekly Charting-Week 1:Reviewed vital signs and noted B/P's to be variable. Continue to monitor and update OFFSET PLATE MAKER as needed. No changes noted to the Temporary or Comprehensive Care Plans. She has pain history in the bilateral lower extremities due to her MS diagnosis. She receives Tylenol 1000mg TID as well as Oxycodone 5mg QID and Q 4 hrs as needed. She requires total assistance for bathing,dressing,grooming and oral cares due to her debility with her MS. Resident has a good appetite in the morning and noon and randomly at dinner. She does feed herself as much as she can but does require set up and encouragement to eat. She does not have any issues with swallowing or choking with eating.
[2022-08-25] MEDS: SENNOSIDES/DOCUSATE TABLET 2 TAB PO ×2 (08:00→19:04)
[2022-08-25] MEDS: ACETAMINOPHEN 500 MG TABLET 1000 MG PO ×3 (08:00→19:04)
[2022-08-25] MEDS: polyethylene glycoL 238 GM BULK BOTTLE 17 GM PO (11:25)
--- NOTE | 2022-08-25 11:35 | PC.NURSE ---
Weekly Charting, Week 1- ADL's: Comprehensive & temporary care plan reviewed. No changes made. Nothing added to temporary care plan. Resident needs 1-2 assist with dressing and bathing. Bed bath only. One assist with grooming and oral cares.? Needs partial assist with feeding. Staff initiate and encourage to feed self after set up. Is on regular diet, regular texture, thin liquids. No problems with chewing or swallowing noted. Receives nutritional supplement @ noon. Vital signs reviewed, BP's is variable. Continue weekly monitoring and refer to providers as needed. Pain: Has chronic lower extremities pain. Pain is controlled with Tylenol 1000mg TID, Oxycodone QID & Q4H PRN and has used occasionally with relief. Is able to tell when in pain and staff also anticipates for non verbal signs/symptoms of pain.
[2022-08-26] MEDS: OXYCODONE 5 MG TABLET PO ×4 (04:21→19:34)
[2022-08-26] MEDS: ACETAMINOPHEN 500 MG TABLET 1000 MG PO ×3 (07:52→19:33)
[2022-08-26] MEDS: SENNOSIDES/DOCUSATE TABLET 2 TAB PO ×2 (07:52→19:34)
[2022-08-26] MEDS: MAGNESIUM HYDROXIDE 30 ML ORAL.SUSP PO (08:39)
[2022-08-26] MEDS: bisacodyL 10 MG SUPP.RECT PR (13:00)
[2022-08-27] MEDS: OXYCODONE 5 MG TABLET PO ×4 (03:30→19:18)
[2022-08-27] MEDS: ACETAMINOPHEN 500 MG TABLET 1000 MG PO ×3 (07:34→19:18)
[2022-08-27] MEDS: SENNOSIDES/DOCUSATE TABLET 2 TAB PO ×2 (07:34→19:18)
[2022-08-28] MEDS: OXYCODONE 5 MG TABLET PO ×4 (04:00→19:07)
[2022-08-28] MEDS: ACETAMINOPHEN 500 MG TABLET 1000 MG PO ×3 (07:39→19:07)
[2022-08-28] MEDS: SENNOSIDES/DOCUSATE TABLET 2 TAB PO ×2 (07:40→19:08)
[2022-08-28 14:45] VITALS: BMI 30.8
[2022-08-28] MEDS: MAGNESIUM HYDROXIDE 30 ML ORAL.SUSP PO (16:40)
[2022-08-29] MEDS: OXYCODONE 5 MG TABLET PO ×4 (04:17→19:36)
[2022-08-29] MEDS: bisacodyL 10 MG SUPP.RECT PR (06:40)
[2022-08-29 07:00] VITALS: BMI 31.6
[2022-08-29] MEDS: SENNOSIDES/DOCUSATE TABLET 2 TAB PO ×2 (07:31→19:36)
[2022-08-29] MEDS: ACETAMINOPHEN 500 MG TABLET 1000 MG PO ×3 (07:31→19:36)
[2022-08-29 08:00] VITALS: BP 150/63; PULSE 60; RESP 16; TEMP 37.1; O2SAT 94
[2022-08-30] MEDS: OXYCODONE 5 MG TABLET PO ×4 (04:09→19:39)
[2022-08-30] MEDS: ACETAMINOPHEN 500 MG TABLET 1000 MG PO ×3 (07:26→19:39)
[2022-08-30] MEDS: SENNOSIDES/DOCUSATE TABLET 2 TAB PO ×2 (07:26→19:40)
[2022-08-30 10:15] VITALS: BMI 31.6
--- NOTE | 2022-08-30 10:55 | PC.NURSE ---
Weight change note: Resident's weight trending up this week with fluctuations noted. Last week's weight noted to be 174. Weight of 178.9 yesterday with reweigh of 179 noted today. Air Operations Manager left note in POLYMER MATERIALS CONSULTANT binder providing update. Trace edema noted to BLEs.
[2022-08-31] MEDS: OXYCODONE 5 MG TABLET PO ×4 (04:06→19:02)
[2022-08-31] MEDS: ACETAMINOPHEN 500 MG TABLET 1000 MG PO ×3 (07:49→19:01)
[2022-08-31] MEDS: SENNOSIDES/DOCUSATE TABLET 2 TAB PO ×2 (07:50→19:02)
--- NOTE | 2022-09-01 00:55 | PC.NURSE ---
Weekly Charting Week 2. Mobility Vital signs reviewed.BP is variable. Continue to monitor weekly, update provider as needed. ?Comprehensive and temporary care plan reviewed with no changes made.? Resident does not ambulate. Requires total assist of 1-2 staff? with transfer using Salvador lift, Salvador sling to remain under resident in wheelchair because when staff attempted to remove resident yells out and grabs out staff. Total assist of 1-2 staff with bed mobility. Has two 1/4 side rail for repositioning, up only during cares. Staff wheel to/from all destination. Res is high Fall risk. No history of fall in the past month. Fall intervention: Staff anticipated Res needs, call light within reach, bed in low position with brakes lock.
[2022-09-01] MEDS: OXYCODONE 5 MG TABLET PO ×4 (04:15→19:55)
[2022-09-01] MEDS: SENNOSIDES/DOCUSATE TABLET 2 TAB PO ×2 (06:51→19:55)
[2022-09-01] MEDS: ACETAMINOPHEN 500 MG TABLET 1000 MG PO ×3 (06:51→19:55)
--- NOTE | 2022-09-01 12:48 | PC.NURSE ---
Weekly Charting- Week 2: Vital signs, care plan and temporary care plan reviewed with no changes made. Resident is totally dependent for all bed mobility. Resident does not ambulate, uses Salvador life for all transfers. Resident has not had any falls in the past month. Resident has a score of 10 on last fall assessment (high fall risk). Resident is not on any ROM or ambulation programs.
[2022-09-02] MEDS: OXYCODONE 5 MG TABLET PO ×4 (04:14→19:05)
[2022-09-02] MEDS: SENNOSIDES/DOCUSATE TABLET 2 TAB PO ×2 (07:13→19:05)
[2022-09-02] MEDS: ACETAMINOPHEN 500 MG TABLET 1000 MG PO ×3 (07:13→19:04)
--- NOTE | 2022-09-02 13:42 | PC.NURSE ---
Behavior note: MISTY assisted nurse with ear irrigation per schedule. Resident noted to be swearing at staff during procedure yelling out, You fuckers! Staff had to redirect resident. No further behaviors noted after procedure completed.
[2022-09-03] MEDS: OXYCODONE 5 MG TABLET PO ×4 (04:17→19:06)
[2022-09-03] MEDS: ACETAMINOPHEN 500 MG TABLET 1000 MG PO ×3 (07:10→19:05)
[2022-09-03] MEDS: SENNOSIDES/DOCUSATE TABLET 2 TAB PO ×2 (07:10→19:06)
[2022-09-04] MEDS: OXYCODONE 5 MG TABLET PO ×4 (04:15→19:27)
[2022-09-04] MEDS: ACETAMINOPHEN 500 MG TABLET 1000 MG PO ×3 (08:01→19:27)
[2022-09-04] MEDS: SENNOSIDES/DOCUSATE TABLET 2 TAB PO ×2 (08:01→19:27)
[2022-09-04] MEDS: MAGNESIUM HYDROXIDE 30 ML ORAL.SUSP PO (16:21)
[2022-09-05] MEDS: OXYCODONE 5 MG TABLET PO ×4 (04:22→19:39)
[2022-09-05 07:00] VITALS: BP 148/98; PULSE 64; RESP 16; TEMP 36.2; O2SAT 97
[2022-09-05] MEDS: ACETAMINOPHEN 500 MG TABLET 1000 MG PO ×3 (07:33→19:39)
[2022-09-05] MEDS: SENNOSIDES/DOCUSATE TABLET 2 TAB PO ×2 (07:34→19:39)
[2022-09-05 12:55] VITALS: BMI 31.6
[2022-09-05] MEDS: bisacodyL 10 MG SUPP.RECT PR (12:56)
--- NOTE | 2022-09-05 13:00 | PC.NURSE ---
CARE CONFERENCE: Care conference meeting held with dietary, manager social work and nursing departments today. Resident present. No family members present. SS will reach out to family with any questions/concerns. Daughter did inquire via contact with [facility] today about baclofen pump refill appt scheduling--TUG HAND to follow up on this. Dietary advised that wts are stable and resident is eating well. Resident does take a dietary supplement at lunch meal. At times resident able to feed self depending on strength for that meal. Does best with finger foods. Nursing reviewed that resident continues to be total care with adls, transfers, and mobility. Resident enjoys patio time and will go to occasional activities. Enjoys sitting in during activities and participates as able. Care plan reviewed and updated. POLST reviewed. Uses no restraints. Medications given by nursing. No recent changes to meds. Vulnerability- is at risk for being harmed due to fragility and mental status. No questions/concerns at this time.?No plans for discharge at this time.
--- NOTE | 2022-09-05 14:26 | PC.SOCIAL ---
Resident's care conference was held today. Resident and members of the team were present. Resident has had a stable quarter no s/s of depression noted, mood is stable. Resident loves to be outside in the warm weather. Resident voiced no concerns and is due to have her baclifen pump refilled again at [facility] soon. DON to set this up and social work msw will set up transport.
[2022-09-06] MEDS: OXYCODONE 5 MG TABLET PO ×4 (03:51→20:32)
[2022-09-06] MEDS: ACETAMINOPHEN 500 MG TABLET 1000 MG PO ×3 (06:50→20:31)
[2022-09-06] MEDS: SENNOSIDES/DOCUSATE TABLET 2 TAB PO ×2 (06:50→20:32)
[2022-09-07] MEDS: OXYCODONE 5 MG TABLET PO ×4 (03:30→19:45)
[2022-09-07] MEDS: ACETAMINOPHEN 500 MG TABLET 1000 MG PO ×3 (06:43→19:45)
[2022-09-07] MEDS: SENNOSIDES/DOCUSATE TABLET 2 TAB PO ×2 (06:44→19:45)
--- NOTE | 2022-09-08 01:19 | PC.NURSE ---
Weekly Charting Week 3. Toileting and Skin. Vital signs reviewed. BP values variables, SONAR SUBSYSTEM EQUIPMENT OPERATOR aware, continue weekly BP monitoring, notify SONAR SUBSYSTEM EQUIPMENT OPERATOR as needed. Comprehensive and temporary care plan reviewed with no changes made. Toileting: Res is incontinent both bowel and bladder, Check and changed during first round and 3 rounds at Night. Staff 1-2 assist with enriqueta cares, incontinent pad, clothing adjustment. Wears XL briefs. Skin: +1 edema noted on bilateral lower extremities. Wears Jayjay socks on AM/Off Bed time. Wear heel protector when in bed for protection. Skin check routinely on bath days and during cares.
[2022-09-08] MEDS: OXYCODONE 5 MG TABLET PO ×4 (04:05→19:42)
--- NOTE | 2022-09-08 07:21 | PC.NURSE ---
WEEKLY CHARTING -WEEK 3- TOILETING & SKIN: Vital signs reviewed with occasional BP elevation. SUPERVISOR SCRAP PREPARATION aware and no changes made current medication. Staff will continue to monitor weekly and refer to provider as needed. Comprehensive & temporary care plan reviewed. No changes made. Nothing added to temporary care plan. Resident does not use the toilet. She is incontinent of bowel and bladder. She is checked and changed every 2 hours and PRN with 1-2 assists with Salvador lift transfer. Wears large briefs. All toileting needs including pads, enriqueta cares and clothing managed by staff. Skin: Her previous redness under her left armpit has healed with nystatin powder.No issues at this time. Heel boots when in bed & wheelchair.? Lotion to both legs and feet during cares in AM & HS. Skin is routinely checked during cares and on bath day.
[2022-09-08] MEDS: SENNOSIDES/DOCUSATE TABLET 2 TAB PO ×2 (07:51→19:42)
[2022-09-08] MEDS: ACETAMINOPHEN 500 MG TABLET 1000 MG PO ×3 (07:51→19:42)
[2022-09-09] MEDS: OXYCODONE 5 MG TABLET PO ×4 (03:58→19:38)
[2022-09-09] MEDS: SENNOSIDES/DOCUSATE TABLET 2 TAB PO ×2 (07:48→19:38)
[2022-09-09] MEDS: ACETAMINOPHEN 500 MG TABLET 1000 MG PO ×3 (07:48→19:38)
[2022-09-10] MEDS: OXYCODONE 5 MG TABLET PO ×4 (03:39→19:13)
[2022-09-10] MEDS: ACETAMINOPHEN 500 MG TABLET 1000 MG PO ×3 (07:58→19:13)
[2022-09-10] MEDS: SENNOSIDES/DOCUSATE TABLET 2 TAB PO ×2 (07:58→19:13)
--- NOTE | 2022-09-10 19:58 | PC.NURSE ---
MDS CLARIFICATION: Possible discrepancies in MISTY ADL charting noted. Staff were interviewed to provide clarification. Bed mobility: Per staff report, it was determined that resident required full staff assistance during the entire 7-day lookback period, coded as such. Tranfers: Resident is a margo lift x2 staff at all times, coded total dependence. Dressing: Per staff report it was determined that resident required full staff assistance during the entire 7-day lookback period, coded as such. Toileting: Per staff report, it was determined that resident required full staff assistance during the entire 7-day lookback period, coded as such.
[2022-09-11] MEDS: OXYCODONE 5 MG TABLET PO ×4 (04:04→19:44)
[2022-09-11] MEDS: ACETAMINOPHEN 500 MG TABLET 1000 MG PO ×3 (07:42→19:44)
[2022-09-11] MEDS: SENNOSIDES/DOCUSATE TABLET 2 TAB PO ×2 (07:42→19:44)
[2022-09-11] MEDS: polyethylene glycoL 238 GM BULK BOTTLE 17 GM PO (08:36)
[2022-09-11] MEDS: MAGNESIUM HYDROXIDE 30 ML ORAL.SUSP PO (17:15)
[2022-09-12] MEDS: OXYCODONE 5 MG TABLET PO ×4 (04:08→19:14)
[2022-09-12] MEDS: bisacodyL 10 MG SUPP.RECT PR (06:41)
[2022-09-12] MEDS: ACETAMINOPHEN 500 MG TABLET 1000 MG PO ×3 (07:00→19:14)
[2022-09-12] MEDS: SENNOSIDES/DOCUSATE TABLET 2 TAB PO ×2 (07:00→19:15)
[2022-09-12 09:29] VITALS: BP 144/59; PULSE 68; RESP 18; TEMP 36.6; O2SAT 97
--- NOTE | 2022-09-12 12:53 | PC.NURSE ---
Order note: DARYN Grayson gave order to change PRN Miralax 17 gm to scheduled Miralax 17 gm po daily due to constipation.
[2022-09-12 13:24] VITALS: BMI 30.8
[2022-09-13] MEDS: OXYCODONE 5 MG TABLET PO ×4 (04:07→19:09)
[2022-09-13 07:00] VITALS: BMI 30.9
[2022-09-13] MEDS: SENNOSIDES/DOCUSATE TABLET 2 TAB PO ×2 (07:00→19:09)
[2022-09-13] MEDS: ACETAMINOPHEN 500 MG TABLET 1000 MG PO ×3 (07:00→19:09)
[2022-09-13] MEDS: polyethylene glycoL 238 GM BULK BOTTLE 17 GM PO (07:00)
--- NOTE | 2022-09-13 15:08 | PC.NURSE ---
Addendum entered by Kym Anderson RN 09/14/22 11:53: Spoke with RN/Christine who confirmed with [facility] that resident actually has appointment scheduled for her Baclofen pump to get refilled on November 09 at 2:00pm. This ad copy writer sent E-mail to resident's daughter confirming that this appointment is accurate and included Marco to help assist with ride. Original Note: Telephone call to [facility] Department of [facility] PH: [phone] (Patient #[id number]) to schedule appointment for resident to get Baclofen pump refilled. Spoke with surgical scheduler who states that [facility] pump is not due to be refilled until November 17, and they do not recommend filling it sooner. Resident currently has appointment on OCT 09 at 2:00pm, HOWEVER, this needs to be rescheduled. Sent E-mail to resident's daughter, Imani ([email or web address]) to see when it would work for her to schedule appointment within the 2-week window before November 17. Awaiting response from daughter to reschedule appointment.
[2022-09-14] MEDS: OXYCODONE 5 MG TABLET PO ×4 (04:00→19:07)
[2022-09-14] MEDS: ACETAMINOPHEN 500 MG TABLET 1000 MG PO ×3 (07:25→19:07)
[2022-09-14] MEDS: SENNOSIDES/DOCUSATE TABLET 2 TAB PO ×2 (07:26→19:07)
[2022-09-14] MEDS: polyethylene glycoL 238 GM BULK BOTTLE 17 GM PO (07:26)
--- NOTE | 2022-09-14 23:59 | PC.NURSE ---
Weekly Charting week 4: Vital signs reviewed. Occasional BP elevated, CARPET FLOOR LAYER APPRENTICE aware, continue weekly monitoring, update provider as needed. Comprehensive and temporary care plan reviewed with no concerns. Behavior documented x1, Resident yelling and cursing staff. Res is not on? psychotropic medication. Hearing is intact, No visual impairment. Cognition is moderate impaired r/t dementia. Able to communicate basic needs, Staff anticipate needs. All medication administer by license nurse. Health condition is stable.
[2022-09-15] MEDS: OXYCODONE 5 MG TABLET PO ×4 (03:58→20:02)
[2022-09-15] MEDS: SENNOSIDES/DOCUSATE TABLET 2 TAB PO ×2 (06:50→20:02)
[2022-09-15] MEDS: ACETAMINOPHEN 500 MG TABLET 1000 MG PO ×3 (06:50→20:02)
--- NOTE | 2022-09-15 07:56 | PC.NURSE ---
WEEKLY CHARTING- WEEK 4 : Communication,Hearing/vision,Cognition/Behaviors,& Clinical Monitoring Vital signs reviewed with occasional variable of BP. Staff will continue weekly monitoring and refer to provider as needed.Comprehensive and temporary care plan reviewed. No changes made. & nothing added to temporary care plan. No changes noted in communication, hearing, vision, or orientation. Resident does communicate needs and also staff anticipates. Hearing and vision fine. Cognition is impaired r/t dementia.Resident has 1 behavior issue with cursing staff recorded this month however her cursing and grunting is normal with daily with positioning and changing diapers as resident has chronic pain. Her mood changes very often whereby one moment she can be angry and soon after she is very pleasant. She is not on any psychotropic medication currently. Nurse administers all medications without any issues. No changes in chronic health condition noted currently.
[2022-09-15] MEDS: polyethylene glycoL 238 GM BULK BOTTLE 17 GM PO (08:09)
[2022-09-15] MEDS: bisacodyL 10 MG SUPP.RECT PR (13:39)
[2022-09-16] MEDS: OXYCODONE 5 MG TABLET PO ×4 (04:12→19:12)
[2022-09-16] MEDS: ACETAMINOPHEN 500 MG TABLET 1000 MG PO ×3 (07:03→19:12)
[2022-09-16] MEDS: polyethylene glycoL 238 GM BULK BOTTLE 17 GM PO (07:04)
[2022-09-16] MEDS: SENNOSIDES/DOCUSATE TABLET 2 TAB PO ×2 (07:04→19:12)
[2022-09-16] MEDS: bisacodyL 10 MG SUPP.RECT PR (09:31)
--- NOTE | 2022-09-16 13:30 | PC.NURSE ---
Bowel note: Inspector Final Assembly Conveyor Line administered PRN Bisacodyl suppository this morning for no bowel movement since 09/12/22. Resident also received PRN suppository on 09/15/22 per documentation though no results according to bowel documentation. Abdomen noted to be firm upon palpation though resident denies abdominal pain/discomfort when asked. She did c/o nausea at breakfast this morning though refused PRN Maalox when offered. Resident reported feeling better when asked at lunch and drank 100% of nutritional supplement with lunch. Bowel sounds noted to be active in all four quadrants though still awaiting results from this morning's suppository. NARs aware that resident needs to have a bowel movement. MISTY reported resident did have a small amount of hard stool noted on 09/15/22.
--- NOTE | 2022-09-16 13:41 | PC.NURSE ---
Hunting Sales Associate initiated MISTY food monitoring under Interventions so that staff can keep assessment of resident's food intake as resident has been having more constipation issues recently. Hunting Sales Associate updated STONE SETTER APPRENTICE this past week on 09/12/22 and STONE SETTER APPRENTICE then gave order to schedule Miralax daily. Resident has otherwise had no changes in her medication or mobility status to influence this pattern of increased constipation. Will update oncoming staff and continue to monitor.
--- NOTE | 2022-09-16 14:16 | PC.NURSE ---
Pharmacy note: Food And Beverage Outlets Manager has faxed [facility] a copy of signed standing orders along with request that they send supply of Fleets enema to be administered per standing order as resident still has not yet had a bowel movement despite interventions provided. Evening nurses updated.
[2022-09-17] MEDS: OXYCODONE 5 MG TABLET PO ×4 (04:31→19:36)
[2022-09-17] MEDS: ACETAMINOPHEN 500 MG TABLET 1000 MG PO ×3 (06:41→19:36)
[2022-09-17] MEDS: polyethylene glycoL 238 GM BULK BOTTLE 17 GM PO (06:41)
[2022-09-17] MEDS: SENNOSIDES/DOCUSATE TABLET 2 TAB PO ×2 (06:42→19:36)
[2022-09-17] MEDS: MAGNESIUM HYDROXIDE 30 ML ORAL.SUSP PO (13:59)
--- NOTE | 2022-09-17 14:09 | PC.NURSE ---
BM: Resident has not had a BM in the last 5 days. Has hard abdominal distention in the LLQ. Pain with palpation on all four quadrants. Bowels sounds are active in all four quadrants. VSS. Resident had a Bisacodyl 10mg Suppository on this last Sunday and Sunday morning. Had an Enema today at noon. All with no results. Credit Analysis Manager called [facility] to update on condition. Got a telephone verbal read back order of milk of magnesium 30cc once now. MOM was given by quality analyst/technical writer at 1400.
[2022-09-17 14:19] VITALS: BP 107/46; PULSE 67; RESP 16; TEMP 36.9; O2SAT 91
--- NOTE | 2022-09-17 21:55 | PC.NURSE ---
Bowel: No results from MOM given on AM shift, continue to have some abdominal distention with bowel sounds positive x 4, denies any nausea this shift.
[2022-09-18] MEDS: OXYCODONE 5 MG TABLET PO ×4 (04:08→19:32)
--- NOTE | 2022-09-18 05:28 | PC.NURSE ---
Bowel management Resident is on day five without bowel movement ; she got enema yesterday without result. Rectum checked negative, bowel sounds active, abdomen soft.
[2022-09-18] MEDS: polyethylene glycoL 238 GM BULK BOTTLE 17 GM PO (07:35)
[2022-09-18] MEDS: ACETAMINOPHEN 500 MG TABLET 1000 MG PO ×3 (07:35→19:32)
[2022-09-18] MEDS: SENNOSIDES/DOCUSATE TABLET 2 TAB PO ×2 (07:35→19:32)
[2022-09-18] MEDS: MAG HYDROX/ALUMINUM HYD/SIMETH 30 ML ORAL.SUSP PO (07:40)
[2022-09-18 11:23] VITALS: BP 123/57; PULSE 60; RESP 16; TEMP 36.8; O2SAT 97
--- NOTE | 2022-09-18 11:27 | PC.NURSE ---
Bowel note: Per documentation and staff report, resident still has had no bowel movement since 09/12/22. Resident denies pain when asked today including palpation of abdomen and bowel sounds remain active in all four quadrants. Resident has been given scheduled bowel medications and also dose of PRN MOM PSO this morning along with PRN MOM yesterday afternoon per VALVE MAKER order. Vital signs: B/P 123/57, P 60, R 16, T 98.2, O2 sat 97% on RA. Resident has been eating and drinking per normal routine and has had no c/o nausea or any emesis noted. Will place call to [facility] Triage to update provider for ongoing treatment of this issue.
--- NOTE | 2022-09-18 11:33 | PC.NURSE ---
Provider update: Jewelry Mold Maker updated [facility] Triage at this time regarding no BM since 09/12/22. [facility] Triage nurse will update provider and send any orders to Care Team.
--- NOTE | 2022-09-18 12:55 | PC.NURSE ---
Order note: New order received per WEIGH BOSS Maggie Grayson: Administer magnesium citrate oral solution- 195 ml x1 for constipation. Casualty Insurance Claim Adjuster called hospital pharmacy to inquire if there is supply of this medication here to administer now though was informed they do not have supply. Casualty Insurance Claim Adjuster then called [facility] and was informed they do have supply of this medication to be sent out this evening. Casualty Insurance Claim Adjuster faxed order to [facility] requesting supply be sent.
--- NOTE | 2022-09-18 13:49 | PC.NURSE ---
Family update: Stoker Erector And Servicer updated daughter Lisa regarding resident having no BM noted since 09/12/22 and interventions that staff have previously completed. Daughter also updated that Magnesium Citrate is ordered to be given upon arrival of medication this evening.
[2022-09-19] MEDS: OXYCODONE 5 MG TABLET PO ×4 (04:00→20:06)
[2022-09-19] MEDS: bisacodyL 10 MG SUPP.RECT PR (06:25)
[2022-09-19 07:14] VITALS: BP 113/60; PULSE 62; RESP 16; TEMP 36.8; O2SAT 98
--- NOTE | 2022-09-19 07:15 | PC.NURSE ---
Bowel note: Resident has still had no BM noted since 09/12/22. Corporate Giving Manager again assessed abdomen and noted abdomen to be firm though resident denies pain upon palpation and bowel sounds remain active in all four quadrants. Corporate Giving Manager performed digital rectal check to assess for any impaction though noted no impaction. Corporate Giving Manager did note formed stool felt at distal end of finger while doing rectal check. Corporate Giving Manager then administered PRN Bisacodyl suppository at 0625 PSO. Resident continues to have no vomiting noted. farm laborer also assessed resident's abdomen including pain upon palpation. Vital signs: B/P 113/60, P 62, R 16, T 98.3, O2 sat 98% on RA. BUTTONHOLE MAKER HAND will be visiting [facility] today, will discuss resident's status with provider and continue to monitor.
[2022-09-19] MEDS: SENNOSIDES/DOCUSATE TABLET 2 TAB PO ×2 (07:36→20:06)
[2022-09-19] MEDS: polyethylene glycoL 238 GM BULK BOTTLE 17 GM PO (07:36)
[2022-09-19] MEDS: ACETAMINOPHEN 500 MG TABLET 1000 MG PO ×3 (07:36→20:05)
[2022-09-19 08:00] VITALS: BMI 31.1
--- NOTE | 2022-09-19 10:43 | PC.NURSE ---
Status/Order: Resident was seen by DARYN Serrano regarding bowel movement status : Ordered 10mg Bisacodyl PA daily PRN. Staff continue to monitor resident's bowel movement and ensure proper charting.
--- NOTE | 2022-09-20 | CRLHL7_ITS ---
For Patients: As a result of the Century Cures Act, medical imaging exams and procedure reports are released immediately into your electronic medical record. You may view this report before your referring provider. If you have questions, please contact your health care provider. INDICATION: Possible bowel obstruction. COMPARISON: None. TECHNIQUE: Abdomen 5 view. FINDINGS: Nonobstructive bowel gas pattern. Moderate amount of gas in stool throughout the colon. No free air identified on decubitus views. No sign of pneumatosis. Left pelvic generator pack with lead tip overlying the T11 vertebral body. Elevation of the right hemidiaphragm. The lung bases are clear. Calcified mediastinal and bilateral hilar lymph nodes. Left convex thoracolumbar curve. Osteopenia. IMPRESSION: Nonobstructive bowel gas pattern. Dictated by Ary Petersen MD @ 09/20/2022 3:15:17 PM (Electronically Signed)
[2022-09-20] MEDS: OXYCODONE 5 MG TABLET PO ×4 (03:58→20:01)
[2022-09-20] MEDS: SENNOSIDES/DOCUSATE TABLET 2 TAB PO ×2 (07:01→20:01)
[2022-09-20] MEDS: ACETAMINOPHEN 500 MG TABLET 1000 MG PO ×3 (07:01→20:01)
[2022-09-20] MEDS: polyethylene glycoL 238 GM BULK BOTTLE 17 GM PO (07:01)
--- NOTE | 2022-09-20 11:30 | PC.NURSE ---
VRBO: 1 view abd x-ray to r/o possible bowel obstruction per Maggie Grayson NP. Floor staff updated.
--- NOTE | 2022-09-20 13:21 | PC.NURSE ---
Order note: BRUSHER TENDER received order for abdominal xray from ELECTRICAL TIMING DEVICE CALIBRATOR to assess if resident has any kind of bowel obstruction due to only one small BM noted since 09/12/22 despite bowel interventions. Xray being completed at this time.
--- NOTE | 2022-09-20 15:38 | PC.NURSE ---
Abdominal X-ray: Xray done of abdomen due to questions of possible bowel obstruction. Findings are Nonobstructive bowel gas pattern. Moderate amount of gas in stool throughout the colon. No free air identified on decubitus views. No sign of pnematosis. Left pelvic generator pack with lead tip overlying the T11 vertebral body. Elevation of the right hemidiaphragm. The lung bases are clear. Calcified mediastinal and bilateral hilar lymph nodes. Left convex thoracolumbar curve. Osteopenia. Will send results to [facility].
[2022-09-21] MEDS: OXYCODONE 5 MG TABLET PO ×4 (04:28→19:33)
[2022-09-21] MEDS: SENNOSIDES/DOCUSATE TABLET 2 TAB PO ×2 (07:01→19:33)
[2022-09-21] MEDS: ACETAMINOPHEN 500 MG TABLET 1000 MG PO ×3 (07:01→19:33)
[2022-09-21] MEDS: polyethylene glycoL 238 GM BULK BOTTLE 17 GM PO (07:01)
[2022-09-21] MEDS: bisacodyL 10 MG SUPP.RECT PR (10:29)
[2022-09-22] MEDS: OXYCODONE 5 MG TABLET PO ×4 (03:52→20:23)
[2022-09-22] MEDS: SENNOSIDES/DOCUSATE TABLET 2 TAB PO ×2 (07:36→20:23)
[2022-09-22] MEDS: polyethylene glycoL 238 GM BULK BOTTLE 17 GM PO (07:36)
[2022-09-22] MEDS: ACETAMINOPHEN 500 MG TABLET 1000 MG PO ×3 (07:36→20:22)
--- NOTE | 2022-09-22 10:37 | PC.NURSE ---
Condition: Resident has bowel signs x4, denies any pain upon palpitation, was given miralax and senna as ordered along with prunes at breakfast
[2022-09-23] MEDS: OXYCODONE 5 MG TABLET PO ×4 (04:06→19:36)
[2022-09-23] MEDS: polyethylene glycoL 238 GM BULK BOTTLE 17 GM PO (07:33)
[2022-09-23] MEDS: ACETAMINOPHEN 500 MG TABLET 1000 MG PO ×3 (07:33→19:36)
[2022-09-23] MEDS: SENNOSIDES/DOCUSATE TABLET 2 TAB PO ×2 (07:33→19:36)
[2022-09-24] MEDS: OXYCODONE 5 MG TABLET PO ×4 (03:55→19:34)
[2022-09-24] MEDS: ACETAMINOPHEN 500 MG TABLET 1000 MG PO ×3 (07:36→19:34)
[2022-09-24] MEDS: SENNOSIDES/DOCUSATE TABLET 2 TAB PO ×2 (07:37→19:34)
[2022-09-24] MEDS: polyethylene glycoL 238 GM BULK BOTTLE 17 GM PO (07:37)
[2022-09-25] MEDS: OXYCODONE 5 MG TABLET PO ×4 (04:09→20:59)
[2022-09-25] MEDS: SENNOSIDES/DOCUSATE TABLET 2 TAB PO ×2 (07:45→20:59)
[2022-09-25] MEDS: ACETAMINOPHEN 500 MG TABLET 1000 MG PO ×3 (07:45→20:59)
[2022-09-25] MEDS: polyethylene glycoL 238 GM BULK BOTTLE 17 GM PO (07:45)
[2022-09-26] MEDS: OXYCODONE 5 MG TABLET PO ×4 (04:07→19:21)
[2022-09-26] MEDS: polyethylene glycoL 238 GM BULK BOTTLE 17 GM PO (07:06)
[2022-09-26] MEDS: SENNOSIDES/DOCUSATE TABLET 2 TAB PO ×2 (07:06→19:21)
[2022-09-26] MEDS: ACETAMINOPHEN 500 MG TABLET 1000 MG PO ×3 (07:06→19:21)
[2022-09-26 10:42] VITALS: BP 115/58; PULSE 66; RESP 20; TEMP 36.8; O2SAT 97
[2022-09-27] MEDS: OXYCODONE 5 MG TABLET PO ×4 (04:15→19:03)
[2022-09-27] MEDS: ACETAMINOPHEN 500 MG TABLET 1000 MG PO ×3 (07:20→19:03)
[2022-09-27] MEDS: SENNOSIDES/DOCUSATE TABLET 2 TAB PO ×2 (07:21→19:03)
[2022-09-27] MEDS: polyethylene glycoL 238 GM BULK BOTTLE 17 GM PO (07:21)
--- NOTE | 2022-09-27 14:10 | PC.SPIRITC ---
I provided visit for support and connection.
[2022-09-28] MEDS: OXYCODONE 5 MG TABLET PO ×4 (04:08→19:03)
[2022-09-28] MEDS: ACETAMINOPHEN 500 MG TABLET 1000 MG PO ×3 (08:17→19:03)
[2022-09-28] MEDS: SENNOSIDES/DOCUSATE TABLET 2 TAB PO ×2 (08:18→19:03)
[2022-09-28] MEDS: polyethylene glycoL 238 GM BULK BOTTLE 17 GM PO (08:18)
--- NOTE | 2022-09-29 01:43 | PC.NURSE ---
Weekly Charting Week 1: PAIN and ADLs Vital signs reviewed. BP reading is variable. ERECTING ENGINEER is aware, staff to continue weekly monitoring, Update ERECTING ENGINEER as needed. Comprehensive and temporary care plan reviewed with no changes made. PAIN: Resident has chronic lower extremities pain. Pain is controlled with Tylenol 1000mg TID, Oxycodone QID & Q4H PRN.No complain of pain the past month. Res is able to verbalize when in pain and staff also anticipates for non verbal signs/symptoms of pain. ADLS: Resident needs 1-2 assist with dressing and bathing. Bed bath only. One assist with grooming and oral cares.? Needs partial assist with feeding. Staff initiate and encourage to feed self after set up. Resident is on regular diet, regular texture, thin liquids. No problems with chewing or swallowing noted.
[2022-09-29] MEDS: OXYCODONE 5 MG TABLET PO ×4 (04:07→19:08)
[2022-09-29] MEDS: SENNOSIDES/DOCUSATE TABLET 2 TAB PO ×2 (07:05→19:09)
[2022-09-29] MEDS: ACETAMINOPHEN 500 MG TABLET 1000 MG PO ×3 (07:05→19:08)
[2022-09-29] MEDS: polyethylene glycoL 238 GM BULK BOTTLE 17 GM PO (07:05)
[2022-09-30] MEDS: OXYCODONE 5 MG TABLET PO ×4 (04:43→19:21)
[2022-09-30] MEDS: ACETAMINOPHEN 500 MG TABLET 1000 MG PO ×3 (07:14→19:21)
[2022-09-30] MEDS: polyethylene glycoL 238 GM BULK BOTTLE 17 GM PO (07:14)
[2022-09-30] MEDS: SENNOSIDES/DOCUSATE TABLET 2 TAB PO ×2 (07:14→19:21)
[2022-10-01] MEDS: OXYCODONE 5 MG TABLET PO ×4 (04:45→19:34)
[2022-10-01] MEDS: ACETAMINOPHEN 500 MG TABLET 1000 MG PO ×3 (07:28→19:34)
[2022-10-01] MEDS: polyethylene glycoL 238 GM BULK BOTTLE 17 GM PO (07:29)
[2022-10-01] MEDS: SENNOSIDES/DOCUSATE TABLET 2 TAB PO ×2 (07:29→19:35)
[2022-10-02] MEDS: OXYCODONE 5 MG TABLET PO ×4 (04:10→19:25)
[2022-10-02] MEDS: ACETAMINOPHEN 500 MG TABLET 1000 MG PO ×3 (07:49→19:25)
[2022-10-02] MEDS: SENNOSIDES/DOCUSATE TABLET 2 TAB PO ×2 (07:49→19:25)
[2022-10-02] MEDS: polyethylene glycoL 238 GM BULK BOTTLE 17 GM PO (07:49)
[2022-10-03] MEDS: OXYCODONE 5 MG TABLET PO ×4 (04:04→19:24)
[2022-10-03] MEDS: SENNOSIDES/DOCUSATE TABLET 2 TAB PO ×2 (07:22→19:24)
[2022-10-03] MEDS: ACETAMINOPHEN 500 MG TABLET 1000 MG PO ×3 (07:22→19:24)
[2022-10-03] MEDS: polyethylene glycoL 238 GM BULK BOTTLE 17 GM PO (07:22)
[2022-10-03 09:13] VITALS: BP 130/80; PULSE 76; RESP 18; TEMP 36.3; O2SAT 96; BMI 30.4
[2022-10-04] MEDS: OXYCODONE 5 MG TABLET PO ×4 (04:06→19:34)
[2022-10-04] MEDS: polyethylene glycoL 238 GM BULK BOTTLE 17 GM PO (07:04)
[2022-10-04] MEDS: ACETAMINOPHEN 500 MG TABLET 1000 MG PO ×3 (07:04→19:34)
[2022-10-04] MEDS: SENNOSIDES/DOCUSATE TABLET 2 TAB PO ×2 (07:04→19:34)
[2022-10-05] MEDS: OXYCODONE 5 MG TABLET PO ×4 (04:30→19:33)
[2022-10-05] MEDS: polyethylene glycoL 238 GM BULK BOTTLE 17 GM PO (07:39)
[2022-10-05] MEDS: ACETAMINOPHEN 500 MG TABLET 1000 MG PO ×3 (07:39→19:33)
[2022-10-05] MEDS: SENNOSIDES/DOCUSATE TABLET 2 TAB PO ×2 (07:39→19:33)
--- NOTE | 2022-10-05 15:19 | PC.PHA1 ---
MOTORCYCLE SUBASSEMBLY REPAIRER PHARMACIST'S MEDICATION REVIEW: MEDICATION MONITORING:No psychotropics ordered. IRREGULARITY OR COMMENTS:Patient has been dealing with constipation. Scheduled Miralax daily added to existing regimen of scheduled senna. No other changes to medication regimen. Baclofen pump refill scheduled for October. SUGGESTED COURSE OF ACTION TAKEN:No medication recommendations this review, notes from August - reviewed.
--- NOTE | 2022-10-06 01:07 | PC.NURSE ---
Weekly Charting Week 2 Mobility Vital signs reviewed. BP's is variable. Staff to continue weekly monitoring update provider as needed. ?Comprehensive and temporary care plan reviewed with no changes made.? Resident does not ambulate. Requires total assist of 1-2 staff? with transfer using Salvador lift, Salvador sling to remain under resident in wheelchair because when staff attempted to remove resident yells out and grabs out staff. Total assist of 1-2 staff with bed mobility. Has no alarm. Has two 1/4 side rail for repositioning, up only during cares. Staff wheel to/from all destination. Res is high Fall risk according to assessment done on 08/29/2022. No history of fall in the past month. Fall intervention: Staff anticipated Res needs, call light within reach, bed in low position with brakes lock.
[2022-10-06] MEDS: OXYCODONE 5 MG TABLET PO ×4 (04:20→19:49)
--- NOTE | 2022-10-06 07:52 | PC.NURSE ---
Weekly Charting, Week 2 - Mobility: Comprehensive & temporary care plan reviewed, no changes made. Nothing added to temporary care plan. Resident needs limited assist, transfer belt and walker with transfers and ambulation. Is independent with bed mobility. Bilateral 1/4 side rails up at all times to promote independence/positioning. No alarms. Vital signs reviewed, few elevated BP's. Continue weekly monitoring and refer to provider as needed. Fall:? No falls the past months.? Remains a high fall risk according to assessment done on 08/29/22. Fall interventions: Call light within reach, bed in low position brakes locked, falling star magnet, dycem in recliner, gripper socks/shoes for all transfers.
[2022-10-06] MEDS: ACETAMINOPHEN 500 MG TABLET 1000 MG PO ×3 (08:03→19:49)
[2022-10-06] MEDS: SENNOSIDES/DOCUSATE TABLET 2 TAB PO ×2 (08:04→19:49)
[2022-10-06] MEDS: polyethylene glycoL 238 GM BULK BOTTLE 17 GM PO (08:04)
[2022-10-07] MEDS: OXYCODONE 5 MG TABLET PO ×4 (04:01→20:02)
[2022-10-07] MEDS: ACETAMINOPHEN 500 MG TABLET 1000 MG PO ×3 (07:48→20:02)
[2022-10-07] MEDS: SENNOSIDES/DOCUSATE TABLET 2 TAB PO ×2 (07:48→20:02)
[2022-10-07] MEDS: polyethylene glycoL 238 GM BULK BOTTLE 17 GM PO (07:48)
[2022-10-08] MEDS: OXYCODONE 5 MG TABLET PO ×4 (04:33→19:56)
[2022-10-08] MEDS: ACETAMINOPHEN 500 MG TABLET 1000 MG PO ×3 (07:26→19:56)
[2022-10-08] MEDS: polyethylene glycoL 238 GM BULK BOTTLE 17 GM PO (07:27)
[2022-10-08] MEDS: SENNOSIDES/DOCUSATE TABLET 2 TAB PO ×2 (07:27→19:57)
[2022-10-09] MEDS: OXYCODONE 5 MG TABLET PO ×4 (04:58→20:19)
[2022-10-09] MEDS: ACETAMINOPHEN 500 MG TABLET 1000 MG PO ×3 (07:30→20:19)
[2022-10-09] MEDS: SENNOSIDES/DOCUSATE TABLET 2 TAB PO ×2 (07:31→20:19)
[2022-10-09] MEDS: polyethylene glycoL 238 GM BULK BOTTLE 17 GM PO (07:31)
[2022-10-10] MEDS: OXYCODONE 5 MG TABLET PO ×4 (03:42→19:17)
[2022-10-10] MEDS: NYSTATIN POWDER 1 APPLIC TOPICAL (06:35)
[2022-10-10 06:56] VITALS: BP 113/69; PULSE 64; RESP 16; TEMP 36.1; O2SAT 94
[2022-10-10] MEDS: SENNOSIDES/DOCUSATE TABLET 2 TAB PO ×2 (07:14→19:17)
[2022-10-10] MEDS: ACETAMINOPHEN 500 MG TABLET 1000 MG PO ×3 (07:14→19:17)
[2022-10-10] MEDS: polyethylene glycoL 238 GM BULK BOTTLE 17 GM PO (07:14)
[2022-10-10 09:02] VITALS: BMI 30.8
[2022-10-11] MEDS: OXYCODONE 5 MG TABLET PO ×4 (04:12→19:22)
[2022-10-11] MEDS: polyethylene glycoL 238 GM BULK BOTTLE 17 GM PO (07:17)
[2022-10-11] MEDS: SENNOSIDES/DOCUSATE TABLET 2 TAB PO ×2 (07:17→19:22)
[2022-10-11] MEDS: ACETAMINOPHEN 500 MG TABLET 1000 MG PO ×3 (07:17→19:22)
--- NOTE | 2022-10-11 11:21 | PC.PHA1 ---
CIRCUS TRAIN SUPERVISOR PHARMACIST'S MEDICATION REVIEW: MEDICATION MONITORING:No psychotropic medications to monitor. IRREGULARITY OR COMMENTS:Patient has baclofen pump refill appointment 10/28/22. Constipation issues since last review have resolved per nursing notes. SUGGESTED COURSE OF ACTION TAKEN:No medication reccomendations this review.
--- NOTE | 2022-10-11 21:50 | PC.NURSE ---
Behaviors: At dinner time she was talking about how she drove here and she needed to talk to her daughter about her car. After she was put to bed she was seeing animals and monstors on the wall.
[2022-10-12] MEDS: OXYCODONE 5 MG TABLET PO ×4 (04:05→20:12)
[2022-10-12] MEDS: ACETAMINOPHEN 500 MG TABLET 1000 MG PO ×3 (07:30→20:12)
[2022-10-12] MEDS: polyethylene glycoL 238 GM BULK BOTTLE 17 GM PO (07:31)
[2022-10-12] MEDS: SENNOSIDES/DOCUSATE TABLET 2 TAB PO ×2 (07:31→20:12)
--- NOTE | 2022-10-12 10:43 | PC.SOCIAL ---
Completed preadmission screening for resident to admit to [facility] on 10/18/22. Confirmation #[id number].
--- NOTE | 2022-10-13 01:24 | PC.NURSE ---
Weekly Charting Week 3 Toileting and Skin Vital signs reviewed with no concerns. Comprehensive and Temporary care plan reviewed with no changes made. Toileting: Res is? incontinent both bowel and bladder, Check and changed during first round and 3 rounds at Night. Shanae cares, incontinent pad, clothing adjustment managed by the staff 1 assist. Wears XL briefs. SKIN: Intermittent redness on Right axilla, Apply Nystatin powder as needed .? Wear heel protector when in bed for protection
[2022-10-13] MEDS: OXYCODONE 5 MG TABLET PO ×4 (04:08→19:25)
[2022-10-13] MEDS: ACETAMINOPHEN 500 MG TABLET 1000 MG PO ×3 (07:19→19:25)
[2022-10-13] MEDS: SENNOSIDES/DOCUSATE TABLET 2 TAB PO ×2 (07:20→19:25)
[2022-10-13] MEDS: polyethylene glycoL 238 GM BULK BOTTLE 17 GM PO (07:20)
--- NOTE | 2022-10-13 07:25 | PC.NURSE ---
Weekly Charting, Week 3-Toileting: Comprehensive & temporary care plan reviewed. No changes made. Nothing added to temporary care plan. Resident does not use the toilet. She is incontinent of bowel and bladder. Is checked and changed every 2 hours and PRN with 1-2 assists. Wears large briefs. All toileting needs including pads, enriqueta cares and clothing managed by staff. Vital signs reviewed, BP varies. Continue with weekly monitoring and refer to provider as needed. Skin: Has redness on both armpits. Nystatin powder applied until healed. Heel boots when in bed & wheelchair.?Teds bilateral legs, on-am & off-hs. Lotion to both legs and feet during cares in AM & HS. Skin is routinely checked during cares and on bath day.
[2022-10-14] MEDS: OXYCODONE 5 MG TABLET PO ×4 (04:12→19:28)
[2022-10-14] MEDS: polyethylene glycoL 238 GM BULK BOTTLE 17 GM PO (07:15)
[2022-10-14] MEDS: ACETAMINOPHEN 500 MG TABLET 1000 MG PO ×3 (07:15→19:28)
[2022-10-14] MEDS: SENNOSIDES/DOCUSATE TABLET 2 TAB PO ×2 (07:15→19:28)
[2022-10-15] MEDS: OXYCODONE 5 MG TABLET PO ×4 (04:17→19:22)
[2022-10-15] MEDS: ACETAMINOPHEN 500 MG TABLET 1000 MG PO ×3 (07:08→19:22)
[2022-10-15] MEDS: SENNOSIDES/DOCUSATE TABLET 2 TAB PO (07:08)
[2022-10-16] MEDS: OXYCODONE 5 MG TABLET PO ×4 (04:14→19:08)
[2022-10-16] MEDS: ACETAMINOPHEN 500 MG TABLET 1000 MG PO ×3 (07:26→19:08)
[2022-10-17] MEDS: OXYCODONE 5 MG TABLET PO ×4 (04:12→19:23)
[2022-10-17] MEDS: NYSTATIN POWDER 1 APPLIC TOPICAL (06:45)
[2022-10-17 07:00] VITALS: BMI 30.4
[2022-10-17] MEDS: SENNOSIDES/DOCUSATE TABLET 2 TAB PO ×2 (07:09→19:23)
[2022-10-17] MEDS: ACETAMINOPHEN 500 MG TABLET 1000 MG PO ×3 (07:09→19:23)
[2022-10-17] MEDS: polyethylene glycoL 238 GM BULK BOTTLE 17 GM PO (07:10)
--- NOTE | 2022-10-17 07:26 | PC.NURSE ---
Behavior note: Resident rejecting cares and being verbally abusive toward staff during bed bath this morning. Resident yelling, Oh fuck you! I don't care when staff were assisting her with bed bath. 1:1 provided along with position change, providing fluids and leaving in safe setting. Resident noted to still be irritated with staff asking, Why do I have to have my hair washed? after being assisted with bed bath. Resident may be anxious about upcoming discharge tomorrow (10/18/22). Resident has been given scheduled pain medications and encouraged to rest.
[2022-10-17 10:06] VITALS: BP 114/61; PULSE 61; RESP 18; TEMP 36.9; O2SAT 91
--- NOTE | 2022-10-17 11:16 | PC.NURSE ---
Order: Renuka STEARNS here. Dulcolax supp daily PRN & Oxycodone 5 mg PRN discontinued.
[2022-10-18] MEDS: OXYCODONE 5 MG TABLET PO ×2 (04:06→07:18)
[2022-10-18] MEDS: NYSTATIN POWDER 1 APPLIC TOPICAL (06:53)
[2022-10-18] MEDS: polyethylene glycoL 238 GM BULK BOTTLE 17 GM PO (07:12)
[2022-10-18] MEDS: SENNOSIDES/DOCUSATE TABLET 2 TAB PO (07:12)
[2022-10-18] MEDS: ACETAMINOPHEN 500 MG TABLET 1000 MG PO (07:12)
--- NOTE | 2022-10-18 12:10 | PC.NURSE ---
RECAPITULATION NOTE: Resident was admitted to [facility] on 01/04/2000. They have an extensive medical history including: multiple sclerosis, chronic pain syndrome, senile degeneration of brain, recurrent major depression, and peripheral vascular disease. They discharged today to [facility] for ongoing care needs since [facility] is closing. Resident was sent with discharge orders, remaining supply of medications, POLST/Advance directives, signed active med list, active care plan and MDS. They did require prescription for controlled medication (oxycodone). Belongings were inventoried and signed. Discharge summary completed by provider. Resident remains DNR/DNI - comfort focused. Discharge orders and pertinent notes faxed to [facility] at [phone]. Resident was accompanied by RN/Deanna to the care center. All questions answered.?
--- NOTE | 2022-10-18 13:24 | PC.NURSE ---
Telephone call to [employer] [employer] [facility] [phone] to pharmacy picking tech rented air mattress in resident's room since she discharged this morning. Per office services representative, they will come retrieve the mattress as soon as possible.
== END | DRG 43 ==
PROVIDERS: Family Medicine; Admitting Provider Family Medicine; Family Provider Nurse Practitioner Gerontology; Visit Provider Family Medicine
DX: G35 Multiple sclerosis (principal); F33.9 Major depressive disorder, recurrent, unspecified; E03.9 Hypothyroidism, unspecified; K59.00 Constipation, unspecified; E87.6 Hypokalemia
CPT/HCPCS: 36415; 74018; 74019; 80048; 84132; 87635; 90471; 90662